=== PATIENT | female | born 1950 | race Caucasian/White ===

== ENCOUNTER 2020-05-20 16:00 | Inpatient (IN) ==
[2020-05-20 16:42] LABS: Basophils # (auto) 0.02 K/uL (0-0.2); Basophils % (auto) 0.3 %; Eosinophils # (auto) 0.03 K/uL (0-0.5); Eosinophils % (auto) 0.4 %; Hematocrit (blood only) 40.1 % (37-47); Hemoglobin 14.7 g/dL (12.0-16.0); Immature Granulocytes # (auto) 0.02 K/uL (0.00-0.02); Immature Granulocytes % (auto) 0.3 %; Lymphocytes # (auto) 1.57 K/uL (1.2-3.4); Lymphocytes % (auto) 20.7 %; Mean Corpuscular Hemoglobin 33.2 pg (25-34); Mean Corpuscular Hgb Conc 36.7 g/dL (32-36); Mean Corpuscular Volume 90.5 fL (80-100); Mean Platelet Volume 10.1 fL (7.4-10.4); Monocytes # (auto) 0.38 K/uL (0.11-0.59); Neutrophils # (auto) 5.57 K/uL (1.4-6.5); Neutrophils % (auto) 73.3 %; Platelet Count 252 K/uL (130-400); RDW Coefficient of Variation 12.5 % (11.5-14.5); RDW Standard Deviation 41.9 fL (36.4-46.3); Red Blood Count 4.43 M/uL (4.2-5.4); White Blood Count 7.59 K/uL (4.8-10.8)
--- NOTE | 2020-05-20 16:51 | CT Scan Report ---
CT head/brain wo con CLINICAL HISTORY: Acute change in mental status COMPARISON STUDY: No previous studies for comparison. TECHNIQUE: Axial CT of the brain is performed from the vertex to the skull base. IV contrast was not administered for this examination. A dose lowering technique was utilized adhering to the principles of ALARA. CT DOSE: 537.48 mGy.cm FINDINGS: No intra or extra-axial mass lesions are visualized. There is no CT evidence of acute cortical infarc tion. There is no evidence of midline shift. There is no acute hemorrhage. No calvarial fractures ar e visualized. There are patchy white matter hypodensities likely on a small vessel basis. There is no evidence of pathologic ventricular dilatation. There is no evidence of acute sinusitis IMPRESSION: No acute intracranial findings ACT 112: Negative or not required by law. Electronically signed by: Micha Mar M.D. 05/20/2020 4:49 PM
[2020-05-20 17:05] LABS: Albumin Level 4.1 gm/dl (3.4-5.0); BUN Creatinine Ratio 15.9 (10-20); Calcium 9.5 mg/dl (8.5-10.1); Creatinine Clr Calc Pharmacy 46.9 ml/min; Est GFR (Non-African American) 77.7; Potassium 4.1 mmol/L (3.5-5.1)
--- NOTE | 2020-05-20 17:08 | XRay Report ---
XR chest 1V portable CLINICAL HISTORY: Acute change in mental status COMPARISON STUDY: No previous studies for comparison. FINDINGS: The cardiac and mediastinal contours are normal. There is no evidence of focal pulmonary co nsolidation. There is no evidence of failure. No pleural effusions are visualized.[There is an electr onic device projected over the central chest, possibly representing an event recorder. A rounded opac ity at the right lung base is felt to represent a nipple shadow. IMPRESSION: No active disease in the chest. ACT 112: Negative or not required by law. Electronically signed by: Micha Mar M.D. 05/20/2020 5:06 PM
[2020-05-20 17:15] LABS: Albumin Globulin Ratio 1.1 (0.9-2); Bilirubin,Total 0.4 mg/dl (0.2-1); Globulin 3.6 gm/dl (2.5-4.0); Thyroid Stimulating Hormone 1.24 uIu/ml (0.300-4.500); Total Protein 7.7 gm/dl (6.4-8.2)
[2020-05-20 17:17] LABS: Acetaminophen < 2 ug/ml (10-30); Salicylate 4.6 mg/dl (2.8-20)
[2020-05-20 18:07] LABS: Appearance Urine Clear (Clear); Bacteria Urine Automated 4+ (Negative); Bilirubin Urine Negative (Negative); Blood Urine 1+ (Negative); Cast Urine Automated 0 /lpf (0-5); Color Urine Yellow; Glucose Urine UA Negative (Negative); Ketones Urine Negative (Negative); Leukocyte Esterase Urine Trace (Negative); Nitrite Urine Negative (Negative); Protein Urine Negative (Negative); Specific Gravity Urine 1.011 (1.000-1.030); Urobilinogen Urine Negative (Negative)
[2020-05-20] MEDS ORDERED: cefTRIAXone SODIUM 1,000 MG/50 ML BAG IV STA (18:19)
[2020-05-20 18:30] LABS: Amphetamines+Metham, Urine Neg (Neg); Barbiturates, Urine Neg (Neg); Benzodiazepine, Urine Neg (Neg); Cocaine, Urine Neg (Neg); MDMA (Ecstacy), Urine Neg (Neg); Methadone, Urine Neg (Neg); Opiate, Urine Neg (Neg); Phencyclidine, Urine Neg (Neg)
--- NOTE | 2020-05-20 18:38 | Emergency Department Note ---
Impression & Plan Thought disorder, Acute hyponatremia, Acute UTI (urinary tract infection), Noncompliance with medication regimen ED Provider Note INFORMANT: Patient, and daughter ED PROVIDER(S): Noble Syed MD CHIEF COMPLAINT: Psychiatric symptoms PLAN: Disposition: Admitted Condition: Good MEDICAL DECISION MAKING: Patient presented to the emergency department because of psychiatric symptoms. She was paranoid. She was anxious and irritable with her family. She has stopped taking her medications. Blood work was obtained. The patient was found to be hyponatremic. Remainder of blood work was unremarkable. Urinalysis was c oncerning for UTI. Patient was given IV Rocephin. ECG did not reveal any acute abnormalities. Chest x-ray head CT were negative. Consultation made with Dr. Sales of the hospitalist service. Patient will be admitted medically for further management. Triage Nursing notes reviewed and agree them. Additional history obtained from patient's daughter. Vital Signs: reviewed and remarkable for hypertension and mild tachycardia Differential diagnosis: Mood disorder, infection, hypoglycemia, electrolyte abnormalities, cardiac sources, intracerebral event, toxicologic, trauma, neurologic, as well as other pathologies. Diagnostics interpreted by me: ECG: Twelve-lead ECG reveals normal sinus rhythm at 99 bpm. Bilateral atrial Kin. No ST elevation or depression. No PACs or PVCs. Normal axis. Imaging studies: Chest x-ray. Findings: A chest x-ray was performed and revealed no pneumothorax, effusion, infiltrate, pulmonary edema, free air under the diaphragm, or wide mediastinum. Impression: No acute disease. Head CT: A noncontrast CT scan of the head was performed and was negative for tumor, fracture, intracranial hemorrhage, or other acute pathology. Consultation(s): [facility] hospitalist service HPI: The patient is a 70 year old female who presents to the Emergency Room with complaints of psychiatric complaints. This started last week and is worsening per the daughter. Patient was exhibiting paranoid behavior today. She was. The patient also notes the following associated symptoms, anxiety, medication noncompliance. The patient has found no relieving factors. Current pain is rated as 0/10. Patient is a heavy smoker but no alcohol. Pt denies LOC, headac he, fevers, chills, diaphoresis, visual changes, neck pain, chest pain, breathing difficulties, nausea, vomiting, abdominal pain, back pain, melena, hematochezia, urinary symptoms, numbness, weakness, lymphadenopathy, rash, or other complaints. ROS: See above HPI for pertinent positives & negatives. A total of 10 systems reviewed and were otherwise negative. PAST MEDICAL HISTORY:Diabetes, see below PAST SURGICAL HISTORY:See Below, FAMILY HISTORY:See Below SOCIAL HISTORY:See Below, smoker HOME MEDICATIONS:See Below ALLERGIES:See Below VITALS:See Below PHYSICAL EXAMINATION: GENERAL: Awake, alert, anxious-appearing, in no distress HENT: Normocephalic, atraumatic. Oropharynx unremarkable. EYES: Normal conjunctiva. Sclera non-icteric. NECK: Inspection normal. Non-tender. Supple. No nuchal rigidity. FROM. No masses. RESPIRATORY: Clear to auscultation. No wheezes. No rales. Normal respiratory effort. CARDIAC: Normal rate. Normal rhythm. No murmurs. No rubs. Extremities warm and well perfused. Pulses equal. No JVD. GI: Soft, non-distended. No tenderness to palpation. No rebound or guarding. No masses. RECTAL: Deferred. MUSCULOSKELETAL: Atraumatic. Chest examination reveals no tenderness. The back is symmetrical on inspection without obvious abnormality. There is no CVA tenderness to palpation. No joint edema. LOWER EXTREMITIES: Calves are equal size bilaterally and non-tender. No edema. No discoloration. NEURO: Normal sensorium. No sensory or motor deficits noted. SKIN: No rash or jaundice noted. PSYCH: No SI or HI. Patient is paranoid. Poor insight and judgment. Noble Syed MD Past Med/Surg History Social History Smoking Status: Current every day smoker Feels Safe at Home: Yes Allergies Allergies Allergy/AdvReac Type Severity Reaction Status Date / Time PCN Allergy Unknown Uncoded 06/23/02 15:11 SULFA Allergy Unknown Uncoded 12/13/03 10:02 X-RAY DYE Allergy Unknown Uncoded 06/23/02 15:11 Home Meds Home Medications Medication Instructions Recorded Confirmed citalopram 20 mg PO DAILY 05/20/20 05/20/20 haloperidol [Haldol] 5 mg PO DAILY 05/20/20 05/20/20 lisinopril 10 mg PO DAILY 05/20/20 05/20/20 metoprolol tartrate 25 mg PO DAILY 05/20/20 05/20/20 nitrofurantoin 100 mg PO DAILY 05/20/20 05/20/20 quetiapine [Seroquel] 100 mg PO HS 05/20/20 05/20/20 quetiapine [Seroquel] 400 mg PO DAILY 05/20/20 05/20/20 simvastatin 40 mg PO PM 05/20/20 05/20/20 sitagliptin [Januvia] 100 mg PO DAILY 05/20/20 05/20/20 Results & Data (ED) Vital Signs Vital Signs - 24 hr 05/20/20 16:04 Temperature 37 C Temperature Source Oral Pulse Rate 106 H Respiratory Rate 18 Blood Pressure 184/89 H Blood Pressure Mean 120 Pulse Oximetry 98 Sepsis Recent Fever Within 48 Hours No Sepsis New/Unexplained Change in Mental Status No Sepsis Action Taken by Nursing No Action Required Laboratory Data Result diagrams: 05/20/20 16:26 05/20/20 16:26 Lab Results 05/20/20 05/20/20 05/20/20 Range/Units 16:26 16:26 16:26 WBC 7.59 (4.8-10.8) K/uL RBC 4.43 (4.2-5.4) M/uL Hgb 14.7 (12.0-16.0) g/dL Hct 40.1 (37-47) % MCV 90.5 (80-100) fL MCH 33.2 (25-34) pg MCHC 36.7 H (32-36) g/dL RDW Std Deviation 41.9 (36.4-46.3) fL RDW Coeff of Gissel 12.5 (11.5-14.5) % Plt Count 252 (130-400) K/uL MPV 10.1 (7.4-10.4) fL Immature Gran % (Auto) 0.3 % Neut % (Auto) 73.3 % Lymph % (Auto) 20.7 % [place] % (Auto) 5.0 % Eos % (Auto) 0.4 % Baso % (Auto) 0.3 % Neut # (Auto) 5.57 (1.4-6.5) K/uL Lymph # (Auto) 1.57 (1.2-3.4) K/uL [place] # (Auto) 0.38 (0.11-0.59) K/uL Eos # (Auto) 0.03 (0-0.5) K/uL Baso # (Auto) 0.02 (0-0.2) K/uL Immature Gran # (Auto) 0.02 (0.00-0.02) K/uL Sodium 122 L (136-145) mmol/L Potassium 4.1 (3.5-5.1) mmol/L Chloride 88 L (98-107) mmol/L Carbon Dioxide 25 (21-32) mmol/L Anion Gap 9.0 (3-11) BUN 12 (7-18) mg/dl Creatinine 0.77 (0.6-1.2) mg/dl Est Cr Clr Drug Dosing 46.9 ml/min Est GFR ( Amer) 90.0 Est GFR (Non-Af Amer) 77.7 BUN/Creatinine Ratio 15.9 (10-20) Glucose 166 H (70-99) mg/dl Calcium 9.5 (8.5-10.1) mg/dl Total Bilirubin 0.4 (0.2-1) mg/dl AST 15 (15-37) U/L ALT 24 (12-78) U/L Alkaline Phosphatase 134 H (45-117) U/L Total Protein 7.7 (6.4-8.2) gm/dl Albumin 4.1 (3.4-5.0) gm/dl Globulin 3.6 (2.5-4.0) gm/dl Albumin/Globulin Ratio 1.1 (0.9-2) TSH 1.240 (0.300-4.500) uIu/ml Urine Color Urine Appearance (Clear) Urine pH (4.5-7.5) Ur Specific [place] (1.000-1.030) Urine Protein (Negative) Urine Glucose (UA) (Negative) Urine Ketones (Negative) Urine Blood (Negative) Urine Nitrite (Negative) Urine Bilirubin (Negative) Urine Urobilinogen (Negative) Ur Leukocyte Esterase (Negative) Urine WBC (Auto) (0-5) /hpf Urine RBC (Auto) (0-4) /hpf U Hyaline Cast (Auto) (0-5) /lpf U Epithel Cells (Auto) (0-5) /lpf Urine Bacteria (Auto) (Negative) Urine Osmolality (500-800) mOsm/kg Ur Random Creatinine mg/dl Ur Random Sodium mmol/L Salicylates 4.6 (2.8-20) mg/dl Urine Opiates Screen (Neg) Ur Methadone, Qual (Neg) Acetaminophen < 2 L (10-30) ug/ml Urine Barbiturates (Neg) Ur Phencyclidine (PCP) (Neg) U Amphetamin/Meth Scrn (Neg) MDMA (Ecstasy) Screen (Neg) U Benzodiazepines Scrn (Neg) Ur Cocaine Metabolite (Neg) U Marijuana (THC) Screen (Neg) Ethyl Alcohol mg/dL (0-3) mg/dl COVID-19 Eval Order SARS-CoV-2, RNA, NAAT (NEGATIVE) 05/20/20 05/20/20 05/20/20 Range/Units 16:26 17:40 17:40 WBC (4.8-10.8) K/uL RBC (4.2-5.4) M/uL Hgb (12.0-16.0) g/dL Hct (37-47) % MCV (80-100) fL MCH (25-34) pg MCHC (32-36) g/dL RDW Std Deviation (36.4-46.3) fL RDW Coeff of Gissel (11.5-14.5) % Plt Count (130-400) K/uL MPV (7.4-10.4) fL Immature Gran % (Auto) % Neut % (Auto) % Lymph % (Auto) % [place] % (Auto) % Eos % (Auto) % Baso % (Auto) % Neut # (Auto) (1.4-6.5) K/uL Lymph # (Auto) (1.2-3.4) K/uL [place] # (Auto) (0.11-0.59) K/uL Eos # (Auto) (0-0.5) K/uL Baso # (Auto) (0-0.2) K/uL Immature Gran # (Auto) (0.00-0.02) K/uL Sodium (136-145) mmol/L Potassium (3.5-5.1) mmol/L Chloride (98-107) mmol/L Carbon Dioxide (21-32) mmol/L Anion Gap (3-11) BUN (7-18) mg/dl Creatinine (0.6-1.2) mg/dl Est Cr Clr Drug Dosing ml/min Est GFR ( Amer) Est GFR (Non-Af Amer) BUN/Creatinine Ratio (10-20) Glucose (70-99) mg/dl Calcium (8.5-10.1) mg/dl Total Bilirubin (0.2-1) mg/dl AST (15-37) U/L ALT (12-78) U/L Alkaline Phosphatase (45-117) U/L Total Protein (6.4-8.2) gm/dl Albumin (3.4-5.0) gm/dl Globulin (2.5-4.0) gm/dl Albumin/Globulin Ratio (0.9-2) TSH (0.300-4.500) uIu/ml Urine Color Urine Appearance (Clear) Urine pH (4.5-7.5) Ur Specific [place] (1.000-1.030) Urine Protein (Negative) Urine Glucose (UA) (Negative) Urine Ketones (Negative) Urine Blood (Negative) Urine Nitrite (Negative) Urine Bilirubin (Negative) Urine Urobilinogen (Negative) Ur Leukocyte Esterase (Negative) Urine WBC (Auto) (0-5) /hpf Urine RBC (Auto) (0-4) /hpf U Hyaline Cast (Auto) (0-5) /lpf U Epithel Cells (Auto) (0-5) /lpf Urine Bacteria (Auto) (Negative) Urine Osmolality (500-800) mOsm/kg Ur Random Creatinine mg/dl Ur Random Sodium mmol/L Salicylates (2.8-20) mg/dl Urine Opiates Screen (Neg) Ur Methadone, Qual (Neg) Acetaminophen (10-30) ug/ml Urine Barbiturates (Neg) Ur Phencyclidine (PCP) (Neg) U Amphetamin/Meth Scrn (Neg) MDMA (Ecstasy) Screen (Neg) U Benzodiazepines Scrn (Neg) Ur Cocaine Metabolite (Neg) U Marijuana (THC) Screen (Neg) Ethyl Alcohol mg/dL < 3.0 (0-3) mg/dl COVID-19 Eval Order Covid19 IDNow atMMIC SARS-CoV-2, RNA, NAAT NEGATIVE (NEGATIVE) 05/20/20 05/20/20 05/20/20 Range/Units 17:52 17:52 17:57 WBC (4.8-10.8) K/uL RBC (4.2-5.4) M/uL Hgb (12.0-16.0) g/dL Hct (37-47) % MCV (80-100) fL MCH (25-34) pg MCHC (32-36) g/dL RDW Std Deviation (36.4-46.3) fL RDW Coeff of Gissel (11.5-14.5) % Plt Count (130-400) K/uL MPV (7.4-10.4) fL Immature Gran % (Auto) % Neut % (Auto) % Lymph % (Auto) % [place] % (Auto) % Eos % (Auto) % Baso % (Auto) % Neut # (Auto) (1.4-6.5) K/uL Lymph # (Auto) (1.2-3.4) K/uL [place] # (Auto) (0.11-0.59) K/uL Eos # (Auto) (0-0.5) K/uL Baso # (Auto) (0-0.2) K/uL Immature Gran # (Auto) (0.00-0.02) K/uL Sodium (136-145) mmol/L Potassium (3.5-5.1) mmol/L Chloride (98-107) mmol/L Carbon Dioxide (21-32) mmol/L Anion Gap (3-11) BUN (7-18) mg/dl Creatinine (0.6-1.2) mg/dl Est Cr Clr Drug Dosing ml/min Est GFR ( Amer) Est GFR (Non-Af Amer) BUN/Creatinine Ratio (10-20) Glucose (70-99) mg/dl Calcium (8.5-10.1) mg/dl Total Bilirubin (0.2-1) mg/dl AST (15-37) U/L ALT (12-78) U/L Alkaline Phosphatase (45-117) U/L Total Protein (6.4-8.2) gm/dl Albumin (3.4-5.0) gm/dl Globulin (2.5-4.0) gm/dl Albumin/Globulin Ratio (0.9-2) TSH (0.300-4.500) uIu/ml Urine Color Yellow Urine Appearance Clear (Clear) Urine pH 7.0 (4.5-7.5) Ur Specific [place] 1.011 (1.000-1.030) Urine Protein Negative (Negative) Urine Glucose (UA) Negative (Negative) Urine Ketones Negative (Negative) Urine Blood 1+ H (Negative) Urine Nitrite Negative (Negative) Urine Bilirubin Negative (Negative) Urine Urobilinogen Negative (Negative) Ur Leukocyte Esterase Trace H (Negative) Urine WBC (Auto) 10-30 H (0-5) /hpf Urine RBC (Auto) 5-10 H (0-4) /hpf U Hyaline Cast (Auto) 0 (0-5) /lpf U Epithel Cells (Auto) 5-10 H (0-5) /lpf Urine Bacteria (Auto) 4+ H (Negative) Urine Osmolality 229 L (500-800) mOsm/kg Ur Random Creatinine 15.0 mg/dl Ur Random Sodium 43 mmol/L Salicylates (2.8-20) mg/dl Urine Opiates Screen (Neg) Ur Methadone, Qual (Neg) Acetaminophen (10-30) ug/ml Urine Barbiturates (Neg) Ur Phencyclidine (PCP) (Neg) U Amphetamin/Meth Scrn (Neg) MDMA (Ecstasy) Screen (Neg) U Benzodiazepines Scrn (Neg) Ur Cocaine Metabolite (Neg) U Marijuana (THC) Screen (Neg) Ethyl Alcohol mg/dL (0-3) mg/dl COVID-19 Eval Order SARS-CoV-2, RNA, NAAT (NEGATIVE) 05/20/20 Range/Units 17:57 WBC (4.8-10.8) K/uL RBC (4.2-5.4) M/uL Hgb (12.0-16.0) g/dL Hct (37-47) % MCV (80-100) fL MCH (25-34) pg MCHC (32-36) g/dL RDW Std Deviation (36.4-46.3) fL RDW Coeff of Gissel (11.5-14.5) % Plt Count (130-400) K/uL MPV (7.4-10.4) fL Immature Gran % (Auto) % Neut % (Auto) % Lymph % (Auto) % [place] % (Auto) % Eos % (Auto) % Baso % (Auto) % Neut # (Auto) (1.4-6.5) K/uL Lymph # (Auto) (1.2-3.4) K/uL [place] # (Auto) (0.11-0.59) K/uL Eos # (Auto) (0-0.5) K/uL Baso # (Auto) (0-0.2) K/uL Immature Gran # (Auto) (0.00-0.02) K/uL Sodium (136-145) mmol/L Potassium (3.5-5.1) mmol/L Chloride (98-107) mmol/L Carbon Dioxide (21-32) mmol/L Anion Gap (3-11) BUN (7-18) mg/dl Creatinine (0.6-1.2) mg/dl Est Cr Clr Drug Dosing ml/min Est GFR ( Amer) Est GFR (Non-Af Amer) BUN/Creatinine Ratio (10-20) Glucose (70-99) mg/dl Calcium (8.5-10.1) mg/dl Total Bilirubin (0.2-1) mg/dl AST (15-37) U/L ALT (12-78) U/L Alkaline Phosphatase (45-117) U/L Total Protein (6.4-8.2) gm/dl Albumin (3.4-5.0) gm/dl Globulin (2.5-4.0) gm/dl Albumin/Globulin Ratio (0.9-2) TSH (0.300-4.500) uIu/ml Urine Color Urine Appearance (Clear) Urine pH (4.5-7.5) Ur Specific [place] (1.000-1.030) Urine Protein (Negative) Urine Glucose (UA) (Negative) Urine Ketones (Negative) Urine Blood (Negative) Urine Nitrite (Negative) Urine Bilirubin (Negative) Urine Urobilinogen (Negative) Ur Leukocyte Esterase (Negative) Urine WBC (Auto) (0-5) /hpf Urine RBC (Auto) (0-4) /hpf U Hyaline Cast (Auto) (0-5) /lpf U Epithel Cells (Auto) (0-5) /lpf Urine Bacteria (Auto) (Negative) Urine Osmolality (500-800) mOsm/kg Ur Random Creatinine mg/dl Ur Random Sodium mmol/L Salicylates (2.8-20) mg/dl Urine Opiates Screen Neg (Neg) Ur Methadone, Qual Neg (Neg) Acetaminophen (10-30) ug/ml Urine Barbiturates Neg (Neg) Ur Phencyclidine (PCP) Neg (Neg) U Amphetamin/Meth Scrn Neg (Neg) MDMA (Ecstasy) Screen Neg (Neg) U Benzodiazepines Scrn Neg (Neg) Ur Cocaine Metabolite Neg (Neg) U Marijuana (THC) Screen Neg (Neg) Ethyl Alcohol mg/dL (0-3) mg/dl COVID-19 Eval Order SARS-CoV-2, RNA, NAAT (NEGATIVE) Discharge Plan Visit Data Chief Complaint: Psychiatric Symptoms/Problems Stated Complaint: SCHIZOPHRENIC, NOT TAKING MEDS, PSYCHOSIS ED Provider: Noble Syed Discharge Problem: Thought disorder, Acute hyponatremia, Acute UTI (urinary tract infection), Noncompliance with medication regimen Forms Stand Alone Forms: My [facility], Suicide Prevention Resources Prescriptions Prescriptions: No Action haloperidol [Haldol] 5 mg Tablet 5 mg PO DAILY RF: 0 nitrofurantoin 100 mg Capsule 100 mg PO DAILY RF: 0 quetiapine [Seroquel] 100 mg Tablet 100 mg PO HS RF: 0 simvastatin 40 mg Tablet 40 mg PO PM RF: 0 citalopram 20 mg Tablet 20 mg PO DAILY RF: 0 lisinopril 10 mg Tablet 10 mg PO DAILY RF: 0 metoprolol tartrate 25 mg Tablet 25 mg PO DAILY RF: 0 quetiapine [Seroquel] 400 mg Tablet 400 mg PO DAILY RF: 0 Januvia 100 mg Tablet 100 mg PO DAILY RF: 0
--- NOTE | 2020-05-20 19:52 | History & Physical Report ---
Date of Service May 20, 2020 Assessment & Plan (1) Acute UTI (urinary tract infection): Patient has received Rocephin. We will continue this medication and adjust antibiotics based on the urine culture when available. (2) Right leg swelling: He denies any trauma to this extremity. It has not been painful. We will check a lower extremity venous ultrasound to ensure she does not have a DVT. (3) Wound of foot: We will ask the wound care nurse to evaluate this prior to discharge. (4) Acute hyponatremia: Dates of the patient's history and her hyponatremia may be from excessive water consumption. We will fluid restrict her to 1.5 L daily. We will follow serial sodium levels every 4 hours. I did discuss with the patient the possibility of excessive water consumption causing her hyponatremia. She expressed understanding. We will utilize Lovenox for DVT prevention I did discuss CODE STATUS with this patient in event of cardiopulmonary arrest she wishes to be a level 1 full code History of Present Illness Chief Complaint: My sodium is low Primary Care Provider: NO PCP This is a 70-year-old female who came to the emergency department due to reported paranoia. Patient became anxious and irritable with her family and therefore stopped taking her medications as prescribed. At the time of my interview she denied the desire to harm herself or others. Evaluation in the emergency department consisted of labs were CBC revealed white blood cell count, hemoglobin and hematocrit, and platelet count all within normal range. She did have a chemistry profile where her sodium was markedly low at 122. Potassium, BUN, and creatinine were all noted to be within normal range. Serum osmolality was noted to be 257. Urine osmolality was noted to be 229. There is also concern for urinary tract infection on her urinalysis. Chest x-ray was negative for pneumonia. In addition she underwent a CT scan of her head that showed no acute intracranial abnormalities. Did question patient on multiple things she denies any headache blurred or double vision. She denies cough or shortness of breath. She notes she has been afebrile. She claims to have been taking her medications as prescribed. I did question her about fluid intake and she estimated that she drinks nearly 6 L of water per day. She was unsure of how long she has been doing this. To the best of her knowledge she has never suffered a seizure. She does report some nonpainful swelling of her right lower extremity. In addition she has a blister on her right foot at the base of her first metatarsal. At the time of my interview she was resting comfortably at bedside and she was in no distress. Allergies Allergy/AdvReac Type Severity Reaction Status Date / Time PCN Allergy Unknown Uncoded 06/23/02 15:11 SULFA Allergy Unknown Uncoded 12/13/03 10:02 X-RAY DYE Allergy Unknown Uncoded 06/23/02 15:11 Home Medications Medication Instructions Recorded Confirmed Type citalopram 20 mg PO DAILY 05/20/20 05/20/20 History haloperidol [Haldol] 5 mg PO DAILY 05/20/20 05/20/20 History lisinopril 10 mg PO DAILY 05/20/20 05/20/20 History metoprolol tartrate 25 mg PO DAILY 05/20/20 05/20/20 History nitrofurantoin 100 mg PO DAILY 05/20/20 05/20/20 History quetiapine [Seroquel] 100 mg PO HS 05/20/20 05/20/20 History quetiapine [Seroquel] 400 mg PO DAILY 05/20/20 05/20/20 History simvastatin 40 mg PO PM 05/20/20 05/20/20 History sitagliptin [Januvia] 100 mg PO DAILY 05/20/20 05/20/20 History Past Med/Surg History Social History Smoking Status: Current every day smoker Cigarettes Per Day: "I dont know"; Hx Alcohol Use: No Hx Substance Use: No Preferred Language: Dutch Communication Ability: Effective Engineering Teacher Required: No Beliefs That Will Affect Care: None Current Living Situation: Alone Feels Safe at Home: Yes Safety Concerns: Feels Safe At This Time Assistive Devices: Cane Review of Systems Constitutional: no fever, no chills and no fatigue Eyes: no blind spots and no diplopia Ear, Nose, Mouth, Throat: no ear pain, no tinnitus and no dizziness Respiratory: no cough and no dyspnea Cardiovascular: no chest pain Gastrointestinal: no abdominal pain, no nausea and no vomiting Genitourinary: no dysuria Musculoskeletal: no back pain Integumentary: no rash Neurologic: no localized weakness Psychiatric: no suicidal ideation and no homicidal ideation Physical Exam Constitutional: well developed and well nourished; no acute distress Eyes: no conjunctival abnormality Wears glasses ENMT: Ears: no hearing impairment Mucous membranes are moist Neck: trachea midline Respiratory: normal respiratory effort, lungs clear to auscultation Cardiovascular: Rate/Rhythm: regular rate and regular rhythm Gastrointestinal (Abdomen): Percussion/Palpation: abdomen soft; abdomen nontender Musculoskeletal: No calf tenderness. Patient had notable swelling of the right lower extremity. There is no pain. Patient had approximately 2 mm x 2 mm lesion at the base of the first metatarsal. There is a scab over this lesion. There is no malodorous discharge. No crepitus was noted in the soft tissue. Skin: no rashes, warm and dry Neurologic: CN's II-XI intact bilaterally and moves all extremities Psychiatric: A+Ox3, euthymic affect Results & Data Results & Data ([facility]) Vital Signs (Past 12 Hours) Vital Signs Temp Pulse Pulse Resp BP BP Pulse Ox 05/20/20 19:31 92 H 16 175/81 H 94 05/20/20 16:04 37 C 106 H 18 184/89 H 98 Supervising Physician Co-Signing Physician Notes I personally saw and examined the patient. I verified all kapadia points and agree with KAILA Quiñonez with the following exceptions and/or additions: 70 year old female admission for paranoia. In the ER noted to be hyponatremic in addition to UA with 4+ bacteria although no specific symptoms of this but given paranoia difficult to be sure of this therefore will treat. O/E right leg swelling and edema, no calf pain, Chest CTAB, HS 1+2, no murmurs, no CVA tenderness, abdo, SNT, BS +ve, no current hallucinations or suicidal/homicidal ideation noted by patient (prior auditory hallucination with voices) A/P Acute hyponatremia - secondary to excessive free water intake, water restriction Possible UTI - Continue ceftriaxone 1g IV daily Right leg swelling - US venous Doppler to assess for DVT PG Care Time/CCT Total # of Minutes Spent Total Time Spent with Patient: Total time spent is greater than 50% in coordination of care (as documented) at patient's floor/unit and/or counseling patient: Coding Level of Care Code 54753 Initial Inpt Care Lvl 2 Diagnoses Acute UTI (urinary tract infection) N39.0 Right leg swelling M79.89 Wound of foot S91.309A Acute hyponatremia E87.1
[2020-05-20] MEDS: SIMVASTATIN 40 MG TAB PO SCH (22:08)
[2020-05-20] MEDS: SODIUM CHLORIDE 0.9% 1000ML 1,000 ML IV SCH (22:08)
[2020-05-20] MEDS: QUEtiapine FUMARATE 100 MG TABLET PO SCH (22:08)
[2020-05-20] MEDS: INSULIN ASPART 100 UNITS/ML 3 ML PEN SC SCH (22:08)
[2020-05-21 01:57] LABS: BUN Creatinine Ratio 15.7 (10-20); Calcium 8.7 mg/dl (8.5-10.1); Creatinine Clr Calc Pharmacy 59.2 ml/min; Est GFR (African American) 105.7; Est GFR (Non-African American) 91.2; Potassium 3.5 mmol/L (3.5-5.1)
[2020-05-21 04:59] LABS: Prothrombin Time 10.7 Seconds (9.0-12.0)
[2020-05-21 05:04] LABS: BUN Creatinine Ratio 12.6 (10-20); Calcium 8.7 mg/dl (8.5-10.1); Creatinine Clr Calc Pharmacy 50.9 ml/min; Est GFR (African American) 99.3; Est GFR (Non-African American) 85.7; Potassium 3.8 mmol/L (3.5-5.1)
--- NOTE | 2020-05-21 06:38 | Ultrasound Report ---
BILATERAL LOWER EXTREMITY VENOUS DOPPLER CLINICAL HISTORY: swelling COMPARISON STUDY: No previous studies for comparison. TECHNIQUE: Sonography of the deep venous system of the bilateral lower extremities was performed. Co mpression and augmentation were evaluated. FINDINGS: The bilateral common femoral, superficial femoral and popliteal veins were compressible. A ugmentation was normal. Flow was shown within the deep calf vessels. IMPRESSION: No evidence of deep venous thrombus within the bilateral lower extremities. ACT 112: Negative or not required by law. Electronically signed by: Gus Vargas M.D. 05/21/2020 6:36 AM
[2020-05-21] MEDS: SITagliptin PHOSPHATE 100 MG TAB PO SCH (08:30)
[2020-05-21] MEDS: lisinopril 10 MG TAB PO SCH (08:30)
[2020-05-21] MEDS: haloperidoL 5 MG TAB PO SCH (08:30)
[2020-05-21] MEDS: METOPROLOL TARTRATE 25 MG TAB PO SCH (08:30)
[2020-05-21] MEDS: QUEtiapine FUMARATE 200 MG TAB PO SCH (08:30)
[2020-05-21] MEDS: CITALOPRAM 20 MG TAB PO SCH (08:31)
[2020-05-21] MEDS: INSULIN ASPART 100 UNITS/ML 3 ML PEN SC SCH ×4 (08:33→20:59)
--- NOTE | 2020-05-21 08:40 | Hospitalist Progress Note ---
Date of Service May 21, 2020 Assessment & Plan (1) Acute UTI (urinary tract infection): * Patient was received Rocephin in ER -- continue * Urine culture with gram negative bacilli -- follow. Transition to PO abx when available * Continue IVF NS @50cc/hr * Fluid restriction for polydipsia with consumption reported 6L/day * Will order PT/OT given reported weakness * Labs in AM (2) Right leg swelling: * She denies any trauma to this extremity, although did report falls * Dopplers NEGATIVE for DVT * Painful by report today, although improved -- denies need for any pain medication * Pt/ot as above (3) Wound of foot: * Wound RN consulted (4) Acute hyponatremia: * Dates of the patient's history and her hyponatremia may be from excessive water consumption. * Urine studies c/w excessive free water intake * We will fluid restrict her to 1.5 L daily. * Serial labs with improvement of Na from 122 to 127 -- continue IVF as above and continue to monitor * TSH 1.240 * Fluid restriction -- to continue at discharge and was discussed with patient, and daughter Renae on telephone today Diabetes Mellitus II * Will check A1c with AM labs * Hold januvia while inpatient * ISS while inpatient * BSGs acceptable Essential Hypertension * BP acceptable, currently 138/73 * Continue home lisinopril 10mg, metoprolol 25mg daily * Continue to monitor Anxiety/Depression/Thought Disorder * Continue citalopram, haloperidol, seroquel * Consider SSRI contributing to hyponatremia as well -- will discuss with pt/daughter on when this was initiated if an acute issue DVT Prophylaxis * Lovenox Full Code Dispo: continued inpatient stay -- possible discharge Thursday if able to transition to PO abx and sodium improved. Updated Daughter, Renae, on phone this morning. Admission and Anticipated Discharge Date Admission Date: May 20, 2020 Subjective Patient evaluated this morning, resting comfortably in bed. Endorses at least 6L of water daily, and after updating daughter Renae on phone, patient consuming considerable amount of coffee with her water at home. Discussed low sodium levels and UTI and will follow cultures prior to transition to oral abx and will continue IVF to help with sodium levels but likely restriction will be continued at discharge to prevent in the future. Daughter initially worried about her mother's diabetes with increased thirst but thought maybe low sodium also contributing to confusion, which is improving. Patient states she has pain to her left leg from the fall but does endorse some weakness prior to the fall, which could be contributed by UTI/low sodium as well, and is improving with treatment. Has not been up to work with therapy at all. Discussed will order, however patient's typically able to do tasks at home without issues. No fever, chills, chest pain, shortness of breath, abdominal pain, nausea, vomiting, dysuria or hematuria at this time. Review of Systems Review of Systems: All systems reviewed & are unremarkable except as noted in HPI & below Physical Exam Constitutional: well developed and well nourished; no acute distress Eyes: no conjunctival abnormality ENMT: Ears: no hearing impairment Neck: trachea midline Respiratory: normal respiratory effort, lungs clear to auscultation Cardiovascular: Rate/Rhythm: regular rate and regular rhythm Extremities: + edema (L>R, non-tender, non-pitting) Gastrointestinal (Abdomen): Percussion/Palpation: abdomen soft; abdomen nontender Musculoskeletal: no cyanosis or clubbing, extremities motor strength 5/5 2x2mm lesion 1st metatarsal with scab over lesion, no drainage/erythema noted Skin: no rashes, warm and dry Neurologic: CN's II-XI intact bilaterally and moves all extremities Psychiatric: A+Ox3, euthymic affect Genitourinary: NO BAIRD Lymphatic: no cervical or axillary lymphadenopathy Results & Data Results & Data ([facility]) Vital Signs (Past 12 Hours) Vital Signs Temp Pulse Resp BP BP Pulse Ox 05/21/20 03:14 152/89 H 05/21/20 03:13 37.2 C 96 H 16 185/94 H 94 05/20/20 23:29 36.8 C 93 H 16 148/82 H 93 05/20/20 21:55 36.8 C 88 16 175/92 H 94 Laboratory Results 05/21/20 05/21/20 05/21/20 Range/Units 04:34 04:34 00:30 WBC (4.8-10.8) K/uL RBC (4.2-5.4) M/uL Hgb (12.0-16.0) g/dL Hct (37-47) % MCV (80-100) fL MCH (25-34) pg MCHC (32-36) g/dL RDW Std Deviation (36.4-46.3) fL RDW Coeff of Gissel (11.5-14.5) % Plt Count (130-400) K/uL MPV (7.4-10.4) fL Immature Gran % (Auto) % Neut % (Auto) % Lymph % (Auto) % [place] % (Auto) % Eos % (Auto) % Baso % (Auto) % Neut # (Auto) (1.4-6.5) K/uL Lymph # (Auto) (1.2-3.4) K/uL [place] # (Auto) (0.11-0.59) K/uL Eos # (Auto) (0-0.5) K/uL Baso # (Auto) (0-0.2) K/uL Immature Gran # (Auto) (0.00-0.02) K/uL PT 10.7 (9.0-12.0) Seconds INR 1.0 (0.9-1.1) Sodium 127 L 125 L (136-145) mmol/L Potassium 3.8 3.5 (3.5-5.1) mmol/L Chloride 94 L 92 L (98-107) mmol/L Carbon Dioxide 29 27 (21-32) mmol/L Anion Gap 4.0 6.0 (3-11) BUN 9 10 (7-18) mg/dl Creatinine 0.71 0.61 (0.6-1.2) mg/dl Est Cr Clr Drug Dosing 50.9 59.2 ml/min Est GFR ( Amer) 99.3 105.7 Est GFR (Non-Af Amer) 85.7 91.2 BUN/Creatinine Ratio 12.6 15.7 (10-20) Glucose 181 H 167 H (70-99) mg/dl POC Glucose (70-99) mg/dl Osmolality (280-300) mOsm/kg Calcium 8.7 8.7 (8.5-10.1) mg/dl Total Bilirubin (0.2-1) mg/dl AST (15-37) U/L ALT (12-78) U/L Alkaline Phosphatase (45-117) U/L Total Protein (6.4-8.2) gm/dl Albumin (3.4-5.0) gm/dl Globulin (2.5-4.0) gm/dl Albumin/Globulin Ratio (0.9-2) TSH (0.300-4.500) uIu/ml Urine Color Urine Appearance (Clear) Urine pH (4.5-7.5) Ur Specific [place] (1.000-1.030) Urine Protein (Negative) Urine Glucose (UA) (Negative) Urine Ketones (Negative) Urine Blood (Negative) Urine Nitrite (Negative) Urine Bilirubin (Negative) Urine Urobilinogen (Negative) Ur Leukocyte Esterase (Negative) Urine WBC (Auto) (0-5) /hpf Urine RBC (Auto) (0-4) /hpf U Hyaline Cast (Auto) (0-5) /lpf U Epithel Cells (Auto) (0-5) /lpf Urine Bacteria (Auto) (Negative) Urine Osmolality (500-800) mOsm/kg Ur Random Creatinine mg/dl Ur Random Sodium mmol/L Salicylates (2.8-20) mg/dl Urine Opiates Screen (Neg) Ur Methadone, Qual (Neg) Acetaminophen (10-30) ug/ml Urine Barbiturates (Neg) Ur Phencyclidine (PCP) (Neg) U Amphetamin/Meth Scrn (Neg) MDMA (Ecstasy) Screen (Neg) U Benzodiazepines Scrn (Neg) Ur Cocaine Metabolite (Neg) U Marijuana (THC) Screen (Neg) Ethyl Alcohol mg/dL (0-3) mg/dl COVID-19 Eval Order SARS-CoV-2, RNA, NAAT (NEGATIVE) 05/20/20 05/20/20 05/20/20 Range/Units 21:56 20:13 17:57 WBC (4.8-10.8) K/uL RBC (4.2-5.4) M/uL Hgb (12.0-16.0) g/dL Hct (37-47) % MCV (80-100) fL MCH (25-34) pg MCHC (32-36) g/dL RDW Std Deviation (36.4-46.3) fL RDW Coeff of Gissel (11.5-14.5) % Plt Count (130-400) K/uL MPV (7.4-10.4) fL Immature Gran % (Auto) % Neut % (Auto) % Lymph % (Auto) % [place] % (Auto) % Eos % (Auto) % Baso % (Auto) % Neut # (Auto) (1.4-6.5) K/uL Lymph # (Auto) (1.2-3.4) K/uL [place] # (Auto) (0.11-0.59) K/uL Eos # (Auto) (0-0.5) K/uL Baso # (Auto) (0-0.2) K/uL Immature Gran # (Auto) (0.00-0.02) K/uL PT (9.0-12.0) Seconds INR (0.9-1.1) Sodium 123 L (136-145) mmol/L Potassium (3.5-5.1) mmol/L Chloride (98-107) mmol/L Carbon Dioxide (21-32) mmol/L Anion Gap (3-11) BUN (7-18) mg/dl Creatinine (0.6-1.2) mg/dl Est Cr Clr Drug Dosing ml/min Est GFR ( Amer) Est GFR (Non-Af Amer) BUN/Creatinine Ratio (10-20) Glucose (70-99) mg/dl POC Glucose 177 H (70-99) mg/dl Osmolality (280-300) mOsm/kg Calcium (8.5-10.1) mg/dl Total Bilirubin (0.2-1) mg/dl AST (15-37) U/L ALT (12-78) U/L Alkaline Phosphatase (45-117) U/L Total Protein (6.4-8.2) gm/dl Albumin (3.4-5.0) gm/dl Globulin (2.5-4.0) gm/dl Albumin/Globulin Ratio (0.9-2) TSH (0.300-4.500) uIu/ml Urine Color Urine Appearance (Clear) Urine pH (4.5-7.5) Ur Specific [place] (1.000-1.030) Urine Protein (Negative) Urine Glucose (UA) (Negative) Urine Ketones (Negative) Urine Blood (Negative) Urine Nitrite (Negative) Urine Bilirubin (Negative) Urine Urobilinogen (Negative) Ur Leukocyte Esterase (Negative) Urine WBC (Auto) (0-5) /hpf Urine RBC (Auto) (0-4) /hpf U Hyaline Cast (Auto) (0-5) /lpf U Epithel Cells (Auto) (0-5) /lpf Urine Bacteria (Auto) (Negative) Urine Osmolality (500-800) mOsm/kg Ur Random Creatinine mg/dl Ur Random Sodium mmol/L Salicylates (2.8-20) mg/dl Urine Opiates Screen Neg (Neg) Ur Methadone, Qual Neg (Neg) Acetaminophen (10-30) ug/ml Urine Barbiturates Neg (Neg) Ur Phencyclidine (PCP) Neg (Neg) U Amphetamin/Meth Scrn Neg (Neg) MDMA (Ecstasy) Screen Neg (Neg) U Benzodiazepines Scrn Neg (Neg) Ur Cocaine Metabolite Neg (Neg) U Marijuana (THC) Screen Neg (Neg) Ethyl Alcohol mg/dL (0-3) mg/dl COVID-19 Eval Order SARS-CoV-2, RNA, NAAT (NEGATIVE) 05/20/20 05/20/20 05/20/20 Range/Units 17:57 17:52 17:52 WBC (4.8-10.8) K/uL RBC (4.2-5.4) M/uL Hgb (12.0-16.0) g/dL Hct (37-47) % MCV (80-100) fL MCH (25-34) pg MCHC (32-36) g/dL RDW Std Deviation (36.4-46.3) fL RDW Coeff of Gissel (11.5-14.5) % Plt Count (130-400) K/uL MPV (7.4-10.4) fL Immature Gran % (Auto) % Neut % (Auto) % Lymph % (Auto) % [place] % (Auto) % Eos % (Auto) % Baso % (Auto) % Neut # (Auto) (1.4-6.5) K/uL Lymph # (Auto) (1.2-3.4) K/uL [place] # (Auto) (0.11-0.59) K/uL Eos # (Auto) (0-0.5) K/uL Baso # (Auto) (0-0.2) K/uL Immature Gran # (Auto) (0.00-0.02) K/uL PT (9.0-12.0) Seconds INR (0.9-1.1) Sodium (136-145) mmol/L Potassium (3.5-5.1) mmol/L Chloride (98-107) mmol/L Carbon Dioxide (21-32) mmol/L Anion Gap (3-11) BUN (7-18) mg/dl Creatinine (0.6-1.2) mg/dl Est Cr Clr Drug Dosing ml/min Est GFR ( Amer) Est GFR (Non-Af Amer) BUN/Creatinine Ratio (10-20) Glucose (70-99) mg/dl POC Glucose (70-99) mg/dl Osmolality (280-300) mOsm/kg Calcium (8.5-10.1) mg/dl Total Bilirubin (0.2-1) mg/dl AST (15-37) U/L ALT (12-78) U/L Alkaline Phosphatase (45-117) U/L Total Protein (6.4-8.2) gm/dl Albumin (3.4-5.0) gm/dl Globulin (2.5-4.0) gm/dl Albumin/Globulin Ratio (0.9-2) TSH (0.300-4.500) uIu/ml Urine Color Yellow Urine Appearance Clear (Clear) Urine pH 7.0 (4.5-7.5) Ur Specific [place] 1.011 (1.000-1.030) Urine Protein Negative (Negative) Urine Glucose (UA) Negative (Negative) Urine Ketones Negative (Negative) Urine Blood 1+ H (Negative) Urine Nitrite Negative (Negative) Urine Bilirubin Negative (Negative) Urine Urobilinogen Negative (Negative) Ur Leukocyte Esterase Trace H (Negative) Urine WBC (Auto) 10-30 H (0-5) /hpf Urine RBC (Auto) 5-10 H (0-4) /hpf U Hyaline Cast (Auto) 0 (0-5) /lpf U Epithel Cells (Auto) 5-10 H (0-5) /lpf Urine Bacteria (Auto) 4+ H (Negative) Urine Osmolality 229 L (500-800) mOsm/kg Ur Random Creatinine 15.0 mg/dl Ur Random Sodium 43 mmol/L Salicylates (2.8-20) mg/dl Urine Opiates Screen (Neg) Ur Methadone, Qual (Neg) Acetaminophen (10-30) ug/ml Urine Barbiturates (Neg) Ur Phencyclidine (PCP) (Neg) U Amphetamin/Meth Scrn (Neg) MDMA (Ecstasy) Screen (Neg) U Benzodiazepines Scrn (Neg) Ur Cocaine Metabolite (Neg) U Marijuana (THC) Screen (Neg) Ethyl Alcohol mg/dL (0-3) mg/dl COVID-19 Eval Order SARS-CoV-2, RNA, NAAT (NEGATIVE) 05/20/20 05/20/20 05/20/20 Range/Units 17:40 17:40 16:26 WBC (4.8-10.8) K/uL RBC (4.2-5.4) M/uL Hgb (12.0-16.0) g/dL Hct (37-47) % MCV (80-100) fL MCH (25-34) pg MCHC (32-36) g/dL RDW Std Deviation (36.4-46.3) fL RDW Coeff of Gissel (11.5-14.5) % Plt Count (130-400) K/uL MPV (7.4-10.4) fL Immature Gran % (Auto) % Neut % (Auto) % Lymph % (Auto) % [place] % (Auto) % Eos % (Auto) % Baso % (Auto) % Neut # (Auto) (1.4-6.5) K/uL Lymph # (Auto) (1.2-3.4) K/uL [place] # (Auto) (0.11-0.59) K/uL Eos # (Auto) (0-0.5) K/uL Baso # (Auto) (0-0.2) K/uL Immature Gran # (Auto) (0.00-0.02) K/uL PT (9.0-12.0) Seconds INR (0.9-1.1) Sodium (136-145) mmol/L Potassium (3.5-5.1) mmol/L Chloride (98-107) mmol/L Carbon Dioxide (21-32) mmol/L Anion Gap (3-11) BUN (7-18) mg/dl Creatinine (0.6-1.2) mg/dl Est Cr Clr Drug Dosing ml/min Est GFR ( Amer) Est GFR (Non-Af Amer) BUN/Creatinine Ratio (10-20) Glucose (70-99) mg/dl POC Glucose (70-99) mg/dl Osmolality 257 L (280-300) mOsm/kg Calcium (8.5-10.1) mg/dl Total Bilirubin (0.2-1) mg/dl AST (15-37) U/L ALT (12-78) U/L Alkaline Phosphatase (45-117) U/L Total Protein (6.4-8.2) gm/dl Albumin (3.4-5.0) gm/dl Globulin (2.5-4.0) gm/dl Albumin/Globulin Ratio (0.9-2) TSH (0.300-4.500) uIu/ml Urine Color Urine Appearance (Clear) Urine pH (4.5-7.5) Ur Specific [place] (1.000-1.030) Urine Protein (Negative) Urine Glucose (UA) (Negative) Urine Ketones (Negative) Urine Blood (Negative) Urine Nitrite (Negative) Urine Bilirubin (Negative) Urine Urobilinogen (Negative) Ur Leukocyte Esterase (Negative) Urine WBC (Auto) (0-5) /hpf Urine RBC (Auto) (0-4) /hpf U Hyaline Cast (Auto) (0-5) /lpf U Epithel Cells (Auto) (0-5) /lpf Urine Bacteria (Auto) (Negative) Urine Osmolality (500-800) mOsm/kg Ur Random Creatinine mg/dl Ur Random Sodium mmol/L Salicylates (2.8-20) mg/dl Urine Opiates Screen (Neg) Ur Methadone, Qual (Neg) Acetaminophen (10-30) ug/ml Urine Barbiturates (Neg) Ur Phencyclidine (PCP) (Neg) U Amphetamin/Meth Scrn (Neg) MDMA (Ecstasy) Screen (Neg) U Benzodiazepines Scrn (Neg) Ur Cocaine Metabolite (Neg) U Marijuana (THC) Screen (Neg) Ethyl Alcohol mg/dL (0-3) mg/dl COVID-19 Eval Order Covid19 IDNow atMMAC SARS-CoV-2, RNA, NAAT NEGATIVE (NEGATIVE) 05/20/20 05/20/20 05/20/20 Range/Units 16:26 16:26 16:26 WBC (4.8-10.8) K/uL RBC (4.2-5.4) M/uL Hgb (12.0-16.0) g/dL Hct (37-47) % MCV (80-100) fL MCH (25-34) pg MCHC (32-36) g/dL RDW Std Deviation (36.4-46.3) fL RDW Coeff of Gissel (11.5-14.5) % Plt Count (130-400) K/uL MPV (7.4-10.4) fL Immature Gran % (Auto) % Neut % (Auto) % Lymph % (Auto) % [place] % (Auto) % Eos % (Auto) % Baso % (Auto) % Neut # (Auto) (1.4-6.5) K/uL Lymph # (Auto) (1.2-3.4) K/uL [place] # (Auto) (0.11-0.59) K/uL Eos # (Auto) (0-0.5) K/uL Baso # (Auto) (0-0.2) K/uL Immature Gran # (Auto) (0.00-0.02) K/uL PT (9.0-12.0) Seconds INR (0.9-1.1) Sodium 122 L (136-145) mmol/L Potassium 4.1 (3.5-5.1) mmol/L Chloride 88 L (98-107) mmol/L Carbon Dioxide 25 (21-32) mmol/L Anion Gap 9.0 (3-11) BUN 12 (7-18) mg/dl Creatinine 0.77 (0.6-1.2) mg/dl Est Cr Clr Drug Dosing 46.9 ml/min Est GFR ( Amer) 90.0 Est GFR (Non-Af Amer) 77.7 BUN/Creatinine Ratio 15.9 (10-20) Glucose 166 H (70-99) mg/dl POC Glucose (70-99) mg/dl Osmolality (280-300) mOsm/kg Calcium 9.5 (8.5-10.1) mg/dl Total Bilirubin 0.4 (0.2-1) mg/dl AST 15 (15-37) U/L ALT 24 (12-78) U/L Alkaline Phosphatase 134 H (45-117) U/L Total Protein 7.7 (6.4-8.2) gm/dl Albumin 4.1 (3.4-5.0) gm/dl Globulin 3.6 (2.5-4.0) gm/dl Albumin/Globulin Ratio 1.1 (0.9-2) TSH 1.240 (0.300-4.500) uIu/ml Urine Color Urine Appearance (Clear) Urine pH (4.5-7.5) Ur Specific [place] (1.000-1.030) Urine Protein (Negative) Urine Glucose (UA) (Negative) Urine Ketones (Negative) Urine Blood (Negative) Urine Nitrite (Negative) Urine Bilirubin (Negative) Urine Urobilinogen (Negative) Ur Leukocyte Esterase (Negative) Urine WBC (Auto) (0-5) /hpf Urine RBC (Auto) (0-4) /hpf U Hyaline Cast (Auto) (0-5) /lpf U Epithel Cells (Auto) (0-5) /lpf Urine Bacteria (Auto) (Negative) Urine Osmolality (500-800) mOsm/kg Ur Random Creatinine mg/dl Ur Random Sodium mmol/L Salicylates 4.6 (2.8-20) mg/dl Urine Opiates Screen (Neg) Ur Methadone, Qual (Neg) Acetaminophen < 2 L (10-30) ug/ml Urine Barbiturates (Neg) Ur Phencyclidine (PCP) (Neg) U Amphetamin/Meth Scrn (Neg) MDMA (Ecstasy) Screen (Neg) U Benzodiazepines Scrn (Neg) Ur Cocaine Metabolite (Neg) U Marijuana (THC) Screen (Neg) Ethyl Alcohol mg/dL < 3.0 (0-3) mg/dl COVID-19 Eval Order SARS-CoV-2, RNA, NAAT (NEGATIVE) 05/20/20 Range/Units 16:26 WBC 7.59 (4.8-10.8) K/uL RBC 4.43 (4.2-5.4) M/uL Hgb 14.7 (12.0-16.0) g/dL Hct 40.1 (37-47) % MCV 90.5 (80-100) fL MCH 33.2 (25-34) pg MCHC 36.7 H (32-36) g/dL RDW Std Deviation 41.9 (36.4-46.3) fL RDW Coeff of Gissel 12.5 (11.5-14.5) % Plt Count 252 (130-400) K/uL MPV 10.1 (7.4-10.4) fL Immature Gran % (Auto) 0.3 % Neut % (Auto) 73.3 % Lymph % (Auto) 20.7 % [place] % (Auto) 5.0 % Eos % (Auto) 0.4 % Baso % (Auto) 0.3 % Neut # (Auto) 5.57 (1.4-6.5) K/uL Lymph # (Auto) 1.57 (1.2-3.4) K/uL [place] # (Auto) 0.38 (0.11-0.59) K/uL Eos # (Auto) 0.03 (0-0.5) K/uL Baso # (Auto) 0.02 (0-0.2) K/uL Immature Gran # (Auto) 0.02 (0.00-0.02) K/uL PT (9.0-12.0) Seconds INR (0.9-1.1) Sodium (136-145) mmol/L Potassium (3.5-5.1) mmol/L Chloride (98-107) mmol/L Carbon Dioxide (21-32) mmol/L Anion Gap (3-11) BUN (7-18) mg/dl Creatinine (0.6-1.2) mg/dl Est Cr Clr Drug Dosing ml/min Est GFR ( Amer) Est GFR (Non-Af Amer) BUN/Creatinine Ratio (10-20) Glucose (70-99) mg/dl POC Glucose (70-99) mg/dl Osmolality (280-300) mOsm/kg Calcium (8.5-10.1) mg/dl Total Bilirubin (0.2-1) mg/dl AST (15-37) U/L ALT (12-78) U/L Alkaline Phosphatase (45-117) U/L Total Protein (6.4-8.2) gm/dl Albumin (3.4-5.0) gm/dl Globulin (2.5-4.0) gm/dl Albumin/Globulin Ratio (0.9-2) TSH (0.300-4.500) uIu/ml Urine Color Urine Appearance (Clear) Urine pH (4.5-7.5) Ur Specific [place] (1.000-1.030) Urine Protein (Negative) Urine Glucose (UA) (Negative) Urine Ketones (Negative) Urine Blood (Negative) Urine Nitrite (Negative) Urine Bilirubin (Negative) Urine Urobilinogen (Negative) Ur Leukocyte Esterase (Negative) Urine WBC (Auto) (0-5) /hpf Urine RBC (Auto) (0-4) /hpf U Hyaline Cast (Auto) (0-5) /lpf U Epithel Cells (Auto) (0-5) /lpf Urine Bacteria (Auto) (Negative) Urine Osmolality (500-800) mOsm/kg Ur Random Creatinine mg/dl Ur Random Sodium mmol/L Salicylates (2.8-20) mg/dl Urine Opiates Screen (Neg) Ur Methadone, Qual (Neg) Acetaminophen (10-30) ug/ml Urine Barbiturates (Neg) Ur Phencyclidine (PCP) (Neg) U Amphetamin/Meth Scrn (Neg) MDMA (Ecstasy) Screen (Neg) U Benzodiazepines Scrn (Neg) Ur Cocaine Metabolite (Neg) U Marijuana (THC) Screen (Neg) Ethyl Alcohol mg/dL (0-3) mg/dl COVID-19 Eval Order SARS-CoV-2, RNA, NAAT (NEGATIVE) PG Care Time/CCT Total # of Minutes Spent Total Time Spent with Patient: Total time spent is greater than 50% in coordination of care (as documented) at patient's floor/unit and/or counseling patient: Coding Level of Care Code 81243 Subseq Hosp Care Lvl 2 Diagnoses Acute UTI (urinary tract infection) N39.0 Right leg swelling M79.89 Wound of foot S91.309A Acute hyponatremia E87.1
[2020-05-21] MEDS: ENOXAPARIN INJ 40 MG/0.4 ML SYR SQ SCH (09:12)
--- NOTE | 2020-05-21 09:39 | Electrocardiogram Report ---
Test Reason : Blood Pressure : / mmHG Vent. Rate : 099 BPM Atrial Rate : 099 BPM P-R Int : 156 ms QRS Dur : 080 ms QT Int : 354 ms P-R-T Axes : 076 053 074 degrees QTc Int : 454 ms Normal sinus rhythm Biatrial enlargement Abnormal ECG When compared with ECG of 13-DEC-2003 10:14, No significant change was found Confirmed by Antoni Vasquez ([id number]) on 05/21/2020 9:38:55 AM Referred By: REFERRED SELF Confirmed By:Antoni Vasquez
[2020-05-21] MEDS: SODIUM CHLORIDE 0.9% 1000ML 1,000 ML IV SCH (14:09)
[2020-05-21] MEDS ORDERED: cefTRIAXone SODIUM 1,000 MG in DEXTROSE 5% 50 ML IV SCH (20:00)
[2020-05-21] MEDS: SIMVASTATIN 40 MG TAB PO SCH (20:50)
[2020-05-21] MEDS: QUEtiapine FUMARATE 100 MG TABLET PO SCH (20:50)
[2020-05-22 06:27] LABS: Basophils # (auto) 0.02 K/uL (0-0.2); Basophils % (auto) 0.4 %; Eosinophils # (auto) 0.11 K/uL (0-0.5); Eosinophils % (auto) 2.3 %; Hematocrit (blood only) 40.3 % (37-47); Immature Granulocytes # (auto) 0.01 K/uL (0.00-0.02); Immature Granulocytes % (auto) 0.2 %; Lymphocytes # (auto) 2.06 K/uL (1.2-3.4); Lymphocytes % (auto) 43.6 %; Mean Corpuscular Hemoglobin 32.1 pg (25-34); Mean Corpuscular Hgb Conc 34.7 g/dL (32-36); Mean Corpuscular Volume 92.4 fL (80-100); Mean Platelet Volume 10.3 fL (7.4-10.4); Monocytes # (auto) 0.41 K/uL (0.11-0.59); Monocytes % (auto) 8.7 %; Neutrophils # (auto) 2.12 K/uL (1.4-6.5); Neutrophils % (auto) 44.8 %; Platelet Count 244 K/uL (130-400); RDW Coefficient of Variation 13.2 % (11.5-14.5); RDW Standard Deviation 44.7 fL (36.4-46.3); Red Blood Count 4.36 M/uL (4.2-5.4); White Blood Count 4.73 K/uL (4.8-10.8)
[2020-05-22 07:03] LABS: Estimated Average Glucose 183 mg/dl
[2020-05-22 07:13] LABS: Albumin Globulin Ratio 1.1 (0.9-2); Albumin Level 3.4 gm/dl (3.4-5.0); BUN Creatinine Ratio 22.4 (10-20); Bilirubin,Total 0.3 mg/dl (0.2-1); Calcium 8.9 mg/dl (8.5-10.1); Creatinine Clr Calc Pharmacy 46.3 ml/min; Est GFR (African American) 88.6; Est GFR (Non-African American) 76.5; Globulin 3.1 gm/dl (2.5-4.0); Potassium 3.9 mmol/L (3.5-5.1); Total Protein 6.5 gm/dl (6.4-8.2)
[2020-05-22] MEDS: CITALOPRAM 20 MG TAB PO SCH (08:55)
[2020-05-22] MEDS: QUEtiapine FUMARATE 200 MG TAB PO SCH (08:55)
[2020-05-22] MEDS: SITagliptin PHOSPHATE 100 MG TAB PO SCH (08:56)
[2020-05-22] MEDS: METOPROLOL TARTRATE 25 MG TAB PO SCH (08:56)
[2020-05-22] MEDS: haloperidoL 5 MG TAB PO SCH (08:56)
[2020-05-22] MEDS: lisinopril 10 MG TAB PO SCH (08:56)
[2020-05-22] MEDS: ENOXAPARIN INJ 40 MG/0.4 ML SYR SQ SCH (08:57)
--- NOTE | 2020-05-22 09:55 | Hospitalist Progress Note ---
Date of Service May 22, 2020 Assessment & Plan Admission and Anticipated Discharge Date Admission Date: May 20, 2020 Results & Data Results & Data ([facility]) Vital Signs (Past 12 Hours) Vital Signs Temp Pulse Resp BP BP Pulse Ox 05/22/20 07:15 36.7 C 106 H 16 145/67 H 93 05/21/20 23:50 36.7 C 80 14 138/68 95 Laboratory Results 05/22/20 05/22/20 05/22/20 Range/Units 08:12 05:36 05:36 WBC 4.73 L (4.8-10.8) K/uL RBC 4.36 (4.2-5.4) M/uL Hgb 14.0 (12.0-16.0) g/dL Hct 40.3 (37-47) % MCV 92.4 (80-100) fL MCH 32.1 (25-34) pg MCHC 34.7 (32-36) g/dL RDW Std Deviation 44.7 (36.4-46.3) fL RDW Coeff of Gissel 13.2 (11.5-14.5) % Plt Count 244 (130-400) K/uL MPV 10.3 (7.4-10.4) fL Immature Gran % (Auto) 0.2 % Neut % (Auto) 44.8 % Lymph % (Auto) 43.6 % [place] % (Auto) 8.7 % Eos % (Auto) 2.3 % Baso % (Auto) 0.4 % Neut # (Auto) 2.12 (1.4-6.5) K/uL Lymph # (Auto) 2.06 (1.2-3.4) K/uL [place] # (Auto) 0.41 (0.11-0.59) K/uL Eos # (Auto) 0.11 (0-0.5) K/uL Baso # (Auto) 0.02 (0-0.2) K/uL Immature Gran # (Auto) 0.01 (0.00-0.02) K/uL Sodium 136 D (136-145) mmol/L Potassium 3.9 (3.5-5.1) mmol/L Chloride 105 (98-107) mmol/L Carbon Dioxide 25 (21-32) mmol/L Anion Gap 6.0 (3-11) BUN 18 D (7-18) mg/dl Creatinine 0.78 (0.6-1.2) mg/dl Est Cr Clr Drug Dosing 46.3 ml/min Est GFR ( Amer) 88.6 Est GFR (Non-Af Amer) 76.5 BUN/Creatinine Ratio 22.4 H (10-20) Glucose 157 H (70-99) mg/dl POC Glucose 170 H (70-99) mg/dl Estimat Average Glucose mg/dl Hemoglobin A1c (4.5-5.6) % Calcium 8.9 (8.5-10.1) mg/dl Total Bilirubin 0.3 (0.2-1) mg/dl AST 11 L (15-37) U/L ALT 23 (12-78) U/L Alkaline Phosphatase 108 (45-117) U/L Total Protein 6.5 (6.4-8.2) gm/dl Albumin 3.4 (3.4-5.0) gm/dl Globulin 3.1 (2.5-4.0) gm/dl Albumin/Globulin Ratio 1.1 (0.9-2) 05/22/20 05/21/20 05/21/20 Range/Units 05:36 20:44 17:12 WBC (4.8-10.8) K/uL RBC (4.2-5.4) M/uL Hgb (12.0-16.0) g/dL Hct (37-47) % MCV (80-100) fL MCH (25-34) pg MCHC (32-36) g/dL RDW Std Deviation (36.4-46.3) fL RDW Coeff of Gissel (11.5-14.5) % Plt Count (130-400) K/uL MPV (7.4-10.4) fL Immature Gran % (Auto) % Neut % (Auto) % Lymph % (Auto) % [place] % (Auto) % Eos % (Auto) % Baso % (Auto) % Neut # (Auto) (1.4-6.5) K/uL Lymph # (Auto) (1.2-3.4) K/uL [place] # (Auto) (0.11-0.59) K/uL Eos # (Auto) (0-0.5) K/uL Baso # (Auto) (0-0.2) K/uL Immature Gran # (Auto) (0.00-0.02) K/uL Sodium (136-145) mmol/L Potassium (3.5-5.1) mmol/L Chloride (98-107) mmol/L Carbon Dioxide (21-32) mmol/L Anion Gap (3-11) BUN (7-18) mg/dl Creatinine (0.6-1.2) mg/dl Est Cr Clr Drug Dosing ml/min Est GFR ( Amer) Est GFR (Non-Af Amer) BUN/Creatinine Ratio (10-20) Glucose (70-99) mg/dl POC Glucose 105 H 142 H (70-99) mg/dl Estimat Average Glucose 183 mg/dl Hemoglobin A1c 8.0 H (4.5-5.6) % Calcium (8.5-10.1) mg/dl Total Bilirubin (0.2-1) mg/dl AST (15-37) U/L ALT (12-78) U/L Alkaline Phosphatase (45-117) U/L Total Protein (6.4-8.2) gm/dl Albumin (3.4-5.0) gm/dl Globulin (2.5-4.0) gm/dl Albumin/Globulin Ratio (0.9-2) 05/21/20 Range/Units 11:58 WBC (4.8-10.8) K/uL RBC (4.2-5.4) M/uL Hgb (12.0-16.0) g/dL Hct (37-47) % MCV (80-100) fL MCH (25-34) pg MCHC (32-36) g/dL RDW Std Deviation (36.4-46.3) fL RDW Coeff of Gissel (11.5-14.5) % Plt Count (130-400) K/uL MPV (7.4-10.4) fL Immature Gran % (Auto) % Neut % (Auto) % Lymph % (Auto) % [place] % (Auto) % Eos % (Auto) % Baso % (Auto) % Neut # (Auto) (1.4-6.5) K/uL Lymph # (Auto) (1.2-3.4) K/uL [place] # (Auto) (0.11-0.59) K/uL Eos # (Auto) (0-0.5) K/uL Baso # (Auto) (0-0.2) K/uL Immature Gran # (Auto) (0.00-0.02) K/uL Sodium (136-145) mmol/L Potassium (3.5-5.1) mmol/L Chloride (98-107) mmol/L Carbon Dioxide (21-32) mmol/L Anion Gap (3-11) BUN (7-18) mg/dl Creatinine (0.6-1.2) mg/dl Est Cr Clr Drug Dosing ml/min Est GFR ( Amer) Est GFR (Non-Af Amer) BUN/Creatinine Ratio (10-20) Glucose (70-99) mg/dl POC Glucose 136 H (70-99) mg/dl Estimat Average Glucose mg/dl Hemoglobin A1c (4.5-5.6) % Calcium (8.5-10.1) mg/dl Total Bilirubin (0.2-1) mg/dl AST (15-37) U/L ALT (12-78) U/L Alkaline Phosphatase (45-117) U/L Total Protein (6.4-8.2) gm/dl Albumin (3.4-5.0) gm/dl Globulin (2.5-4.0) gm/dl Albumin/Globulin Ratio (0.9-2) PG Care Time/CCT Total # of Minutes Spent Total Time Spent with Patient: Total time spent is greater than 50% in coordination of care (as documented) at patient's floor/unit and/or counseling patient: Coding
[2020-05-22] MEDS: INSULIN ASPART 100 UNITS/ML 3 ML PEN SC SCH (10:05)
--- NOTE | 2020-05-22 11:33 | Discharge Summary ---
Date of Service May 22, 2020 Admission HPI Per Admitting Provider This is a 70-year-old female who came to the emergency department due to reported paranoia. Patient became anxious and irritable with her family and therefore stopped taking her medications as prescribed. At the time of my interview she denied the desire to harm herself or others. Evaluation in the emergency department consisted of labs were CBC revealed white blood cell count, hemoglobin and hematocrit, and platelet count all within normal range. She did have a chemistry profile where her sodium was markedly low at 122. Potassium, BUN, and creatinine were all noted to be within normal range. Serum osmolality was noted to be 257. Urine osmolality was noted to be 229. There is also concern for urinary tract infection on her urinalysis. Chest x-ray was negative for pneumonia. In addition she underwent a CT scan of her head that showed no acute intracranial abnormalities. Did question patient on multiple things she denies any headache blurred or double vision. She denies cough or shortness of breath. She notes she has been afebrile. She claims to have been taking her medications as prescribed. I did question her about fluid intake and she estimated that she drinks nearly 6 L of water per day. She was unsure of how long she has been doing this. To the best of her knowledge she has never suffered a seizure. She does report some nonpainful swelling of her right lower extremity. In addition she has a blister on her right foot at the base of her first metatarsal. At the time of my interview she was resting comfortably at bedside and she was in no distress. Admission Exam Per Admitting Provider Constitutional: well developed and well nourished; no acute distress Eyes: no conjunctival abnormality Wears glasses ENMT: Ears: no hearing impairment Mucous membranes are moist Neck: trachea midline Respiratory: normal respiratory effort, lungs clear to auscultation Cardiovascular: Rate/Rhythm: regular rate and regular rhythm Gastrointestinal (Abdomen): Percussion/Palpation: abdomen soft; abdomen nontender Musculoskeletal: No calf tenderness. Patient had notable swelling of the right lower extremity. There is no pain. Patient had approximately 2 mm x 2 mm lesion at the base of the first metatarsal. There is a scab over this lesion. There is no malodorous discharge. No crepitus was noted in the soft tissue. Skin: no rashes, warm and dry Neurologic: CN's II-XI intact bilaterally and moves all extremities Psychiatric: A+Ox3, euthymic affect Principal Diagnosis UTI, Hyponatremia Discharge Exam Constitutional well developed and well nourished; no acute distress Eyes no conjunctival abnormality ENMT Ears: no hearing impairment Neck trachea midline Respiratory normal respiratory effort, lungs clear to auscultation Cardiovascular Rate/Rhythm: regular rate and regular rhythm Extremities: + edema (L>R, non-tender, non-pitting) Gastrointestinal (Abdomen) Percussion/Palpation: abdomen soft; abdomen nontender Musculoskeletal no cyanosis or clubbing, extremities motor strength 5/5 Skin no rashes, warm and dry Neurologic CN's II-XI intact bilaterally and moves all extremities Psychiatric A+Ox3, euthymic affect Lymphatic no cervical or axillary lymphadenopathy Discharge Data Allergies Allergy/AdvReac Type Severity Reaction Status Date / Time PCN Allergy Unknown Uncoded 06/23/02 15:11 SULFA Allergy Unknown Uncoded 12/13/03 10:02 X-RAY DYE Allergy Unknown Uncoded 06/23/02 15:11 Consultations 05/20/20 18:00 ED Decision to Admit Stat Ordered Studies 05/20/20 16:10 CT head/brain wo con Stat CXR 05/20/20 19:54 US venous doppler LE Urgent Hospital Course (1) Acute UTI (urinary tract infection): Admitted with metabolic encephalopathy secondary to Ecoli UTI and hyponatremia from polydipsia. * Ceftriaxone IV with transition to PO * Urine culture with ecoli with resistance, although sensistive to Cipro -- sent with additional 3 days to complete treatment * Supportive care with IVF, antiemetics * PT/OT with rec for return home -- lives in senior apartment complex and discussed with daughter (providing transportation) * Fluid restriction for polydipsia with consumption reported 6L/day with confusion and hyponatremia on admission with sodium 122. Corrected over 48 hours and resolved prior to discharge with Na 136. Discussed fluid restriction 1500ml/day to be continued at discharge. Ecoli - sent with Cipro (2) Right leg swelling: * She denied any trauma to this extremity, although did report falls * Dopplers NEGATIVE for DVT * At baseline -- no pain reported today . did not require medication outside of tylenol * Pt/ot as above (3) Wound of foot: * Wound RN consulted (4) Acute hyponatremia: * Dates of the patient's history and her hyponatremia may be from excessive water consumption as well as SSRI * Urine studies c/w excessive free water intake * fluid restrict her to 1.5 L daily as above -- continue at d/c * TSH 1.240 * Serial labs with improvement of Na from 122 to 136 prior to discharge Diabetes Mellitus II * A1c 8.0 -- only on Januvia as outpatient. Discussed with patient and initiated metformin 500mg daily and should have follow up with PCP for further titration --> per discussion with daughter, they have been trying to switch PCP to Sanchez in July -- asked unit secretary to arrange sooner appointment to establish care. Appointment made for May 29. * BSGs acceptable while inpatient Essential Hypertension * BP acceptable, prior to discharge 145/67 * Continued home lisinopril 10mg, metoprolol 25mg daily Anxiety/Depression/Thought Disorder * Stable -- exacerbation of confusion on admission secondary to infection and hyponatremia * Continued citalopram, haloperidol, seroquel * Consider SSRI contributing to hyponatremia as well -- further discuss with PCP at f/u DVT Prophylaxis * Lovenox while inpatient Full Code Discharged back to [facility] with daughter for transportation. Did update daughter prior to discharge on hospitalization. Total Time Total Time Spent Total Time Spent (In Minutes): 70 Discharge Plan Discharge Items Patient Disposition: Home - Self-Care Reason For Visit: HYPONATREMIA Discharge Diagnosis: UTI, Hyponatremia Goals: You have been hospitalized for an acute medical problem. During your stay at [facility], we have made an effort to correct the problem that brought you to the hospital while keeping you as comfortable as possible. Medications were used to bring your condition under control and your discharge instructions will include directions for any medications you should take after leaving the hospital. Please make sure you see your Primary Care Provider as part of your follow up plan. Activity: Resume your previous activity Non-emergency contact: Primary Care Provider Call non-emergency contact if: you have any medication questions and your symptoms worsen Follow-up/Referrals: Antelmo Hill MD [Outside Practitioners] - 05/29/20 11:00 am Diet: Carb Consistent or DM2 and Heart Healthy Fluids: 1500ml (6 cups) Addtl Attending Provider Instructions: You have been hospitalized and found to have a UTI and low sodium level. Low sodium level felt to be related to excess water intake and have improved on a fluid restriction. You should continue to limit your fluid intake to 1500mL/day (6 cups) to prevent issues in the future. This can cause some confusion and weakness, but you were also found to have a urinary tract infection. You were treated with antibiotics and are being sent home with a prescription for an additional 3 days of Ciprofloxacin 500mg daily. Your A1c was checked for your diabetes and was found to be above goal range. You have been started on 500mg metformin daily and should follow up with primary care in the next 1-2 weeks to monitor your progress since discharge from the hospital and then have follow-up with repeat A1c in three months to see if you need any further adjustments. Please return to the emergency department with any worsening confusion, weakness, chest pain, shortness of breath or for any other symptoms that are concerning for you. It has been a pleasure being a part of the medical team providing for you while you have been in the hospital. Take care! Pending Studies at Discharge: No Stand-Alone Forms: My [facility] Medications and DC Order Prescriptions: New metformin [Glucophage XR] 500 mg tablet extended release 24 hr 500 mg PO DAILY Qty: 30 RF: 0 ciprofloxacin HCl 500 mg tablet 500 mg PO DAILY Qty: 3 RF: 0 Continued haloperidol 5 mg Tablet 5 mg PO DAILY RF: 0 quetiapine [Seroquel] 100 mg Tablet 100 mg PO HS RF: 0 simvastatin 40 mg Tablet 40 mg PO PM RF: 0 citalopram 20 mg Tablet 20 mg PO DAILY RF: 0 lisinopril 10 mg Tablet 10 mg PO DAILY RF: 0 metoprolol tartrate 25 mg Tablet 25 mg PO DAILY RF: 0 quetiapine [Seroquel] 400 mg Tablet 400 mg PO DAILY RF: 0 Januvia 100 mg Tablet 100 mg PO DAILY RF: 0 Discontinued nitrofurantoin 100 mg Capsule 100 mg PO DAILY RF: 0 Discharge Orders: Discharge Order (Routine); Ordered 05/22/20 Ordered By: Jada Wiley/Other Patient Handouts: High Blood Sugar (Hyperglycemia), Hypoglycemia (Low Blood Sugar), Managing Type 2 Diabetes Admission Data Admit Date/Time: 05/20/20 19:56 Attending Provider: Juanjose Todd Admit Provider: Kenneth Sales Primary Care Provider: PCP,NO Other Providers: Kenneth Sales Other Interventions: Discharge Summary Assessment (RN) Last Done: 05/22/20 11:53 Coding Level of Care Code D/C Day Management >30 mins Diagnoses Acute UTI (urinary tract infection) N39.0 Right leg swelling M79.89 Wound of foot S91.309A Acute hyponatremia E87.1
== END 2020-05-22 13:17 | disposition home or self-care (01) | DRG 689 ==
LOC: ED 16:00 → SUATTDRO 19:56 → 3N 19:56

== ENCOUNTER 2020-05-24 13:01 | Inpatient (IN) ==
[2020-05-24 13:54] LABS: Appearance Urine Clear (Clear); Bilirubin Urine Negative (Negative); Blood Urine Negative (Negative); Color Urine Yellow; Glucose Urine UA Negative (Negative); Ketones Urine Negative (Negative); Leukocyte Esterase Urine Negative (Negative); Nitrite Urine Negative (Negative); Protein Urine Negative (Negative); Urobilinogen Urine Negative (Negative); pH Urine 6.5 (4.5-7.5)
--- NOTE | 2020-05-24 14:00 | Emergency Department Note ---
Impression & Plan Thought disorder ED Provider Note INFORMANT: Patient, daughter ED PROVIDER(S): Noble Syed MD CHIEF COMPLAINT: PLAN: Disposition: Admitted to 3 S. Condition: Good Outpatient prescription management: none Referral: None MEDICAL DECISION MAKING: Patient presented back to the emergency department because of paranoia and inability to function. She has a history of thought disorder. The patient also was recently admitted for acute electrolyte issues as well as UTI. She is on a ntibiotics. Blood work was obtained. She had an unremarkable CBC and chemistry panel. Hyponatremia resolved. Urinalysis does not show any sign of infection. Drug screen unremarkable. The patient was voluntary for admission. She was evaluated by the case making machine operator and referral made to 3 S. Patient was evaluated and admitted for further management. Triage Nursing notes reviewed and agree them. Additional history obtained from patient's daughter Prior medical records reviewed regarding inpatient treatment and culture results. Vital Signs: reviewed and remarkable for no significant abnormalities Differential diagnosis: Mood disorder, infection, hypoglycemia, electrolyte abnormalities, cardiac sources, intracerebral event, toxicologic, trauma, neurologic, as well as other pathologies. Diagnostics interpreted by me: ECG: none Cardiac Monitoring: none Imaging studies: Deferred Consultation(s): 3 S. mental health HPI: The patient is a 70 year old female with a history of anxiety and psychosis and recent admission for hyponatremia and UTI who presents to the Emergency Room with complaints of mental health evaluation. The patient's daughter is present and helps with the history. The patient had her metabolic issues corrected in the hospital and was discharged to follow-up as an outpatient. She was discharged the day before yesterday. She was very paranoid again when she was home. It was very difficult for her to take her medications. Family did give her medications yesterday and with a lot of effort again today. The daughter is very concerned that she is going downhill despite correction of the medical issues and is worried. The patient does have a history of prolonged hospital stay at [facility] for psychosis in the past. Pt denies LOC, headache, fevers, chills, diaphoresis, visual changes, neck pain, chest pain, breathing di fficulties, nausea, vomiting, abdominal pain, back pain, melena, hematochezia, urinary symptoms, numbness, weakness, lymphadenopathy, rash, or other complaints. ROS: See above HPI for pertinent positives & negatives. A total of 10 systems reviewed and were otherwise negative. PAST MEDICAL HISTORY:See Below , UTI, Psychosis, paranoia PAST SURGICAL HISTORY:See Below, FAMILY HISTORY:See Below SOCIAL HISTORY:See Below, Lives with family HOME MEDICATIONS:See Below ALLERGIES:See Below VITALS:[See Below] PHYSICAL EXAMINATION: GENERAL: Awake, alert, well-appearing, in no distress HENT: Normocephalic, atraumatic. Oropharynx unremarkable. EYES: Normal conjunctiva. Sclera non-icteric. PERR, EOMI NECK: Inspection normal. Non-tender. Supple. No nuchal rigidity. FROM. No masses. RESPIRATORY: Clear to auscultation. No wheezes. No rales. Normal respiratory effort. CARDIAC: Normal rate. Normal rhythm. Holosystolic murmur. No rubs. Extremities warm and well perfused. Pulses equal. No JVD. GI: Soft, non-distended. No tenderness to palpation. No rebound or guarding. No masses. RECTAL: Deferred. MUSCULOSKELETAL: Atraumatic. Chest examination reveals no tenderness. The back is symmetrical on inspection without obvious abnormality. There is no CVA tenderness to palpation. No joint edema. LOWER EXTREMITIES: Calves are equal size bilaterally and non-tender. No edema. No discoloration. NEURO: Normal sensorium. No sensory or motor deficits noted. SKIN: No rash or jaundice noted. PSYCH: Cooperative. Flat affect. Paranoid. No SI or HI. Insight and judgment impaired. Noble Syed MD Past Med/Surg History Social History Smoking Status: Current every day smoker Cigarettes Per Day: "I dont know"; Hx Alcohol Use: No Hx Substance Use: No Preferred Language: Icelandic Communication Ability: Effective Oracle Brm Developer Required: No Beliefs That Will Affect Care: None marital status: Current Living Situation: Alone Feels Safe at Home: Yes Assistive Devices: Cane Allergies Allergies Allergy/AdvReac Type Severity Reaction Status Date / Time Iodinated Contrast Media Allergy Unknown Verified 05/25/20 09:00 Penicillins Allergy Unknown Verified 05/25/20 09:00 Sulfa (Sulfonamide Allergy Unknown Verified 05/25/20 09:00 Antibiotics) Home Meds Home Medications Medication Instructions Recorded Confirmed Januvia 100 mg PO DAILY 05/20/20 05/24/20 citalopram 20 mg PO DAILY 05/20/20 05/24/20 haloperidol 5 mg PO DAILY 05/20/20 05/24/20 lisinopril 10 mg PO DAILY 05/20/20 05/24/20 metoprolol tartrate 25 mg PO DAILY 05/20/20 05/24/20 quetiapine [Seroquel] 100 mg PO HS 05/20/20 05/24/20 quetiapine [Seroquel] 400 mg PO DAILY 05/20/20 05/24/20 simvastatin 40 mg PO PM 05/20/20 05/24/20 nitrofurantoin 100 mg PO DAILY 05/24/20 05/24/20 Previous Rx's Medication Instructions Recorded ciprofloxacin HCl 500 mg PO DAILY #3 tab 05/22/20 metformin [Glucophage XR] 500 mg PO DAILY #30 tab 05/22/20 Results & Data (ED) Vital Signs Vital Signs - 24 hr 05/24/20 13:06 05/24/20 18:00 Temperature 36.6 C Temperature Source Temporal Artery Scan Pulse Rate 82 Pulse Rate [Finger] 70 Respiratory Rate 20 17 Respiratory Effort / Characteristics Non-Labored Respiratory Depth Normal Blood Pressure 128/84 Blood Pressure [Left Arm] 125/79 Blood Pressure Mean 98 Blood Pressure Mean [Left Arm] 94 Pulse Oximetry 96 98 Oxygen Delivery Method Room Air Room Air Sepsis Recent Fever Within 48 Hours No Sepsis New/Unexplained Change in Mental Status N/A Sepsis Action Taken by Nursing No Action Required Laboratory Data Result diagrams: 05/24/20 13:45 05/24/20 13:45 Lab Results 05/24/20 05/24/20 05/24/20 Range/Units 13:40 13:40 13:45 WBC 4.85 (4.8-10.8) K/uL RBC 4.18 L (4.2-5.4) M/uL Hgb 13.8 (12.0-16.0) g/dL Hct 38.9 (37-47) % MCV 93.1 (80-100) fL MCH 33.0 (25-34) pg MCHC 35.5 (32-36) g/dL RDW Std Deviation 45.7 (36.4-46.3) fL RDW Coeff of Gissel 13.4 (11.5-14.5) % Plt Count 232 (130-400) K/uL MPV 10.0 (7.4-10.4) fL Immature Gran % (Auto) 0.2 % Neut % (Auto) 47.0 % Lymph % (Auto) 42.1 % Grainger % (Auto) 7.4 % Eos % (Auto) 2.5 % Baso % (Auto) 0.8 % Neut # (Auto) 2.28 (1.4-6.5) K/uL Lymph # (Auto) 2.04 (1.2-3.4) K/uL Grainger # (Auto) 0.36 (0.11-0.59) K/uL Eos # (Auto) 0.12 (0-0.5) K/uL Baso # (Auto) 0.04 (0-0.2) K/uL Immature Gran # (Auto) 0.01 (0.00-0.02) K/uL Sodium (136-145) mmol/L Potassium (3.5-5.1) mmol/L Chloride (98-107) mmol/L Carbon Dioxide (21-32) mmol/L Anion Gap (3-11) BUN (7-18) mg/dl Creatinine (0.6-1.2) mg/dl Est Cr Clr Drug Dosing ml/min Est GFR ( Amer) Est GFR (Non-Af Amer) BUN/Creatinine Ratio (10-20) Glucose (70-99) mg/dl Calcium (8.5-10.1) mg/dl Total Bilirubin (0.2-1) mg/dl AST (15-37) U/L ALT (12-78) U/L Alkaline Phosphatase (45-117) U/L Total Protein (6.4-8.2) gm/dl Albumin (3.4-5.0) gm/dl Globulin (2.5-4.0) gm/dl Albumin/Globulin Ratio (0.9-2) TSH (0.300-4.500) uIu/ml Urine Color Yellow Urine Appearance Clear (Clear) Urine pH 6.5 (4.5-7.5) Ur Specific Roebuck 1.010 (1.000-1.030) Urine Protein Negative (Negative) Urine Glucose (UA) Negative (Negative) Urine Ketones Negative (Negative) Urine Blood Negative (Negative) Urine Nitrite Negative (Negative) Urine Bilirubin Negative (Negative) Urine Urobilinogen Negative (Negative) Ur Leukocyte Esterase Negative (Negative) Salicylates (2.8-20) mg/dl Urine Opiates Screen Neg (Neg) Ur Methadone, Qual Neg (Neg) Acetaminophen (10-30) ug/ml Urine Barbiturates Neg (Neg) Ur Phencyclidine (PCP) Neg (Neg) U Amphetamin/Meth Scrn Neg (Neg) MDMA (Ecstasy) Screen Neg (Neg) U Benzodiazepines Scrn Neg (Neg) Ur Cocaine Metabolite Neg (Neg) U Marijuana (THC) Screen Neg (Neg) Ethyl Alcohol mg/dL (0-3) mg/dl 05/24/20 05/24/20 05/24/20 Range/Units 13:45 13:45 13:45 WBC (4.8-10.8) K/uL RBC (4.2-5.4) M/uL Hgb (12.0-16.0) g/dL Hct (37-47) % MCV (80-100) fL MCH (25-34) pg MCHC (32-36) g/dL RDW Std Deviation (36.4-46.3) fL RDW Coeff of Gissel (11.5-14.5) % Plt Count (130-400) K/uL MPV (7.4-10.4) fL Immature Gran % (Auto) % Neut % (Auto) % Lymph % (Auto) % Grainger % (Auto) % Eos % (Auto) % Baso % (Auto) % Neut # (Auto) (1.4-6.5) K/uL Lymph # (Auto) (1.2-3.4) K/uL Grainger # (Auto) (0.11-0.59) K/uL Eos # (Auto) (0-0.5) K/uL Baso # (Auto) (0-0.2) K/uL Immature Gran # (Auto) (0.00-0.02) K/uL Sodium 135 L (136-145) mmol/L Potassium 4.0 (3.5-5.1) mmol/L Chloride 102 (98-107) mmol/L Carbon Dioxide 30 (21-32) mmol/L Anion Gap 3.0 (3-11) BUN 16 (7-18) mg/dl Creatinine 0.82 (0.6-1.2) mg/dl Est Cr Clr Drug Dosing 44.5 ml/min Est GFR ( Amer) 83.4 Est GFR (Non-Af Amer) 72.0 BUN/Creatinine Ratio 19.9 (10-20) Glucose 134 H (70-99) mg/dl Calcium 9.0 (8.5-10.1) mg/dl Total Bilirubin 0.2 (0.2-1) mg/dl AST 11 L (15-37) U/L ALT 29 (12-78) U/L Alkaline Phosphatase 114 (45-117) U/L Total Protein 7.3 (6.4-8.2) gm/dl Albumin 3.8 (3.4-5.0) gm/dl Globulin 3.5 (2.5-4.0) gm/dl Albumin/Globulin Ratio 1.1 (0.9-2) TSH 1.450 (0.300-4.500) uIu/ml Urine Color Urine Appearance (Clear) Urine pH (4.5-7.5) Ur Specific Roebuck (1.000-1.030) Urine Protein (Negative) Urine Glucose (UA) (Negative) Urine Ketones (Negative) Urine Blood (Negative) Urine Nitrite (Negative) Urine Bilirubin (Negative) Urine Urobilinogen (Negative) Ur Leukocyte Esterase (Negative) Salicylates 3.6 (2.8-20) mg/dl Urine Opiates Screen (Neg) Ur Methadone, Qual (Neg) Acetaminophen < 2 L (10-30) ug/ml Urine Barbiturates (Neg) Ur Phencyclidine (PCP) (Neg) U Amphetamin/Meth Scrn (Neg) MDMA (Ecstasy) Screen (Neg) U Benzodiazepines Scrn (Neg) Ur Cocaine Metabolite (Neg) U Marijuana (THC) Screen (Neg) Ethyl Alcohol mg/dL < 3.0 (0-3) mg/dl Administered Medications Citalopram Hydrobromide (Citalopram 20 Mg Tab) 20 mg PO DAILY [facility] Stop: 06/24/20 08:59 Last Admin: 05/25/20 09:08 Dose: 20 mg Documented by: [id number] Haloperidol (Haloperidol 5 Mg Tab) 5 mg PO DAILY [facility] Stop: 06/24/20 08:59 Last Admin: 05/25/20 09:08 Dose: 5 mg Documented by: [id number] Lisinopril (Lisinopril 10 Mg Tab) 10 mg PO DAILY [facility] Stop: 06/24/20 08:59 Last Admin: 05/25/20 09:09 Dose: 10 mg Documented by: [id number] Metformin HCl (Metformin Hcl Er 500 Mg Tabcr) 500 mg PO QDB [facility] Stop: 06/24/20 08:59 Last Admin: 05/25/20 09:08 Dose: 500 mg Documented by: [id number] Metoprolol Tartrate (Metoprolol Tartrate 25 Mg Tab) 25 mg PO DAILY [facility] Stop: 06/24/20 08:59 Last Admin: 05/25/20 09:09 Dose: 25 mg Documented by: [id number] Miscellaneous (Remove Nicoderm Patch) 1 ea N/A DAILY@0859 [facility] Stop: 06/24/20 08:58 Last Admin: 05/25/20 09:29 Dose: Not Given Documented by: [id number] Nicotine (Nicotine 21 Mg/24 Hr Tdsy) 21 mg TD QAM [facility] Stop: 06/24/20 08:59 Last Admin: 05/25/20 09:30 Dose: 21 mg Documented by: [id number] Nitrofurantoin Macrocrystals (Nitrofurantoin Monohydrate 100 Mg Cap) 100 mg PO DAILY [facility] Stop: 05/30/20 08:59 Last Admin: 05/25/20 09:09 Dose: 100 mg Documented by: [id number] Quetiapine Fumarate (Quetiapine Fumarate 100 Mg Tablet) 100 mg PO HS [facility] Stop: 06/23/20 20:59 Last Admin: 05/24/20 21:17 Dose: 100 mg Documented by: [id number] Quetiapine Fumarate (Quetiapine Fumarate 200 Mg Tab) 400 mg PO DAILY [facility] Stop: 06/24/20 08:59 Last Admin: 05/25/20 09:09 Dose: 400 mg Documented by: [id number] Simvastatin (Simvastatin 40 Mg Tab) 40 mg PO PM [facility] Stop: 06/23/20 20:59 Last Admin: 05/24/20 21:17 Dose: 40 mg Documented by: [id number] Sitagliptin Phosphate (Sitagliptin Phosphate 100 Mg Tab) 100 mg PO DAILY [facility] Stop: 06/24/20 08:59 Last Admin: 05/25/20 09:08 Dose: 100 mg Documented by: [id number] Discontinued Medications Ciprofloxacin (Ciprofloxacin 500 Mg Tab) 500 mg PO DAILY [facility] Stop: 05/30/20 08:59 Last Admin: 05/25/20 09:08 Dose: 500 mg Documented by: [id number] Discharge Plan Visit Data Chief Complaint: Mental Health Evaluation Stated Complaint: MENTAL HEALTH EVAL D/C TUE ED Provider: Noble Syed Discharge Problem: Thought disorder Patient Disposition: Home - Self-Care Discharge Instructions Interventions: ED Discharge Assessment Last Done: 05/24/20 17:55
[2020-05-24 14:08] LABS: Basophils # (auto) 0.04 K/uL (0-0.2); Basophils % (auto) 0.8 %; Eosinophils # (auto) 0.12 K/uL (0-0.5); Eosinophils % (auto) 2.5 %; Hematocrit (blood only) 38.9 % (37-47); Hemoglobin 13.8 g/dL (12.0-16.0); Immature Granulocytes # (auto) 0.01 K/uL (0.00-0.02); Immature Granulocytes % (auto) 0.2 %; Lymphocytes # (auto) 2.04 K/uL (1.2-3.4); Lymphocytes % (auto) 42.1 %; Mean Corpuscular Hgb Conc 35.5 g/dL (32-36); Mean Corpuscular Volume 93.1 fL (80-100); Monocytes # (auto) 0.36 K/uL (0.11-0.59); Monocytes % (auto) 7.4 %; Neutrophils # (auto) 2.28 K/uL (1.4-6.5); Platelet Count 232 K/uL (130-400); RDW Coefficient of Variation 13.4 % (11.5-14.5); RDW Standard Deviation 45.7 fL (36.4-46.3); Red Blood Count 4.18 M/uL (4.2-5.4); White Blood Count 4.85 K/uL (4.8-10.8)
[2020-05-24 14:30] LABS: Albumin Level 3.8 gm/dl (3.4-5.0); BUN Creatinine Ratio 19.9 (10-20); Creatinine Clr Calc Pharmacy 44.5 ml/min; Est GFR (African American) 83.4
[2020-05-24 14:33] LABS: Amphetamines+Metham, Urine Neg (Neg); Barbiturates, Urine Neg (Neg); Benzodiazepine, Urine Neg (Neg); Cocaine, Urine Neg (Neg); MDMA (Ecstacy), Urine Neg (Neg); Methadone, Urine Neg (Neg); Opiate, Urine Neg (Neg); Phencyclidine, Urine Neg (Neg)
[2020-05-24 14:34] LABS: Acetaminophen < 2 ug/ml (10-30); Salicylate 3.6 mg/dl (2.8-20)
[2020-05-24 14:41] LABS: Albumin Globulin Ratio 1.1 (0.9-2); Bilirubin,Total 0.2 mg/dl (0.2-1); Globulin 3.5 gm/dl (2.5-4.0); Thyroid Stimulating Hormone 1.45 uIu/ml (0.300-4.500); Total Protein 7.3 gm/dl (6.4-8.2)
[2020-05-24] MEDS ORDERED: ACETAMINOPHEN 325 MG TAB PO PRN (18:21)
[2020-05-24] MEDS ORDERED: hydrOXYzine HCl 25 MG TAB PO PRN (18:21)
[2020-05-24] MEDS ORDERED: SODIUM CHLORIDE 0.65% NA SOLN 45 ML (OCEAN) PRN (18:21)
[2020-05-24] MEDS ORDERED: ALUMINUM/MAGNESIUM SUSP 30 ML UDC PO PRN (18:21)
[2020-05-24] MEDS ORDERED: BISMUTH SUBSALICYLATE LIQD 236 ML PO PRN (18:21)
[2020-05-24] MEDS ORDERED: MAGNESIUM HYDROXIDE SUSP 30 ML UDC PO PRN (18:21)
[2020-05-24] MEDS ORDERED: QUEtiapine FUMARATE 100 MG TABLET PO SCH (21:00)
[2020-05-24] MEDS: SIMVASTATIN 40 MG TAB PO SCH (21:17)
[2020-05-25] MEDS ORDERED: QUEtiapine FUMARATE 200 MG TAB PO SCH (09:00)
[2020-05-25] MEDS ORDERED: CIPROFLOXACIN 500 MG TAB PO SCH (09:00)
[2020-05-25] MEDS ORDERED: metFORMIN HCL ER 500 MG TABCR PO SCH (09:00)
[2020-05-25] MEDS: SITagliptin PHOSPHATE 100 MG TAB PO SCH (09:08)
[2020-05-25] MEDS: haloperidoL 5 MG TAB PO SCH (09:08)
[2020-05-25] MEDS: CITALOPRAM 20 MG TAB PO SCH (09:08)
[2020-05-25] MEDS: NITROFURANTOIN MONOHYDRATE 100 MG CAP PO SCH (09:09)
[2020-05-25] MEDS: lisinopril 10 MG TAB PO SCH (09:09)
[2020-05-25] MEDS: METOPROLOL TARTRATE 25 MG TAB PO SCH (09:09)
[2020-05-25] MEDS: NICOTINE 21 MG/24 HR TDSY TD SCH (09:30)
--- NOTE | 2020-05-25 15:48 | History & Physical ---
Date of Service May 25, 2020 Impression / Recommendations Impression This 70-year-old woman with a known diagnosis of schizophrenia recently relocated from [facility] to [place], [place] in order to be close to several of her children as well as to several of her siblings. (She was born and raised in [place], [place], the fourth daughter of her parents' 9 children.) And she indicates that the provider that was prescribing her medications when she was living in [place] provided a sufficient supply for her to continue those medications here in [facility], until she became established with a new psychiatric provider. The patient had been admitted to the medical floor approximately 5 days ago because of hyponatremia. The exact cause of the hyponatremia is unknown, but the patient tells us that her "voices" were telling her to drink excessive amounts of water, and so she did. After her hyponatremia was resolved and she was considered stable and was sent home to continue her outpatient medications. However, the patient acknowledges that she had stopped taking her quetiapine and her Celexa, again, because the voices had told her to do so. She admits that she periodically stops her medications, and usually her decision is influenced by the content of her "voices." The patient was returned to the hospital on 05/24/2020 by one of her children. The patient's children are concerned because the patient, who lives alone in a [facility] known is "[facility]" has not been able to care for her own physical needs, has seemed confused, and has resisted their efforts to get her to take her medications as prescribed. In addition to prominent auditory hallucinations, the patient reports that she has not been feeling safe and suspects that she is being followed or watched. She also reports that she believes that the "voices" are coming from actual entities, and it may be disadvantageous if she refuses to do what they say"as long as they do not tell me to do anything bad." She seems to have some insight into the connection between her taking medications and achieving relative stability, and, likewise, she does acknowledge that not taking her medications has resulted in an increase in the intensity and frequency of the auditory hallucinations. Further, she says that she understands that low serum sodium levels may be caused by excessive water intake, and she also understands that low serum sodium levels can be dangerous . She did say that she understood our recommendation that she consider taking a long-acting injectable antipsychotic medication such as haloperidol decanoate, Invega Sustenna, or Abilify Maintena. She has that she remembers that she used to take one of her medications by "about once a month" injection and she likes the convenience. The patient also seem to understand that taking her medication bimonthly injection may help prevent her from "listing to the voices" and stopping her medications when she should not. She has a very supportive family, and the current plan will be to change her over to an antipsychotic medication that is available as a long-acting depot. Because of her report that she was considered a possible candidate for a cardiac pacemaker, and because of the somewhat higher risk of QT interval prolongation associated with Invega, we will offer the patient a trial of aripiprazole 10 mg a day, titrated as tolerated to 15 mg a day and, after her scheduled dose for quetiapine 100 mg at bedtime on 05/25/2020, we will discontinue quetiapine in favor of Abilify. Also, an advantage of discontinuing quetiapine is that is known to to be associated with a somewhat higher risk of QTC prolongation. The goal will then be to switch the patient to a long-acting depot prior to discharge. Wraparound services, including case management and outpatient psychiatric treatment are also going to be necessary for the patient successful reentry into the community (1) Schizophrenia: 05/25 -The patient has been admitted to the [facility] inpatient psychiatric unit. She has been referred and has begun to participate in individual, group, and recreational therapies. Family interventions are also planned. Aftercare planning has also already started, with dialogue between the treatment team and the patient's children. -Admission, her prescribed medications included Celexa 20 mg daily and quetiapine 300 mg in the morning and 100 mg at bedtime. While these medications may have been effective in the past, of the recurrent issue seems to be that she periodically stops taking these medications, apparently primarily because of command auditory hallucinations that may occur from time to time. Currently, the plan is to change the patient's antipsychotic medication to one that can be given in long-acting depot form. Invega has been considered, but there is a vague history provided by the patient of a possible plan to place her on a pacemaker. Her most recent EKG does not indicate an arrhythmia, and her QT interval was within normal limits. Nevertheless, aripiprazole may be preferable to paliperidone because of the slightly reduced risk of QTc interval prolongation and arrhythmia. However, paliperidone may be an option if the patient's response aripiprazole is not as hoped. We will also continue Celexa 20 mg a day. -EKG repeat on 05/28/2020 to monitor for QTC interval prolongation. -Check lipid levels. Schizophrenia type: paranoid schizophrenia Qualified Code(s): F20.0 - Paranoid schizophrenia Present on Admission?: Yes (2) Noncompliance with medication regimen: 05/25 -The patient admits to a long history of episodic nonadherence with outpatient psychiatric medications. While her adult children attempt to monitor the patient's medication adherence, it is reported that at times they cannot convince her to take her medications, and the patient says that the the reason that she has stopped taking her medication, at least recently, is that she is experiencing perceptual disturbances ("auditory hallucinations") that tell her t o stop taking the medications. In fact, during the admission assessment interview the patient regularly stop speaking briefly, and then explained that she was "hearing a voice" and "trying not to listen to it." -The plan is to start the patient on aripiprazole 10 mg a day, possibly titrating to 50 mg as tolerated, and then converting to Abilify Maintena. Another option might be Invega Sustenna Present on Admission?: Yes Inventory Assets Strengths: . Supportive family. Cooperative. Good social skills. Needs: Resolution of psychosis. Improved medication adherence Risk Factors Assessment Male: No : Yes Do You Have Access To A Gun?: No Health Problems: Yes Mental Health Diagnoses: Yes Substance Use Disorders: No (Tobacco use disorder) Previous Attempt: Yes Previous Attempt; Highly Lethal: No (5 pills) Previous Attempt; Planned: No (Responding to a command auditory hallucination a number of years ago.) Previous Attempt; Didn't Tell Anyone: No Family History of Suicide: No Previous Psychiatric Hospitalization: Yes Hopelessness: No Smoker: Yes Protective Factors Assessment Cheondoism Beliefs: Yes ("Scientology.") : No Responsible for Young Children: No Employed: No Stable Relationships: Yes Supportive Family: Yes Good Rapport with Provider: Yes Absence of Any Risk Factors Above: No Psychiatric History Identifying Data SANDRINE WINKLER is a 70-year-old F who currently lives in alone in [place], [place]. She has a history of schizophrenia and was admitted on 05/24/20 18:21 on a 201 voluntary agreement because of florid psychosis, inability to car e for herself due to psychosis, and refusal of essential psychiatric treatments. Chief Complaint "The voices told me not to take my medications.". History of Present Illness The patient is a 70-year-old woman with an extensive psychiatric history dates back to her late 20s or early 30s. She carries a primary psychiatric diagnosis of schizophrenia and has previously been a patient at the [facility] in [place]. The patient had presented for a mental health evaluation on 05/20/2020. At that time, the patient was found to be hyponatremic and was admitted to the medical floor for treatment. The patient explains today that the auditory hallucinations that she was experiencing ("voices") were telling her to keep drinking water, so she did. Patient was stabilized on the medical floor, her serum sodium returned to normal, and arrangements were made for the patient to continue her psychiatric treatment on an outpatient basis following discharge. She was discharged with a medical floor on 05/22/2020. Yesterday, 05/24/2020, the patient was brought back to the hospital by her daughter. The daughter reported that she has been very concerned that the patient has been going downhill despite correction of the metabolic issues. More specifically, the patient was refusing her medications, was disorganized in her behavior to the degree that her children were not able to manage her routine activities of daily living, and, given the fact that the patient lives alone in a [facility], the patient's daughter and her siblings felt that they could not safely meet her physical needs on a 24-hour basis. The patient reports that for the past 4 or 5 years she has been living in [facility], "[place]" [place] from [place], and she recently relocated to [place] in order to be near to her children and to her siblings. She does not have local mental health providers. In addition to the above described command hallucinations (i.e., telling her to drink water and, more recently, telling her to not take medications) the patient describes a long history of fearing for her own safety and not feeling that she could trust other people because of the belief that they may be plotting against her. Past Psychiatric History Previous Psych History: The patient said that she had her first "nervous breakdown" at "around the age of 29." She indicates that she has suffered from intermittent persecutory belief that others are watching her, following her, and/or plotting against her or planning to cause her physical harm. Current Psychiatric Diagnosis: Schizophrenia Outpatient Services: Patient notes that she is seen various psychiatrists over the years, including a psychiatrist in [place]. She reports that she is not currently connected with any outpatient psychiatrist. Previous Psych Admissions: Our records indicate that she has a history of at least one admission to [place], as well as an extended admission at [facility]. Do You Have Access To A Gun?: No History of Previous Suicide Attempt: Yes ("I took about 5 pills because the voices told me to do it. That was a whil) Describe Attempts in the Past: See above Past Medication Trials: Ports that she has taken various psychiatric medications over the years. Her current psychiatric medication, as prescribed at the time of admission, included quetiapine 400 mg in the morning and 100 mg at bedtime, together with Allergies Allergy/AdvReac Type Severity Reaction Status Date / Time Iodinated Contrast Media Allergy Unknown Verified 05/25/20 09:00 Penicillins Allergy Unknown Verified 05/25/20 09:00 Sulfa (Sulfonamide Allergy Unknown Verified 05/25/20 09:00 Antibiotics) Home Medications Medication Instructions Recorded Confirmed Type Januvia 100 mg PO DAILY 05/20/20 05/24/20 History citalopram 20 mg PO DAILY 05/20/20 05/24/20 History haloperidol 5 mg PO DAILY 05/20/20 05/24/20 History lisinopril 10 mg PO DAILY 05/20/20 05/24/20 History metoprolol tartrate 25 mg PO DAILY 05/20/20 05/24/20 History quetiapine [Seroquel] 100 mg PO HS 05/20/20 05/24/20 History quetiapine [Seroquel] 400 mg PO DAILY 05/20/20 05/24/20 History simvastatin 40 mg PO PM 05/20/20 05/24/20 History ciprofloxacin HCl 500 mg PO DAILY #3 tab 05/22/20 05/24/20 Rx metformin [Glucophage XR] 500 mg PO DAILY #30 tab 05/22/20 05/24/20 Rx nitrofurantoin 100 mg PO DAILY 05/24/20 05/24/20 History Family History Family History of: Other-List under Comment Family Mental Health History Comment: Son - paranoid schizophrenia Alcohol History Hx of Alcohol Use Over the Past 12 Months: No AUDIT Total Score: 0 Smoking Use Have You Smoked or Used Tobacco Products in the Last 30 Days: Yes tobacco type: cigarettes Smoking Status: Current every day smoker Smoking packs per day: 1 Substance History Hx of Prescription Med Misuse Over the Past 12 Months: No Hx of Over the Counter Med Misuse Over the Past 12 Months: No Hx of Inhalent Misuse Over the Past 12 Months: No Hx of Organic Substance Use Over the Past 12 Months: No Hx of Illegal Substances/Street Drug Use Over Past 12 Months: No Problems as a Result of Past Substance Use: None Identified Personal History Living Arrangements: Apartment Living Arrangements Comments: moved to the area in March Highest Grade Completed: Did Not Graduate High School Highest Grade Completed Comment: 11th grade, quit when Marital Status: Single Number Of Children: 4 Beliefs That Will Affect Care: None Patient History Social History Smoking Status: Current every day smoker Cigarettes Per Day: "I dont know"; Hx Alcohol Use: No Hx Substance Use: No Preferred Language: Venezuelan Communication Ability: Effective Cash Application Clerk Required: No Beliefs That Will Affect Care: None marital status: Current Living Situation: Alone Feels Safe at Home: Yes Assistive Devices: Cane Review of Systems Review of Systems: All systems reviewed & are unremarkable except as noted in HPI & below The physical exam and review of systems completed by Dr. Noble Syed MD yesterday in the emergency department has been reviewed and is excepted for purposes of medical clearance to the behavioral health service. In addition, at least 10 systems were reviewed with the patient as part of the psychiatric admission assessment. The patient reports that she broke her "2 bones" in her right ankle in a fall at home in her apartment and is using a walker, temporarily. She complains of periodic frontal headaches, occasional diarrhea, and indicates that her only surgeries were for a tubal ligation and for some form of fertility treatment. She also says that a doctor in [place] had told her that she might need a pacemaker. Her EKG of 05/20/2020 revealed a normal QT interval and sinus rhythm. The QTc interval was slightly elevated. Physical Exam Psychiatric: Orientation: alert, oriented x 3 and cooperative The patient recognized that she was "at a hospital in [place]," and that she was on the psychiatric unit, but she did not recall the name of the hospital. (She recently moved here from [place].) Apperance: appropriately dressed and appropriately groomed Eye Contact: + fair eye contact Motor Behavior: steady gait and station Patient speech was spontaneous and delivered a normal volume. Her voice is quality is perhaps slightly monotonous. Affect: + blunted affect "Pretty good mood." Thought Process: goal directed thought process The patient thoughts were periodically blocked, and the patient explained that she was "hearing the voices." Thought Content: + delusions The patient believes that she is being watched and monitored. Suicidal Thoughts: denies suicidal thoughts Homicidal Thoughts: denies homicidal thoughts Hallucinations: + auditory hallucinations; no visual hallucinations, no tactile hallucinations and no gustatory hallucinations She believes her perceptual disturbances are real Cognition: recent memory grossly intact, remote memory grossly intact, attention grossly intact and language grossly intact Estimated Intelligence: average estimated intelligence Insight: + poor insight Judgement: + limited judgement Vital Signs (Past 24 Hours): Last Vital Signs Temp 36.5 C 05/25/20 06:46 Pulse 85 05/25/20 06:46 Resp 17 05/25/20 06:46 BP 158/88 H 05/25/20 06:46 Pulse Ox 98 05/24/20 18:00 Results & Data ([facility]) Laboratory Results Laboratory Results - last 24 hr 05/24/20 05/24/20 05/24/20 13:40 13:45 13:45 Sodium 135 L Potassium 4.0 Chloride 102 Carbon Dioxide 30 Anion Gap 3.0 BUN 16 Creatinine 0.82 Est Cr Clr Drug Dosing 44.5 Est GFR ( Amer) 83.4 Est GFR (Non-Af Amer) 72.0 BUN/Creatinine Ratio 19.9 Glucose 134 H POC Glucose Calcium 9.0 Total Bilirubin 0.2 AST 11 L ALT 29 Alkaline Phosphatase 114 Total Protein 7.3 Albumin 3.8 Globulin 3.5 Albumin/Globulin Ratio 1.1 TSH 1.450 Salicylates 3.6 Urine Opiates Screen Neg Ur Methadone, Qual Neg Acetaminophen < 2 L Urine Barbiturates Neg Ur Phencyclidine (PCP) Neg U Amphetamin/Meth Scrn Neg MDMA (Ecstasy) Screen Neg U Benzodiazepines Scrn Neg Ur Cocaine Metabolite Neg U Marijuana (THC) Screen Neg Ethyl Alcohol mg/dL COVID-19 Eval Order SARS-CoV-2, RNA, NAAT 05/24/20 05/24/20 05/24/20 13:45 18:35 18:35 Sodium Potassium Chloride Carbon Dioxide Anion Gap BUN Creatinine Est Cr Clr Drug Dosing Est GFR ( Amer) Est GFR (Non-Af Amer) BUN/Creatinine Ratio Glucose POC Glucose Calcium Total Bilirubin AST ALT Alkaline Phosphatase Total Protein Albumin Globulin Albumin/Globulin Ratio TSH Salicylates Urine Opiates Screen Ur Methadone, Qual Acetaminophen Urine Barbiturates Ur Phencyclidine (PCP) U Amphetamin/Meth Scrn MDMA (Ecstasy) Screen U Benzodiazepines Scrn Ur Cocaine Metabolite U Marijuana (THC) Screen Ethyl Alcohol mg/dL < 3.0 COVID-19 Eval [facility] SARS-CoV-2, RNA, NAAT NEGATIVE 05/25/20 00:51 Sodium Potassium Chloride Carbon Dioxide Anion Gap BUN Creatinine Est Cr Clr Drug Dosing Est GFR ( Amer) Est GFR (Non-Af Amer) BUN/Creatinine Ratio Glucose POC Glucose 124 H Calcium Total Bilirubin AST ALT Alkaline Phosphatase Total Protein Albumin Globulin Albumin/Globulin Ratio TSH Salicylates Urine Opiates Screen Ur Methadone, Qual Acetaminophen Urine Barbiturates Ur Phencyclidine (PCP) U Amphetamin/Meth Scrn MDMA (Ecstasy) Screen U Benzodiazepines Scrn Ur Cocaine Metabolite U Marijuana (THC) Screen Ethyl Alcohol mg/dL COVID-19 Eval Order SARS-CoV-2, RNA, NAAT Current Inpatient Medications Current Inpatient Medications: Current Inpatient Medications Acetaminophen (Acetaminophen 325 Mg Tab) 650 mg PO Q4H PRN PRN Reason: Headache or Minor Fever Stop: 06/23/20 18:20 Al Hydrox/Mg Hydrox/Simethicone (Aluminum/Magnesium Susp 30 Ml Udc) 30 ml PO Q4H PRN PRN Reason: GI Upset Stop: 06/23/20 18:20 Bismuth Subsalicylate (Bismuth Subsalicylate Liqd 236 Ml) 15 ml PO PRN PRN PRN Reason: Loose Stool Stop: 06/23/20 18:20 Citalopram Hydrobromide (Citalopram 20 Mg Tab) 20 mg PO DAILY [facility] Stop: 06/24/20 08:59 Last Admin: 05/25/20 09:08 Dose: 20 mg Documented by: Haloperidol (Haloperidol 5 Mg Tab) 5 mg PO DAILY [facility] Stop: 06/24/20 08:59 Last Admin: 05/25/20 09:08 Dose: 5 mg Documented by: Hydroxyzine HCl (Hydroxyzine Hcl 25 Mg Tab) 50 mg PO HSZ PRN PRN Reason: Insomnia Stop: 06/23/20 18:20 Hydroxyzine HCl (Hydroxyzine Hcl 25 Mg Tab) 25 mg PO Q4H PRN PRN Reason: Anxiety Stop: 06/23/20 18:20 Lisinopril (Lisinopril 10 Mg Tab) 10 mg PO DAILY [facility] Stop: 06/24/20 08:59 Last Admin: 05/25/20 09:09 Dose: 10 mg Documented by: Magnesium Hydroxide (Magnesium Hydroxide Susp 30 Ml Udc) 30 ml PO DAILY PRN PRN Reason: Constipation Stop: 06/23/20 18:20 Metformin HCl (Metformin Hcl Er 500 Mg Tabcr) 500 mg PO QDB [facility] Stop: 06/24/20 08:59 Last Admin: 05/25/20 09:08 Dose: 500 mg Documented by: Metoprolol Tartrate (Metoprolol Tartrate 25 Mg Tab) 25 mg PO DAILY [facility] Stop: 06/24/20 08:59 Last Admin: 05/25/20 09:09 Dose: 25 mg Documented by: Miscellaneous (Remove Nicoderm Patch) 1 ea N/A DAILY@[id number] [facility] Stop: 06/24/20 08:58 Last Admin: 05/25/20 09:29 Dose: Not Given Documented by: Nicotine (Nicotine 21 Mg/24 Hr Tdsy) 21 mg TD QAM [facility] Stop: 06/24/20 08:59 Last Admin: 05/25/20 09:30 Dose: 21 mg Documented by: Nitrofurantoin Macrocrystals (Nitrofurantoin Monohydrate 100 Mg Cap) 100 mg PO DAILY [facility] Stop: 05/30/20 08:59 Last Admin: 05/25/20 09:09 Dose: 100 mg Documented by: Quetiapine Fumarate (Quetiapine Fumarate 100 Mg Tablet) 100 mg PO HS [facility] Stop: 06/23/20 20:59 Last Admin: 05/24/20 21:17 Dose: 100 mg Documented by: Quetiapine Fumarate (Quetiapine Fumarate 200 Mg Tab) 400 mg PO DAILY [facility] Stop: 06/24/20 08:59 Last Admin: 05/25/20 09:09 Dose: 400 mg Documented by: Simvastatin (Simvastatin 40 Mg Tab) 40 mg PO PM [facility] Stop: 06/23/20 20:59 Last Admin: 05/24/20 21:17 Dose: 40 mg Documented by: Sitagliptin Phosphate (Sitagliptin Phosphate 100 Mg Tab) 100 mg PO DAILY [facility] Stop: 06/24/20 08:59 Last Admin: 05/25/20 09:08 Dose: 100 mg Documented by: Sodium Chloride (Sodium Chloride 0.65% Na Soln 45 Ml ([place])) 1 - 2 sprays NA PRN PRN PRN Reason: Nasal Dryness/Congestion Stop: 06/23/20 18:20
[2020-05-25] MEDS: SIMVASTATIN 40 MG TAB PO SCH (20:37)
[2020-05-25] MEDS ORDERED: QUEtiapine FUMARATE 100 MG TABLET PO ONE (22:00)
[2020-05-26] MEDS: CITALOPRAM 20 MG TAB PO SCH (09:30)
[2020-05-26] MEDS: haloperidoL 5 MG TAB PO SCH (09:30)
[2020-05-26] MEDS: ARIPiprazole 10 MG TAB PO SCH (09:30)
[2020-05-26] MEDS: metFORMIN HCL ER 500 MG TABCR PO SCH (09:30)
[2020-05-26] MEDS: SITagliptin PHOSPHATE 100 MG TAB PO SCH (09:31)
[2020-05-26] MEDS: NITROFURANTOIN MONOHYDRATE 100 MG CAP PO SCH (09:31)
[2020-05-26] MEDS: METOPROLOL TARTRATE 25 MG TAB PO SCH (09:31)
[2020-05-26] MEDS: lisinopril 10 MG TAB PO SCH (09:31)
[2020-05-26] MEDS: NICOTINE 21 MG/24 HR TDSY TD SCH (09:38)
[2020-05-26 10:09] LABS: Chol HDL Ratio 2; Cholesterol 181 mg/dl (0-200); HDL Cholesterol 84 mg/dl; LDL Cholesterol Calculated 76 mg/dl; Triglycerides 106 mg/dl (0-150); VLDL Cholesterol 21 mg/dl
--- NOTE | 2020-05-26 13:51 | Psychiatric Progress Note ---
Date of Service May 26, 2020 Impression / Recommendations Impression This 70-year-old woman with a known diagnosis of schizophrenia recently relocated from [facility] to [place], [place] in order to be close to several of her children as well as to several of her siblings. (She was born and raised in [place], [place], the fourth daughter of her parents' 9 children.) And she indicates that the provider that was prescribing her medications when she was living in [place] provided a sufficient supply for her to continue those medications here in [facility], until she became established with a new psychiatric provider. The patient had been admitted to the medical floor approximately 5 days ago because of hyponatremia. The exact cause of the hyponatremia is unknown, but the patient tells us that her "voices" were telling her to drink excessive amounts of water, and so she did. After her hyponatremia was resolved and she was considered stable and was sent home to continue her outpatient medications. However, the patient acknowledges that she had stopped taking her quetiapine and her Celexa, again, because the voices had told her to do so. She admits that she periodically stops her medications, and usually her decision is influenced by the content of her "voices." The patient was returned to the hospital on 05/24/2020 by one of her children. The patient's children are concerned because the patient, who lives alone in a high [facility] "[facility]" has not been able to care for her own physical needs, has seemed confused, and has resisted their efforts to get her to take her medications as prescribed. In addition to prominent auditory hallucinations, the patient reports that she has not been feeling safe and suspects that she is being followed or watched. She also reports that she believes that the "voices" are coming from actual entities, and it may be disadvantageous if she refuses to do what they say"as long as they do not tell me to do anything bad." She seems to have some insight into the connection between her taking medications and achieving relative stability, and, likewise, she does acknowledge that not taking her medications has resulted in an increase in the intensity and frequency of the auditory hallucinations. Further, she says that she understands that low serum sodium levels may be caused by excessive water intake, and she also understands that low serum sodium levels ca n be dangerous . She did say that she understood our recommendation that she consider taking a long-acting injectable antipsychotic medication such as haloperidol decanoate, Invega Sustenna, or Abilify Maintena. She has that she remembers that she used to take one of her medications by "about once a month" injection and she likes the convenience. The patient also seem to understand that taking her medication bimonthly injection may help prevent her from "listing to the voices" and stopping her medications when she should not. She has a very supportive family, and the current plan will be to change her over to an antipsychotic medication that is available as a long-acting depot. Because of her report that she was considered a possible candidate for a cardiac pacemaker, and because of the somewhat higher risk of QT interval prolongation associated with Invega, we will offer the patient a trial of aripiprazole 10 mg a day, titrated as tolerated to 15 mg a day and, after her scheduled dose for quetiapine 100 mg at bedtime on 05/25/2020, we will discontinue quetiapine in favor of Abilify. Also, an advantage of discontinuing quetiapine is that is known to to be associated with a somewhat higher risk of QTC prolongation. The goal will then be to switch the patient to a long-acting depot prior to discharge. Wraparound services, including case management and outpatient psychiatric treatment are also going to be necessary for the patient successful reentry into the community 05/26 reviewed. Improving. (1) Schizophrenia: 05/25 -The patient has been admitted to the [facility] inpatient psychiatric unit. She has been referred and has begun to participate in individual, group, and recreational therapies. Family interventions are also planned. Aftercare planning has also already started, with dialogue between the treatment team and the patient's children. -Admission, her prescribed medications included Celexa 20 mg daily and quetiapine 300 mg in the morning and 100 mg at bedtime. While these medications may have been effective in the past, of the recurrent issue seems to be that she periodically stops taking these medications, apparently primarily because of command auditory hallucinations that may occur from time to time. Currently, the plan is to change the patient's antipsychotic medication to one that can be given in long-acting depot form. Invega has been considered, but there is a vague history provided by the patient of a possible plan to place her on a pacemaker. Her most recent EKG does not indicate an arrhythmia, and her QT interval was within normal limits. Nevertheless, aripiprazole may be preferable to paliperidone because of the slightly reduced risk of QTc interval prolongation and arrhythmia. However, paliperidone may be an option if the patient's response aripiprazole is not as hoped. We will also continue Celexa 20 mg a day. -EKG repeat on 05/28/2020 to monitor for QTC interval prolongation. -Check lipid levels. 05/26--reviewed. (2) Noncompliance with medication regimen: 05/25 -The patient admits to a long history of episodic nonadherence with outpatient psychiatric medications. While her adult children attempt to monitor the patient's medication adherence, it is reported that at times they cannot convince her to take her medications, and the patient says that the the reason that she has stopped taking her medication, at least recently, is that she is experiencing perceptual disturbances ("auditory hallucinations") that tell her to stop taking the medications. In fact, during the admission assessment interview the patient regularly stop speaking briefly, and then explained that she was "hearing a voice" and "trying not to listen to it." -The plan is to start the patient on aripiprazole 10 mg a day, possibly titrating to 50 mg as tolerated, and then converting to Abilify Maintena. Another option might be Invega Sustenna 05/26--reviewed. Inventory Assets Strengths: . Supportive family. Cooperative. Good social skills. Needs: Resolution of psychosis. Improved medication adherence Risk Factors Assessment Male: No : Yes Do You Have Access To A Gun?: No Health Problems: Yes Mental Health Diagnoses: Yes Substance Use Disorders: No (Tobacco use disorder) Previous Attempt: Yes Previous Attempt; Highly Lethal: No (5 pills) Previous Attempt; Planned: No (Responding to a command auditory hallucination a number of years ago.) Previous Attempt; Didn't Tell Anyone: No Family History of Suicide: No Previous Psychiatric Hospitalization: Yes Hopelessness: No Smoker: Yes Protective Factors Assessment Bahai Beliefs: Yes ("Sikhism.") : No Responsible for Young Children: No Employed: No Stable Relationships: Yes Supportive Family: Yes Good Rapport with Provider: Yes Absence of Any Risk Factors Above: No Interval History Chief Complaint "I'm feeling better today". Review of Systems Sleep Information Total Hours of Sleep: 5.25 Meal Information Percent Meal Consumed - Breakfast: 100 Percent Meal Consumed - Lunch: 100 Percent Meal Consumed - Dinner: 100 Subjective Subjective Patient was seen & assessed and interval progress reviewed with nursing and social work. States that visual and auditory azar resolved overnight. denies issues with tolerability of Abilify so far. She was taking meds consistently prior to the move and recent illness. Denies polydipsia. Would be open to RUVALACBA and daughter would support but given Medicare cost may be prohibitive unless Haldol. Physical Exam Psychiatric Orientation: alert, oriented x 3 and cooperative Apperance: appropriately dressed and appropriately groomed Eye Contact: + fair eye contact Motor Behavior: steady gait and station Affect: + blunted affect Thought Process: goal directed thought process Thought Content: + delusions Suicidal Thoughts: denies suicidal thoughts Homicidal Thoughts: denies homicidal thoughts Hallucinations: no auditory hallucinations, no visual hallucinations, no tactile hallucinations and no gustatory hallucinations Cognition: recent memory grossly intact, remote memory grossly intact, attention grossly intact and language grossly intact Estimated Intelligence: average estimated intelligence Insight: + poor insight Judgement: + limited judgement Vital Signs (Past 24 Hours) Last Vital Signs Temp 36.3 C L 05/26/20 06:47 Pulse 106 H 05/26/20 06:48 Resp 16 05/26/20 06:47 BP 127/80 05/26/20 06:48 Pulse Ox 98 05/24/20 18:00 Results & Data ([facility]) Laboratory Results Laboratory Results - last 24 hr 05/26/20 08:32 Triglycerides 106 Cholesterol 181 LDL Cholesterol, Calc 76 VLDL Cholesterol, Calc 21 HDL Cholesterol 84 Cholesterol/HDL Ratio 2 Current Inpatient Medications Current Inpatient Medications: Current Inpatient Medications Acetaminophen (Acetaminophen 325 Mg Tab) 650 mg PO Q4H PRN PRN Reason: Headache or Minor Fever Stop: 06/23/20 18:20 Al Hydrox/Mg Hydrox/Simethicone (Aluminum/Magnesium Susp 30 Ml Udc) 30 ml PO Q4H PRN PRN Reason: GI Upset Stop: 06/23/20 18:20 Aripiprazole (Aripiprazole 10 Mg Tab) 10 mg PO QAM IVONE Stop: 06/25/20 08:59 Last Admin: 05/26/20 09:30 Dose: 10 mg Documented by: Bismuth Subsalicylate (Bismuth Subsalicylate Liqd 236 Ml) 15 ml PO PRN PRN PRN Reason: Loose Stool Stop: 06/23/20 18:20 Citalopram Hydrobromide (Citalopram 20 Mg Tab) 20 mg PO DAILY [facility] Stop: 06/24/20 08:59 Last Admin: 05/26/20 09:30 Dose: 20 mg Documented by: Haloperidol (Haloperidol 5 Mg Tab) 5 mg PO DAILY [facility] Stop: 06/24/20 08:59 Last Admin: 05/26/20 09:30 Dose: 5 mg Documented by: Hydroxyzine HCl (Hydroxyzine Hcl 25 Mg Tab) 50 mg PO HSZ PRN PRN Reason: Insomnia Stop: 06/23/20 18:20 Hydroxyzine HCl (Hydroxyzine Hcl 25 Mg Tab) 25 mg PO Q4H PRN PRN Reason: Anxiety Stop: 06/23/20 18:20 Lisinopril (Lisinopril 10 Mg Tab) 10 mg PO DAILY [facility] Stop: 06/24/20 08:59 Last Admin: 05/26/20 09:31 Dose: 10 mg Documented by: Magnesium Hydroxide (Magnesium Hydroxide Susp 30 Ml Udc) 30 ml PO DAILY PRN PRN Reason: Constipation Stop: 06/23/20 18:20 Metformin HCl (Metformin Hcl Er 500 Mg Tabcr) 1,000 mg PO QDB [facility] Stop: 06/25/20 08:59 Last Admin: 05/26/20 09:30 Dose: 1,000 mg Documented by: Metoprolol Tartrate (Metoprolol Tartrate 25 Mg Tab) 25 mg PO DAILY [facility] Stop: 06/24/20 08:59 Last Admin: 05/26/20 09:31 Dose: 25 mg Documented by: Miscellaneous (Remove Nicoderm Patch) 1 ea N/A DAILY@[id number] [facility] Stop: 06/24/20 08:58 Last Admin: 05/26/20 09:40 Dose: Not Given Documented by: Nicotine (Nicotine 21 Mg/24 Hr Tdsy) 21 mg TD QAM [facility] Stop: 06/24/20 08:59 Last Admin: 05/26/20 09:38 Dose: 21 mg Documented by: Nitrofurantoin Macrocrystals (Nitrofurantoin Monohydrate 100 Mg Cap) 100 mg PO DAILY [facility] Stop: 05/30/20 08:59 Last Admin: 05/26/20 09:31 Dose: 100 mg Documented by: Simvastatin (Simvastatin 40 Mg Tab) 40 mg PO PM IVONE Stop: 06/23/20 20:59 Last Admin: 05/25/20 20:37 Dose: 40 mg Documented by: Sitagliptin Phosphate (Sitagliptin Phosphate 100 Mg Tab) 100 mg PO DAILY IVONE Stop: 06/24/20 08:59 Last Admin: 05/26/20 09:31 Dose: 100 mg Documented by: Sodium Chloride (Sodium Chloride 0.65% Na Soln 45 Ml ([place])) 1 - 2 sprays NA PRN PRN PRN Reason: Nasal Dryness/Congestion Stop: 06/23/20 18:20 Mental Health & Subst Abuse Tx Therapist Name of Therapist: None current Washery Engineer Name of Washery Engineer: None (1) Schizophrenia Schizophrenia type: paranoid schizophrenia Qualified Code(s): F20.0 - Paranoid schizophrenia
[2020-05-26] MEDS: SIMVASTATIN 40 MG TAB PO SCH (20:43)
[2020-05-26] MEDS: haloperidoL 5 MG TAB PO PRN (21:12)
[2020-05-27] MEDS: ARIPiprazole 10 MG TAB PO SCH (09:02)
[2020-05-27] MEDS: metFORMIN HCL ER 500 MG TABCR PO SCH (09:02)
[2020-05-27] MEDS: lisinopril 10 MG TAB PO SCH (09:02)
[2020-05-27] MEDS: METOPROLOL TARTRATE 25 MG TAB PO SCH (09:02)
[2020-05-27] MEDS: CITALOPRAM 20 MG TAB PO SCH (09:02)
[2020-05-27] MEDS: NITROFURANTOIN MONOHYDRATE 100 MG CAP PO SCH (09:02)
[2020-05-27] MEDS: SITagliptin PHOSPHATE 100 MG TAB PO SCH (09:02)
[2020-05-27] MEDS: haloperidoL 5 MG TAB PO SCH (09:03)
[2020-05-27] MEDS: NICOTINE 21 MG/24 HR TDSY TD SCH (09:09)
[2020-05-27] MEDS ORDERED: BENZTROPINE MESYLATE 1 MG TAB PO PRN (10:33)
[2020-05-27] MEDS ORDERED: ARIPiprazole 5 MG TAB PO ONE (11:00)
--- NOTE | 2020-05-27 14:53 | Psychiatric Progress Note ---
Date of Service May 27, 2020 Impression / Recommendations Impression This 70-year-old woman with a known diagnosis of schizophrenia recently relocated from [facility] to [place], [place] in order to be close to several of her children as well as to several of her siblings. (She was born and raised in [place], [place], the fourth daughter of her parents' 9 children.) And she indicates that the provider that was prescribing her medications when she was living in [place] provided a sufficient supply for her to continue those medications here in [facility], until she became established with a new psychiatric provider. The patient had been admitted to the medical floor approximately 5 days ago because of hyponatremia. The exact cause of the hyponatremia is unknown, but the patient tells us that her "voices" were telling her to drink excessive amounts of water, and so she did. After her hyponatremia was resolved and she was considered stable and was sent home to continue her outpatient medications. However, the patient acknowledges that she had stopped taking her quetiapine and her Celexa, again, because the voices had told her to do so. She admits that she periodically stops her medications, and usually her decision is influenced by the content of her "voices." The patient was returned to the hospital on 05/24/2020 by one of her children. The patient's children are concerned because the patient, who lives alone in a [facility] "[facility]" has not been able to care for her own physical needs, has seemed confused, and has resisted their efforts to get her to take her medications as prescribed. In addition to prominent auditory hallucinations, the patient reports that she has not been feeling safe and suspects that she is being followed or watched. She also reports that she believes that the "voices" are coming from actual entities, and it may be disadvantageous if she refuses to do what they say"as long as they do not tell me to do anything bad." She seems to have some insight into the connection between her taking medications and achieving relative stability, and, likewise, she does acknowledge that not taking her medications has resulted in an increase in the intensity and frequency of the auditory hallucinations. Further, she says that she understands that low serum sodium levels may be caused by excessive water intake, and she also understands that low serum sodium levels ca n be dangerous . She did say that she understood our recommendation that she consider taking a long-acting injectable antipsychotic medication such as haloperidol decanoate, Invega Sustenna, or Abilify Maintena. She has that she remembers that she used to take one of her medications by "about once a month" injection and she likes the convenience. The patient also seem to understand that taking her medication bimonthly injection may help prevent her from "listing to the voices" and stopping her medications when she should not. She has a very supportive family, and the current plan will be to change her over to an antipsychotic medication that is available as a long-acting depot. Because of her report that she was considered a possible candidate for a cardiac pacemaker, and because of the somewhat higher risk of QT interval prolongation associated with Invega, we will offer the patient a trial of aripiprazole 10 mg a day, titrated as tolerated to 15 mg a day and, after her scheduled dose for quetiapine 100 mg at bedtime on 05/25/2020, we will discontinue quetiapine in favor of Abilify. Also, an advantage of discontinuing quetiapine is that is known to to be associated with a somewhat higher risk of QTC prolongation. The goal will then be to switch the patient to a long-acting depot prior to discharge. Wraparound services, including case management and outpatient psychiatric treatment are also going to be necessary for the patient successful reentry into the community 05/26 reviewed. Improving. (1) Schizophrenia: 05/25 -The patient has been admitted to the [facility] inpatient psychiatric unit. She has been referred and has begun to participate in individual, group, and recreational therapies. Family interventions are also planned. Aftercare planning has also already started, with dialogue between the treatment team and the patient's children. -Admission, her prescribed medications included Celexa 20 mg daily and quetiapine 300 mg in the morning and 100 mg at bedtime. While these medications may have been effective in the past, of the recurrent issue seems to be that she periodically stops taking these medications, apparently primarily because of command auditory hallucinations that may occur from time to time. Currently, the plan is to change the patient's antipsychotic medication to one that can be given in long-acting depot form. Invega has been considered, but there is a vague history provided by the patient of a possible plan to place her on a pacemaker. Her most recent EKG does not indicate an arrhythmia, and her QT interval was within normal limits. Nevertheless, aripiprazole may be preferable to paliperidone because of the slightly reduced risk of QTc interval prolongation and arrhythmia. However, paliperidone may be an option if the patient's response aripiprazole is not as hoped. We will also continue Celexa 20 mg a day. -EKG repeat on 05/28/2020 to monitor for QTC interval prolongation. -Check lipid levels. 05/26--reviewed. 05/27--titrate Abilify to 15 mg. If no immediate improvement consider retrial Seroquel since injectable is not particularly affordable for family. Daughter would still support. Haldol prn. (2) Noncompliance with medication regimen: 05/25 -The patient admits to a long history of episodic nonadherence with outpatient psychiatric medications. While her adult children attempt to monitor the patient's medication adherence, it is reported that at times they cannot convince her to take her medications, and the patient says that the the reason that she has stopped taking her medication, at least recently, is that she is experiencing perceptual disturbances ("auditory hallucinations") that tell her to stop taking the medications. In fact, during the admission assessment interview the patient regularly stop speaking briefly, and then explained that she was "hearing a voice" and "trying not to listen to it." -The plan is to start the patient on aripiprazole 10 mg a day, possibly titrating to 50 mg as tolerated, and then converting to Abilify Maintena. Another option might be Invega Sustenna 05/26--reviewed. Inventory Assets Strengths: . Supportive family. Cooperative. Good social skills. Needs: Resolution of psychosis. Improved medication adherence Risk Factors Assessment Male: No : Yes Do You Have Access To A Gun?: No Health Problems: Yes Mental Health Diagnoses: Yes Substance Use Disorders: No (Tobacco use disorder) Previous Attempt: Yes Previous Attempt; Highly Lethal: No (5 pills) Previous Attempt; Planned: No (Responding to a command auditory hallucination a number of years ago.) Previous Attempt; Didn't Tell Anyone: No Family History of Suicide: No Previous Psychiatric Hospitalization: Yes Hopelessness: No Smoker: Yes Protective Factors Assessment Amish Beliefs: Yes ("Holiness.") : No Responsible for Young Children: No Employed: No Stable Relationships: Yes Supportive Family: Yes Good Rapport with Provider: Yes Absence of Any Risk Factors Above: No Interval History Chief Complaint "I had those voices again, I'm going to get them". Review of Systems Sleep Information Total Hours of Sleep: 7.25 Meal Information Percent Meal Consumed - Breakfast: 100 Percent Meal Consumed - Lunch: 100 Percent Meal Consumed - Dinner: 80 Subjective Subjective Patient was seen & assessed and interval progress reviewed with nursing and social work. States that multiple voices are saying bad things about her, talking about "the kids again". She states they were present yesterday around lunch time but she didn't tell anyone until much later. Group was a distractor and Haldol also helped. States this am "they are just a muffle in my head" which is improved. She agreed to increase her Abilify as seems to wear off mid day but when additional 5 mg was offered per staff she refused it/smacked it away. Physical Exam Psychiatric Orientation: alert Eye Contact: + fair eye contact Motor Behavior: steady gait and station (with walker) Speech: + pressured speech Affect: + depressed affect Mood: + anxious mood Thought Process: + concrete thought process Thought Content: + delusions Suicidal Thoughts: denies suicidal thoughts Homicidal Thoughts: denies homicidal thoughts Hallucinations: + auditory hallucinations; no visual hallucinations Insight: + poor insight Judgement: + poor judgement Vital Signs (Past 24 Hours) Last Vital Signs Temp 36.7 C 05/27/20 06:54 Pulse 114 H 05/27/20 06:54 Resp 16 05/27/20 06:54 BP 161/85 H 05/27/20 06:54 Pulse Ox 98 05/24/20 18:00 Results & Data ([facility]) Current Inpatient Medications Current Inpatient Medications: Current Inpatient Medications Acetaminophen (Acetaminophen 325 Mg Tab) 650 mg PO Q4H PRN PRN Reason: Headache or Minor Fever Stop: 06/23/20 18:20 Al Hydrox/Mg Hydrox/Simethicone (Aluminum/Magnesium Susp 30 Ml Udc) 30 ml PO Q4H PRN PRN Reason: GI Upset Stop: 06/23/20 18:20 Aripiprazole (Aripiprazole 15 Mg Tab) 15 mg PO QAM IVONE Stop: 06/27/20 08:59 Benztropine Mesylate (Benztropine Mesylate 1 Mg Tab) 1 mg PO BID PRN PRN Reason: Muscle Spasm Stop: 06/26/20 10:32 Bismuth Subsalicylate (Bismuth Subsalicylate Liqd 236 Ml) 15 ml PO PRN PRN PRN Reason: Loose Stool Stop: 06/23/20 18:20 Citalopram Hydrobromide (Citalopram 20 Mg Tab) 20 mg PO DAILY [facility] Stop: 06/24/20 08:59 Last Admin: 05/27/20 09:02 Dose: 20 mg Documented by: Haloperidol (Haloperidol 5 Mg Tab) 5 mg PO DAILY [facility] Stop: 06/24/20 08:59 Last Admin: 05/27/20 09:03 Dose: 5 mg Documented by: Haloperidol (Haloperidol 5 Mg Tab) 5 mg PO Q6H PRN PRN Reason: psychosis Stop: 06/25/20 20:50 Last Admin: 05/26/20 21:12 Dose: 5 mg Documented by: Hydroxyzine HCl (Hydroxyzine Hcl 25 Mg Tab) 50 mg PO HSZ PRN PRN Reason: Insomnia Stop: 06/23/20 18:20 Hydroxyzine HCl (Hydroxyzine Hcl 25 Mg Tab) 25 mg PO Q4H PRN PRN Reason: Anxiety Stop: 06/23/20 18:20 Lisinopril (Lisinopril 10 Mg Tab) 10 mg PO DAILY [facility] Stop: 06/24/20 08:59 Last Admin: 05/27/20 09:02 Dose: 10 mg Documented by: Magnesium Hydroxide (Magnesium Hydroxide Susp 30 Ml Udc) 30 ml PO DAILY PRN PRN Reason: Constipation Stop: 06/23/20 18:20 Metformin HCl (Metformin Hcl Er 500 Mg Tabcr) 1,000 mg PO QDB [facility] Stop: 06/25/20 08:59 Last Admin: 05/27/20 09:02 Dose: 1,000 mg Documented by: Metoprolol Tartrate (Metoprolol Tartrate 25 Mg Tab) 25 mg PO DAILY [facility] Stop: 06/24/20 08:59 Last Admin: 05/27/20 09:02 Dose: 25 mg Documented by: Miscellaneous (Remove Nicoderm Patch) 1 ea N/A [id number] [facility] Stop: 06/24/20 08:58 Last Admin: 05/27/20 09:08 Dose: 1 ea Documented by: Nicotine (Nicotine 21 Mg/24 Hr Tdsy) 21 mg TD QAM IVONE Stop: 06/24/20 08:59 Last Admin: 05/27/20 09:09 Dose: 21 mg Documented by: Nitrofurantoin Macrocrystals (Nitrofurantoin Monohydrate 100 Mg Cap) 100 mg PO DAILY IVONE Stop: 05/30/20 08:59 Last Admin: 05/27/20 09:02 Dose: 100 mg Documented by: Simvastatin (Simvastatin 40 Mg Tab) 40 mg PO PM IVONE Stop: 06/23/20 20:59 Last Admin: 05/26/20 20:43 Dose: 40 mg Documented by: Sitagliptin Phosphate (Sitagliptin Phosphate 100 Mg Tab) 100 mg PO DAILY IVONE Stop: 06/24/20 08:59 Last Admin: 05/27/20 09:02 Dose: 100 mg Documented by: Sodium Chloride (Sodium Chloride 0.65% Na Soln 45 Ml ([place])) 1 - 2 sprays NA PRN PRN PRN Reason: Nasal Dryness/Congestion Stop: 06/23/20 18:20 Mental Health & Subst Abuse Tx Therapist Name of Therapist: None current Diesel Truck Technician Name of Diesel Truck Technician: None (1) Schizophrenia Schizophrenia type: paranoid schizophrenia Qualified Code(s): F20.0 - Paranoid schizophrenia
[2020-05-27] MEDS: SIMVASTATIN 40 MG TAB PO SCH (20:55)
[2020-05-27] MEDS: haloperidoL 5 MG TAB PO PRN (20:55)
[2020-05-28] MEDS: NITROFURANTOIN MONOHYDRATE 100 MG CAP PO SCH (10:21)
[2020-05-28] MEDS: CITALOPRAM 20 MG TAB PO SCH (10:21)
[2020-05-28] MEDS: lisinopril 10 MG TAB PO SCH (10:21)
[2020-05-28] MEDS: metFORMIN HCL ER 500 MG TABCR PO SCH (10:21)
[2020-05-28] MEDS: SITagliptin PHOSPHATE 100 MG TAB PO SCH (10:21)
[2020-05-28] MEDS: METOPROLOL TARTRATE 25 MG TAB PO SCH (10:21)
[2020-05-28] MEDS: NICOTINE 21 MG/24 HR TDSY TD SCH (10:21)
[2020-05-28] MEDS: ARIPiprazole 15 MG TAB PO SCH (10:21)
[2020-05-28] MEDS: haloperidoL 5 MG TAB PO SCH (10:21)
--- NOTE | 2020-05-28 14:17 | Psychiatric Progress Note ---
Date of Service May 28, 2020 Impression / Recommendations Impression This 70-year-old woman with a known diagnosis of schizophrenia recently relocated from [facility] to [place], [place] in order to be close to several of her children as well as to several of her siblings. (She was born and raised in [place], [place], the fourth daughter of her parents' 9 children.) And she indicates that the provider that was prescribing her medications when she was living in [place] provided a sufficient supply for her to continue those medications here in [facility], until she became established with a new psychiatric provider. The patient had been admitted to the medical floor approximately 5 days ago because of hyponatremia. The exact cause of the hyponatremia is unknown, but the patient tells us that her "voices" were telling her to drink excessive amounts of water, and so she did. After her hyponatremia was resolved and she was considered stable and was sent home to continue her outpatient medications. However, the patient acknowledges that she had stopped taking her quetiapine and her Celexa, again, because the voices had told her to do so. She admits that she periodically stops her medications, and usually her decision is influenced by the content of her "voices." The patient was returned to the hospital on 05/24/2020 by one of her children. The patient's children are concerned because the patient, who lives alone in [facility]" has not been able to care for her own physical needs, has seemed confused, and has resisted their efforts to get her to take her medications as prescribed. In addition to prominent auditory hallucinations, the patient reports that she has not been feeling safe and suspects that she is being followed or watched. She also reports that she believes that the "voices" are coming from actual entities, and it may be disadvantageous if she refuses to do what they say"as long as they do not tell me to do anything bad." She seems to have some insight into the connection between her taking medications and achieving relative stability, and, likewise, she does acknowledge that not taking her medications has resulted in an increase in the intensity and frequency of the auditory hallucinations. Further, she says that she understands that low serum sodium levels may be caused by excessive water intake, and she also understands that low serum sodium levels ca n be dangerous . She did say that she understood our recommendation that she consider taking a long-acting injectable antipsychotic medication such as haloperidol decanoate, Invega Sustenna, or Abilify Maintena. She has that she remembers that she used to take one of her medications by "about once a month" injection and she likes the convenience. The patient also seem to understand that taking her medication bimonthly injection may help prevent her from "listing to the voices" and stopping her medications when she should not. She has a very supportive family, and the current plan will be to change her over to an antipsychotic medication that is available as a long-acting depot. Because of her report that she was considered a possible candidate for a cardiac pacemaker, and because of the somewhat higher risk of QT interval prolongation associated with Invega, we will offer the patient a trial of aripiprazole 10 mg a day, titrated as tolerated to 15 mg a day and, after her scheduled dose for quetiapine 100 mg at bedtime on 05/25/2020, we will discontinue quetiapine in favor of Abilify. Also, an advantage of discontinuing quetiapine is that is known to to be associated with a somewhat higher risk of QTC prolongation. The goal will then be to switch the patient to a long-acting depot prior to discharge. Wraparound services, including case management and outpatient psychiatric treatment are also going to be necessary for the patient successful reentry into the community 05/28--ongoing paranoia and aud azar. Intermittent med compliance issues. (1) Schizophrenia: 05/25 -The patient has been admitted to the [facility] inpatient psychiatric unit. She has been referred and has begun to participate in individual, group, and recreational therapies. Family interventions are also planned. Aftercare planning has also already started, with dialogue between the treatment team and the patient's children. -Admission, her prescribed medications included Celexa 20 mg daily and quetiapine 300 mg in the morning and 100 mg at bedtime. While these medications may have been effective in the past, of the recurrent issue seems to be that she periodically stops taking these medications, apparently primarily because of command auditory hallucinations that may occur from time to time. Currently, the plan is to change the patient's antipsychotic medication to one that can be given in long-acting depot form. Invega has been considered, but there is a vague history provided by the patient of a possible plan to place her on a pacemaker. Her most recent EKG does not indicate an arrhythmia, and her QT interval was within normal limits. Nevertheless, aripiprazole may be preferable to paliperidone because of the slightly reduced risk of QTc interval prolongation and arrhythmia. However, paliperidone may be an option if the patient's response aripiprazole is not as hoped. We will also continue Celexa 20 mg a day. -EKG repeat on 05/28/2020 to monitor for QTC interval prolongation. -Check lipid levels. 05/26--reviewed. 05/27--titrate Abilify to 15 mg. If no immediate improvement consider retrial Seroquel since injectable is not particularly affordable for family. Daughter would still support injectable if only medication. Haldol prn. 05/28--doesn't seem to be improving, hard to know if was initially honeymooning or if also a sundowning component as tends to get worse on pm shift. If patient ultimately refuses antipsychotic medication she should be converted to an involuntary commitment as no longer voluntary and she is clearly unable to care for self outside of the hospital as frequently doesn't believe her children are real and has shown some aggressive acting out. She has a longstanding diagnosis of schizophrenia and has responded well in the past. It's my medical opinion that without antipsychotic medication she would represent a significant risk to herself or others within 30 days, particularly given her recent polydipsia and subsequent hyponatremia. Repeat sodium in am. (2) Noncompliance with medication regimen: 05/25 -The patient admits to a long history of episodic nonadherence with outpatient psychiatric medications. While her adult children attempt to monitor the patient's medication adherence, it is reported that at times they cannot convince her to take her medications, and the patient says that the the reason that she has stopped taking her medication, at least recently, is that she is experiencing perceptual disturbances ("auditory hallucinations") that tell her to stop taking the medications. In fact, during the admission assessment interview the patient regularly stop speaking briefly, and then explained that she was "hearing a voice" and "trying not to listen to it." -The plan is to start the patient on aripiprazole 10 mg a day, possibly titrating to 50 mg as tolerated, and then converting to Abilify Maintena. Another option might be Invega Sustenna 05/26--reviewed. Inventory Assets Strengths: . Supportive family. Cooperative. Good social skills. Needs: Resolution of psychosis. Improved medication adherence Risk Factors Assessment Male: No : Yes Do You Have Access To A Gun?: No Health Problems: Yes Mental Health Diagnoses: Yes Substance Use Disorders: No (Tobacco use disorder) Previous Attempt: Yes Previous Attempt; Highly Lethal: No (5 pills) Previous Attempt; Planned: No (Responding to a command auditory hallucination a number of years ago.) Previous Attempt; Didn't Tell Anyone: No Family History of Suicide: No Previous Psychiatric Hospitalization: Yes Hopelessness: No Smoker: Yes Protective Factors Assessment Pentecostalism Beliefs: Yes ("Orthodoxy.") : No Responsible for Young Children: No Employed: No Stable Relationships: Yes Supportive Family: Yes Good Rapport with Provider: Yes Absence of Any Risk Factors Above: No Interval History Chief Complaint "The voices tell me that something's not right with those pills but they don't have to, I already know.". Review of Systems Sleep Information Total Hours of Sleep: 7.25 Meal Information Percent Meal Consumed - Breakfast: 100 Percent Meal Consumed - Lunch: 100 Percent Meal Consumed - Dinner: 100 Subjective Subjective Patient was seen & assessed and interval progress reviewed with treatment team. Patient hasn't been agitated around other patients, ambulating well with walker and attending groups but will intermittently appear quite paranoid and is suspicious around meds now. Initially refused them this am but did not swat at nurse like yesterday. Told me she would only take if saw staff opening them. She then became defensive and said "I know who my kids are" Physical Exam Psychiatric Orientation: alert Apperance: appropriately groomed Eye Contact: + fair eye contact Motor Behavior: steady gait and station Speech: normal rate/rhythm/volume of speech Affect: + blunted affect Mood: + irritable mood Thought Process: + concrete thought process Thought Content: + paranoid and + delusions Suicidal Thoughts: denies suicidal thoughts Homicidal Thoughts: denies homicidal thoughts Hallucinations: + auditory hallucinations; no visual hallucinations Cognition: language grossly intact; + attention not intact Insight: + poor insight Judgement: + poor judgement Vital Signs (Past 24 Hours) Last Vital Signs Temp 36.9 C 05/28/20 06:57 Pulse 121 H 05/28/20 06:58 Resp 16 05/28/20 06:57 BP 118/80 05/28/20 06:58 Pulse Ox 98 05/24/20 18:00 Results & Data ([facility] [[email or web address] Current Inpatient Medications Current Inpatient Medications: Current Inpatient Medications Acetaminophen (Acetaminophen 325 Mg Tab) 650 mg PO Q4H PRN PRN Reason: Headache or Minor Fever Stop: 06/23/20 18:20 Al Hydrox/Mg Hydrox/Simethicone (Aluminum/Magnesium Susp 30 Ml Udc) 30 ml PO Q4H PRN PRN Reason: GI Upset Stop: 06/23/20 18:20 Aripiprazole (Aripiprazole 15 Mg Tab) 15 mg PO QAM IVONE Stop: 06/27/20 08:59 Last Admin: 05/28/20 10:21 Dose: 15 mg Documented by: Benztropine Mesylate (Benztropine Mesylate 1 Mg Tab) 1 mg PO BID PRN PRN Reason: Muscle Spasm Stop: 06/26/20 10:32 Bismuth Subsalicylate (Bismuth Subsalicylate Liqd 236 Ml) 15 ml PO PRN PRN PRN Reason: Loose Stool Stop: 06/23/20 18:20 Citalopram Hydrobromide (Citalopram 20 Mg Tab) 20 mg PO DAILY IVONE Stop: 06/24/20 08:59 Last Admin: 05/28/20 10:21 Dose: 20 mg Documented by: Haloperidol (Haloperidol 5 Mg Tab) 5 mg PO DAILY IVONE Stop: 06/24/20 08:59 Last Admin: 05/28/20 10:21 Dose: 5 mg Documented by: Haloperidol (Haloperidol 5 Mg Tab) 5 mg PO Q6H PRN PRN Reason: psychosis Stop: 06/25/20 20:50 Last Admin: 05/27/20 20:55 Dose: 5 mg Documented by: Hydroxyzine HCl (Hydroxyzine Hcl 25 Mg Tab) 50 mg PO HSZ PRN PRN Reason: Insomnia Stop: 06/23/20 18:20 Hydroxyzine HCl (Hydroxyzine Hcl 25 Mg Tab) 25 mg PO Q4H PRN PRN Reason: Anxiety Stop: 06/23/20 18:20 Lisinopril (Lisinopril 10 Mg Tab) 10 mg PO DAILY IVONE Stop: 06/24/20 08:59 Last Admin: 05/28/20 10:21 Dose: 10 mg Documented by: Magnesium Hydroxide (Magnesium Hydroxide Susp 30 Ml Udc) 30 ml PO DAILY PRN PRN Reason: Constipation Stop: 06/23/20 18:20 Metformin HCl (Metformin Hcl Er 500 Mg Tabcr) 1,000 mg PO QDB [facility] Stop: 06/25/20 08:59 Last Admin: 05/28/20 10:21 Dose: 1,000 mg Documented by: Metoprolol Tartrate (Metoprolol Tartrate 25 Mg Tab) 25 mg PO DAILY [facility] Stop: 06/24/20 08:59 Last Admin: 05/28/20 10:21 Dose: 25 mg Documented by: Miscellaneous (Remove Nicoderm Patch) 1 ea N/A DAILY@[id number] [facility] Stop: 06/24/20 08:58 Last Admin: 05/28/20 10:20 Dose: 1 ea Documented by: Nicotine (Nicotine 21 Mg/24 Hr Tdsy) 21 mg TD QAM [facility] Stop: 06/24/20 08:59 Last Admin: 05/28/20 10:21 Dose: 21 mg Documented by: Nitrofurantoin Macrocrystals (Nitrofurantoin Monohydrate 100 Mg Cap) 100 mg PO DAILY [facility] Stop: 05/30/20 08:59 Last Admin: 05/28/20 10:21 Dose: 100 mg Documented by: Simvastatin (Simvastatin 40 Mg Tab) 40 mg PO PM [facility] Stop: 06/23/20 20:59 Last Admin: 05/27/20 20:55 Dose: 40 mg Documented by: Sitagliptin Phosphate (Sitagliptin Phosphate 100 Mg Tab) 100 mg PO DAILY [facility] Stop: 06/24/20 08:59 Last Admin: 05/28/20 10:21 Dose: 100 mg Documented by: Sodium Chloride (Sodium Chloride 0.65% Na Soln 45 Ml ([place])) 1 - 2 sprays NA PRN PRN PRN Reason: Nasal Dryness/Congestion Stop: 06/23/20 18:20 Mental Health & Subst Abuse Tx Psychiatrist Name of Psychiatrist: Wendy Psychiatrist's Therapist Name of Therapist: None current Automotive Sales Representative Name of Automotive Sales Representative: None Post Discharge Appointments Primary Care Physician Name Of Family Doctor: Dr. Hill Primary Care Provider Appointment Comment: *call to scedule appt closer to discharge & they will give hospital dc appt Contact Information Discharge Discharge Address: [address], [address] (1) Schizophrenia Schizophrenia type: paranoid schizophrenia Qualified Code(s): F20.0 - Paranoi d schizophrenia
--- NOTE | 2020-05-28 18:26 | Electrocardiogram Report ---
Test Reason : Blood Pressure : / mmHG Vent. Rate : 106 BPM Atrial Rate : 106 BPM P-R Int : 140 ms QRS Dur : 082 ms QT Int : 340 ms P-R-T Axes : 084 080 088 degrees QTc Int : 451 ms Sinus tachycardia Biatrial enlargement Abnormal ECG When compared with ECG of 20-MAY-2020 16:51, No significant change was found Confirmed by Sam Sebastian ([id number]) on 05/28/2020 6:25:42 PM Referred By: REFERRED SELF Confirmed By:Sam Sebastian
[2020-05-28] MEDS: SIMVASTATIN 40 MG TAB PO SCH (21:01)
[2020-05-29] MEDS: NICOTINE 21 MG/24 HR TDSY TD SCH (09:30)
[2020-05-29] MEDS: metFORMIN HCL ER 500 MG TABCR PO SCH (09:31)
[2020-05-29] MEDS: ARIPiprazole 15 MG TAB PO SCH (09:31)
[2020-05-29] MEDS: CITALOPRAM 20 MG TAB PO SCH (09:31)
[2020-05-29] MEDS: METOPROLOL TARTRATE 25 MG TAB PO SCH (09:32)
[2020-05-29] MEDS: NITROFURANTOIN MONOHYDRATE 100 MG CAP PO SCH (09:32)
[2020-05-29] MEDS: SITagliptin PHOSPHATE 100 MG TAB PO SCH (09:32)
[2020-05-29] MEDS: haloperidoL 5 MG TAB PO SCH (09:32)
[2020-05-29] MEDS: lisinopril 10 MG TAB PO SCH (09:33)
--- NOTE | 2020-05-29 09:51 | Communication Note ---
Date of Service: May 29, 2020 Records from [facility] in [place], [place] - Received and Summarized below: Psychiatrist: Dr. Justyn Azevedo MD; Piedad Manuel APRN Diagnosis: Schizophrenia 05/18/2019 - Medication Management Appointment - Reports state patient was doing well overall with adding haloperidol 5mg qAM, having recently moved closer to her daughter. Past history suggested patient had a remote history of treatment with haloperidol, and could not tolerate dosing of quetiapine being reduced from 600mg. 08/25/2019 - Medication Management Appointment - Further reduction in quetiapine to 400mg qAM and 100mg qHS with reported stability. Thought process was reported to be clear with no evidence of psychosis. 02/23/2020 - Medication Management Appointment - Continues to be pleasant and cooperative. Reports thinking is clear without AH/VH. Reportedly broke leg is 2 places 11-weeks prior to this appointment, and lived with daughter during that time. Continued regimen of: quetiapine 400mg qAM and 100mg qHS, citalopram 20mg qAM, and haloperidol 5mg qAM.
--- NOTE | 2020-05-29 11:48 | Psychiatric Progress Note ---
Date of Service May 29, 2020 Impression / Recommendations Impression This 70-year-old woman with a known diagnosis of schizophrenia recently relocated from [facility] to [place], [place] in order to be close to several of her children as well as to several of her siblings. (She was born and raised in [place], [place], the fourth daughter of her parents' 9 children.) And she indicates that the provider that was prescribing her medications when she was living in [place] provided a sufficient supply for her to continue those medications here in [facility], until she became established with a new psychiatric provider. The patient had been admitted to the medical floor approximately 5 days ago because of hyponatremia. The exact cause of the hyponatremia is unknown, but the patient tells us that her "voices" were telling her to drink excessive amounts of water, and so she did. After her hyponatremia was resolved and she was considered stable and was sent home to continue her outpatient medications. However, the patient acknowledges that she had stopped taking her quetiapine and her Celexa, again, because the voices had told her to do so. She admits that she periodically stops her medications, and usually her decision is influenced by the content of her "voices." The patient was returned to the hospital on 05/24/2020 by one of her children. The patient's children are concerned because the patient, who [facility] alone [facility]" has not been able to care for her own physical needs, has seemed confused, and has resisted their efforts to get her to take her medications as prescribed. In addition to prominent auditory hallucinations, the patient reports that she has not been feeling safe and suspects that she is being followed or watched. She also reports that she believes that the "voices" are coming from actual entities, and it may be disadvantageous if she refuses to do what they say"as long as they do not tell me to do anything bad." She seems to have some insight into the connection between her taking medications and achieving relative stability, and, likewise, she does acknowledge that not taking her medications has resulted in an increase in the intensity and frequency of the auditory hallucinations. Further, she says that she understands that low serum sodium levels may be caused by excessive water intake, and she also understands that low serum sodium levels ca n be dangerous . She did say that she understood our recommendation that she consider taking a long-acting injectable antipsychotic medication such as haloperidol decanoate, Invega Sustenna, or Abilify Maintena. She has that she remembers that she used to take one of her medications by "about once a month" injection and she likes the convenience. The patient also seem to understand that taking her medication bimonthly injection may help prevent her from "listing to the voices" and stopping her medications when she should not. She has a very supportive family, and the current plan will be to change her over to an antipsychotic medication that is available as a long-acting depot. Because of her report that she was considered a possible candidate for a cardiac pacemaker, and because of the somewhat higher risk of QT interval prolongation associated with Invega, we will offer the patient a trial of aripiprazole 10 mg a day, titrated as tolerated to 15 mg a day and, after her scheduled dose for quetiapine 100 mg at bedtime on 05/25/2020, we will discontinue quetiapine in favor of Abilify. Also, an advantage of discontinuing quetiapine is that is known to to be associated with a somewhat higher risk of QTC prolongation. The goal will then be to switch the patient to a long-acting depot prior to discharge. Wraparound services, including case management and outpatient psychiatric treatment are also going to be necessary for the patient successful reentry into the community. (1) Schizophrenia: 05/25 -The patient has been admitted to the [facility] inpatient psychiatric unit. She has been referred and has begun to participate in individual, group, and recreational therapies. Family interventions are also planned. Aftercare planning has also already started, with dialogue between the treatment team and the patient's children. -Admission, her prescribed medications included Celexa 20 mg daily and quetiapine 300 mg in the morning and 100 mg at bedtime. While these medications may have been effective in the past, of the recurrent issue seems to be that she periodically stops taking these medications, apparently primarily because of command auditory hallucinations that may occur from time to time. Currently, the plan is to change the patient's antipsychotic medication to one that can be given in long-acting depot form. Invega has been considered, but there is a vague history provided by the patient of a possible plan to place her on a pacemaker. Her most recent EKG does not indicate an arrhythmia, and her QT interval was within normal limits. Nevertheless, aripiprazole may be preferable to paliperidone because of the slightly reduced risk of QTc interval prolongation and arrhythmia. However, paliperidone may be an option if the patient's response aripiprazole is not as hoped. We will also continue Celexa 20 mg a day. -EKG repeat on 05/28/2020 to monitor for QTC interval prolongation. -Check lipid levels. 05/26--reviewed. 05/27--titrate Abilify to 15 mg. If no immediate improvement consider retrial Seroquel since injectable is not particularly affordable for family. Daughter would still support injectable if only medication. Haldol prn. 05/28--doesn't seem to be improving, hard to know if was initially honeymooning or if also a sundowning component as tends to get worse on pm shift. If patient ultimately refuses antipsychotic medication she should be converted to an involuntary commitment as no longer voluntary and she is clearly unable to care for self outside of the hospital as frequently doesn't believe her children are real and has shown some aggressive acting out. She has a longstanding diagnosis of schizophrenia and has responded well in the past. It's my medical opinion that without antipsychotic medication she would represent a significant risk to herself or others within 30 days, particularly given her recent polydipsia and subsequent hyponatremia. Repeat sodium in am. 05/29 - Pt continue to demonstrate irritability, paranoia, and delusions - seeming to worsen since admission. Given that quetiapine had sustained the patient for several years - we will encourage patient resume the medication, likely will need higher doses that she had been taking prior to admission. We can also determine if interim titration of haloperidol would be beneficial as well until symptoms are improved. - Daughter admits she has been worried about the patient and she has noticed worsening of condition as well. - Will continue attempts to build rapport with the patient and encourage medication compliance. (2) Noncompliance with medication regimen: 05/25 -The patient admits to a long history of episodic nonadherence with outpatient psychiatric medications. While her adult children attempt to monitor the patient's medication adherence, it is reported that at times they cannot convince her to take her medications, and the patient says that the the reason that she has stopped taking her medication, at least recently, is that she is experiencing perceptual disturbances ("auditory hallucinations") that tell her to stop taking the medications. In fact, during the admission assessment interview the patient regularly stop speaking briefly, and then explained that she was "hearing a voice" and "trying not to listen to it." -The plan is to start the patient on aripiprazole 10 mg a day, possibly titrating to 50 mg as tolerated, and then converting to Abilify Maintena. Another option might be Invega Sustenna 05/26--reviewed. 05/29 - Pt is taking most medications with encouragement from staff - she was unwilling today engage in productive conversation regarding suggested medication adjustments. - May need to consider second opinion for medications Inventory Assets Strengths: . Supportive family. Cooperative. Good social skills. Needs: Resolution of psychosis. Improved medication adherence Risk Factors Assessment Male: No : Yes Do You Have Access To A Gun?: No Health Problems: Yes Mental Health Diagnoses: Yes Substance Use Disorders: No (Tobacco use disorder) Previous Attempt: Yes Previous Attempt; Highly Lethal: No (5 pills) Previous Attempt; Planned: No (Responding to a command auditory hallucination a number of years ago.) Previous Attempt; Didn't Tell Anyone: No Family History of Suicide: No Previous Psychiatric Hospitalization: Yes Hopelessness: No Smoker: Yes Protective Factors Assessment Pentecostal Beliefs: Yes ("[employer].") : No Responsible for Young Children: No Employed: No Stable Relationships: Yes Supportive Family: Yes Good Rapport with Provider: Yes Absence of Any Risk Factors Above: No Interval History Identifying Information 70-year-old female admitted voluntarily for inpatient psychiatric treatment on 05/24/2020 due to worsening psychosis, inability to care for self, and refusal of psychiatric medications and treatment as an outpatient. Chief Complaint "No. I won't talk to you." Review of Systems Notes Pt did not verbalize any physical complaints at this time. She was resistant to engage in in-depth conversation with this provider today. Sleep Information Total Hours of Sleep: 7 Meal Information Percent Meal Consumed - Breakfast: 90 Percent Meal Consumed - Lunch: 100 Percent Meal Consumed - Dinner: 80 Subjective Subjective Patient was seen & assessed and interval progress reviewed with nursing and social work. Staff report the patient has been intermittently refusing medications and has been more irritable recently. She does have rapport with certain staff. Pt is attending some group programming, but otherwise is generally withdrawn to her own activities. Pt was seen today to assess progress since admission. This provider introduced herself and her role as part of the treatment team. Pt declined to meet with this provider, stating "I won't talk to you. I don't trust you." When asked why the patient feels she cannot trust this provider, she states "I know you aren't who you say you are. You work for someone else." Pt could not provide information about who she believes this provider is working for. She declined to discuss medications, stating "I didn't need them before I came in, I don't need them now." Pt is able to recognize that things have been worsening since admission, but does not feel this is related to any medication changes. The patient was asked in numerous ways if she would be willing to meet with the provider later; however, she repeated declined to discuss further. In closing our conversation, the patient stated "I'll remember. I'll remember all of your faces." This provider later received information from our hospice social worker which suggested that the patient believed this provider to be a "plant" and that's why she was distrusting. Pt did state she would call her daughter to ensure her to not worry about her. Daughter is reportedly requesting updates from staff tomorrow. Physical Exam Psychiatric Orientation: alert and + guarded (irritable, uncooperative ) Apperance: appropriately dressed, appropriately groomed and appeared stated age Eye Contact: + fair eye contact Motor Behavior: steady gait and station (ambulates well with assistance from rolling walker) and no abnormal motor movements Speech: normal rate/rhythm/volume of speech (irritable tone, brief responses to questions) Affect: + irritable affect Mood: + irritable mood Thought Process: + concrete thought process Thought Content: + paranoid (distrusting of staff), + delusions and + persecution Hallucinations - Unknown, but likely. Patient unwilling to comment on this today Cognition: language grossly intact Insight: + impaired insight Judgement: + impaired judgement Vital Signs (Past 24 Hours) Last Vital Signs Temp 36.6 C 05/29/20 06:40 Pulse 106 H 05/29/20 06:41 Resp 16 05/29/20 06:40 BP 121/81 05/29/20 06:41 Pulse Ox 98 05/24/20 18:00 Results & Data ([facility]) Laboratory Results Laboratory Results - last 24 hr 05/29/20 07:27 Sodium 133 L Potassium 4.0 Chloride 100 Carbon Dioxide 26 Anion Gap 7.0 Current Inpatient Medications Current Inpatient Medications: Current Inpatient Medications Acetaminophen (Acetaminophen 325 Mg Tab) 650 mg PO Q4H PRN PRN Reason: Headache or Minor Fever Stop: 06/23/20 18:20 Al Hydrox/Mg Hydrox/Simethicone (Aluminum/Magnesium Susp 30 Ml Udc) 30 ml PO Q4H PRN PRN Reason: GI Upset Stop: 06/23/20 18:20 Aripiprazole (Aripiprazole 15 Mg Tab) 15 mg PO QAM IVONE Stop: 06/27/20 08:59 Last Admin: 05/29/20 09:31 Dose: 15 mg Documented by: Benztropine Mesylate (Benztropine Mesylate 1 Mg Tab) 1 mg PO BID PRN PRN Reason: Muscle Spasm Stop: 06/26/20 10:32 Bismuth Subsalicylate (Bismuth Subsalicylate Liqd 236 Ml) 15 ml PO PRN PRN PRN Reason: Loose Stool Stop: 06/23/20 18:20 Citalopram Hydrobromide (Citalopram 20 Mg Tab) 20 mg PO DAILY IVONE Stop: 06/24/20 08:59 Last Admin: 05/29/20 09:31 Dose: 20 mg Documented by: Haloperidol (Haloperidol 5 Mg Tab) 5 mg PO DAILY IVONE Stop: 06/24/20 08:59 Last Admin: 05/29/20 09:32 Dose: 5 mg Documented by: Haloperidol (Haloperidol 5 Mg Tab) 5 mg PO Q6H PRN PRN Reason: psychosis Stop: 06/25/20 20:50 Last Admin: 05/27/20 20:55 Dose: 5 mg Documented by: Hydroxyzine HCl (Hydroxyzine Hcl 25 Mg Tab) 50 mg PO HSZ PRN PRN Reason: Insomnia Stop: 06/23/20 18:20 Hydroxyzine HCl (Hydroxyzine Hcl 25 Mg Tab) 25 mg PO Q4H PRN PRN Reason: Anxiety Stop: 06/23/20 18:20 Lisinopril (Lisinopril 10 Mg Tab) 10 mg PO DAILY IVONE Stop: 06/24/20 08:59 Last Admin: 05/29/20 09:33 Dose: 10 mg Documented by: Magnesium Hydroxide (Magnesium Hydroxide Susp 30 Ml Udc) 30 ml PO DAILY PRN PRN Reason: Constipation Stop: 06/23/20 18:20 Metformin HCl (Metformin Hcl Er 500 Mg Tabcr) 1,000 mg PO QDB [facility] Stop: 06/25/20 08:59 Last Admin: 05/29/20 09:31 Dose: 1,000 mg Documented by: Metoprolol Tartrate (Metoprolol Tartrate 25 Mg Tab) 25 mg PO DAILY IVONE Stop: 06/24/20 08:59 Last Admin: 05/29/20 09:32 Dose: 25 mg Documented by: Miscellaneous (Remove Nicoderm Patch) 1 ea N/A DAILY@[id number] [facility] Stop: 06/24/20 08:58 Last Admin: 05/29/20 09:35 Dose: 1 ea Documented by: Nicotine (Nicotine 21 Mg/24 Hr Tdsy) 21 mg TD QAM [facility] Stop: 06/24/20 08:59 Last Admin: 05/29/20 09:30 Dose: 21 mg Documented by: Nitrofurantoin Macrocrystals (Nitrofurantoin Monohydrate 100 Mg Cap) 100 mg PO DAILY [facility] Stop: 05/30/20 08:59 Last Admin: 05/29/20 09:32 Dose: 100 mg Documented by: Simvastatin (Simvastatin 40 Mg Tab) 40 mg PO PM [facility] Stop: 06/23/20 20:59 Last Admin: 05/28/20 21:01 Dose: Not Given Documented by: Sitagliptin Phosphate (Sitagliptin Phosphate 100 Mg Tab) 100 mg PO DAILY [facility] Stop: 06/24/20 08:59 Last Admin: 05/29/20 09:32 Dose: 100 mg Documented by: Sodium Chloride (Sodium Chloride 0.65% Na Soln 45 Ml ([place])) 1 - 2 sprays NA PRN PRN PRN Reason: Nasal Dryness/Congestion Stop: 06/23/20 18:20 Mental Health & Subst Abuse Tx Psychiatrist Name of Psychiatrist: Wendy Psychiatrist's Therapist Name of Therapist: None current Program Checker Name of Program Checker: None Post Discharge Appointments Primary Care Physician Name Of Family Doctor: Dr. Hill Primary Care Provider Appointment Comment: *call to [facility] appt closer to discharge & they will give hospital dc appt Contact Information Discharge Discharge Address: [address], [facility] [address] (1) Schizophrenia Schizophrenia type: paranoid schizophrenia Qualified Code(s): F20.0 - Paranoid schizophrenia
[2020-05-29] MEDS: SIMVASTATIN 40 MG TAB PO SCH (20:43)
[2020-05-29] MEDS ORDERED: QUEtiapine FUMARATE 100 MG TABLET PO SCH (22:00)
--- NOTE | 2020-05-30 08:47 | Psychiatric Progress Note ---
Date of Service May 30, 2020 Impression / Recommendations Impression 70-year-old female with a history of schizophrenia who recently relocated to [place] of state in order to be closer to family. She had not yet arranged outpatient mental health services here, and was taking medications prescribed by her psychiatrist in [place] (quetiapine 400 mg every morning and 100 mg nightly, citalopram 20 mg every morning, and haloperidol 5 mg every morning). She was hospitalized medically 05/20/2020 for UTI and hyponatremia with a sodium of 122, and at that time was paranoid and had not been taking her medications as prescribed. She was discharged 05/22/2020, and return to the ER 2 days later with command auditory hallucinations telling her not to take her medications. Her daughter brought her in and reported the patient had been decompensating since discharge from the medical floor, was refusing to take medications, behavior was disorganized, and her children were unable to manage her ADLs. She is admitted voluntarily, and initially was trialed on aripiprazole with a plan to transition to [facility], but worsened on this medication. After discussion with the daughter today, we will pursue a trial of haloperidol with a plan to start Haldol Decanoate if it is effective and well-tolerated. She has been [facility] to the [facility] for a case finisher and will have an intake on Thursday, and has also been referred to [facility] for outpatient mental health services. Inpat ient treatment is medically necessary due to the severity of her symptoms and inability to provide for her own basic needs without the care and assistance of others as a direct result of her poorly controlled psychotic illness. (1) Schizophrenia: 05/25 -The patient has been admitted to the [facility] inpatient psychiatric unit. She has been referred and has begun to participate in individual, group, and recreational therapies. Family interventions are also planned. Aftercare planning has also already started, with dialogue between the treatment team and the patient's children. -Admission, her prescribed medications included Celexa 20 mg daily and quetiapine 300 mg in the morning and 100 mg at bedtime. While these medications may have been effective in the past, of the recurrent issue seems to be that she periodically stops taking these medications, apparently primarily because of command auditory hallucinations that may occur from time to time. Currently, the plan is to change the patient's antipsychotic medication to one that can be given in long-acting depot form. Invega has been considered, but there is a vague history provided by the patient of a possible plan to place her on a pacemaker. Her most recent EKG does not indicate an arrhythmia, and her QT interval was within normal limits. Nevertheless, aripiprazole may be preferable to paliperidone because of the slightly reduced risk of QTc interval prolongation and arrhythmia. However, paliperidone may be an option if the patient's response aripiprazole is not as hoped. We will also continue Celexa 20 mg a day. -EKG repeat on 05/28/2020 to monitor for QTC interval prolongation. -Check lipid levels. 05/26--reviewed. 05/27--titrate Abilify to 15 mg. If no immediate improvement consider retrial Seroquel since injectable is not particularly affordable for family. Daughter would still support injectable if only medication. Haldol prn. 05/28--doesn't seem to be improving, hard to know if was initially honeymooning or if also a sundowning component as tends to get worse on pm shift. If patient ultimately refuses antipsychotic medication she should be converted to an involuntary commitment as no longer voluntary and she is clearly unable to care for self outside of the hospital as frequently doesn't believe her children are real and has shown some aggressive acting out. She has a longstanding diagnosis of schizophrenia and has responded well in the past. It's my medical opinion that without antipsychotic medication she would represent a significant risk to herself or others within 30 days, particularly given her recent polydipsia and subsequent hyponatremia. Repeat sodium in am. 05/29 - Pt continue to demonstrate irritability, paranoia, and delusions - seeming to worsen since admission. Given that quetiapine had sustained the patient for several years - we will encourage patient resume the medication, likely will n eed higher doses that she had been taking prior to admission. We can also determine if interim titration of haloperidol would be beneficial as well until symptoms are improved. - Daughter admits she has been worried about the patient and she has noticed worsening of condition as well. - Will continue attempts to build rapport with the patient and encourage medication compliance. 05/30 -patient remains irritable and preoccupied with delusions of persecution involving hospital staff. After discussion with her daughter, and given concerns for poor medication adherence/confusion and living alone, we will titrate her haloperidol, while discontinuing aripiprazole and tapering off quetiapine, with a plan to transition to Haldol Decanoate if it is effective. -Referred to the [facility] for a BCM, initial intake will occur on Thursday. Referred to [facility] for outpatient services. Care reviewed and discussed with daughter as above. (2) Noncompliance with medication regimen: 05/25 -The patient admits to a long history of episodic nonadherence with outpatient psychiatric medications. While her adult children attempt to monitor the patient's medication adherence, it is reported that at times they cannot convince her to take her medications, and the patient says that the the reason that she has stopped taking her medication, at least recently, is that she is experiencing perceptual disturbances ("auditory hallucinations") that tell her to stop taking the medications. In fact, during the admission assessment interview the patient regularly stop speaking briefly, and then explained that she was "hearing a voice" and "trying not to listen to it." -The plan is to start the patient on aripiprazole 10 mg a day, possibly titrating to 50 mg as tolerated, and then converting to Abilify Maintena. Another option might be Invega Sustenna 05/26--reviewed. 05/29 - Pt is taking most medications with encouragement from staff - she was unwilling today engage in productive conversation regarding suggested medication adjustments. - May need to consider second opinion for medications Inventory Assets Strengths: . Supportive family. Cooperative. Good social skills. Needs: Resolution of psychosis. Improved medication adherence Risk Factors Assessment Male: No : Yes Do You Have Access To A Gun?: No Health Problems: Yes Mental Health Diagnoses: Yes Substance Use Disorders: No (Tobacco use disorder) Previous Attempt: Yes Previous Attempt; Highly Lethal: No (5 pills) Previous Attempt; Planned: No (Responding to a command auditory hallucination a number of years ago.) Previous Attempt; Didn't Tell Anyone: No Family History of Suicide: No Previous Psychiatric Hospitalization: Yes Hopelessness: No Smoker: Yes Protective Factors Assessment Yazdanism Beliefs: Yes ("Mosque.") : No Responsible for Young Children: No Employed: No Stable Relationships: Yes Supportive Family: Yes Good Rapport with Provider: Yes Absence of Any Risk Factors Above: No Interval History Identifying Information 70-year-old female admitted voluntarily for inpatient psychiatric treatment on 05/24/2020 due to worsening psychosis, inability to care for self, and refusal of psychiatric medications and treatment as an outpatient. Chief Complaint "Not too good". Review of Systems Sleep Information Total Hours of Sleep: 7.75 Sleep Comments: pt on q-15 minute checks Meal Information Percent Meal Consumed - Breakfast: 90 Percent Meal Consumed - Lunch: 90 Percent Meal Consumed - Dinner: 25 Subjective Subjective Patient was seen & assessed and interval progress reviewed with treatment team. Staff report she has been irritable and paranoid, going to groups and participating, and said she was depressed. Her daughter was contacted and was upset as patient was doing poorly, worried about whether she would recover. She requires staff encouragement to take medications, refusing them this morning and insisting that the nurse was "not who she says she is." She seems to be more trusting of males, and took the medications when a male staff offered them. A referral was made to the [facility] for a BCM, and they will come do her intake on 06/01/2020. On my assessment, she refused to go to her room and insisted on meeting in the day room. She would not make eye contact, staring at the floor, and refused to answer multiple questions, or would just say she did not know. She answered "I don't know" when asked to describe her mood, rated her mood on a scale of 0-10, and when asked about her thoughts. She said she could not recall what she ate for breakfast or how she slept last night. She did say appetite is "not real good." She endorsed auditory hallucinations of voices which are constant, irritating, and make it difficult for her to focus. She said she cannot make out what they are saying, does not recognize the voices, and could not tell me if they were male or female and how many there were. She denies command hallucinations and suicidal thoughts. She became abruptly hostile, stating "You fuckers are all gonna hang yourselves, you're all involved in it! I don't trust any of you bitches!" She said she does not know where she is, the name of the [facility], hospital, or what year it is. She became increasingly uncooperative and agitated, insisting that I am not a doctor. She says she trusts her family, "but I don't trust any of you!" Spoke to patient's daughter Renae at her request to update her on patient's progress. Discussed her decompensation over the past few days, and plan to stop Abilify and resume Seroquel. She has been telling patient's daughter that the voices she's hearing are telling her what to say, and she seems distracted by them, unable to remember basic things such as what she had for breakfast. Reviewed her LOS and aftercare planning. She would like the patient to be started on an RUVALCABA if possible, although notes that in the past she has always taken her po meds regularly (daughter would fill a weekly pillbox for her). She has tolerated Haldol well in the past. Recently she was not adherent (just prior to this hospitalization), and said she was going to throw all of her pills out. Her daughter is assisting her to apply for supplemental MA and thinks she will meet criteria. Physical Exam Psychiatric Orientation: alert; + uncooperative Says "I don't know" to all orientation questions, unclear if she is disoriented or just uncooperative. Apperance: appropriately dressed (Blue jeans and a fleece jacket. Short corral hair, wearing glasses.) Seated in no acute distress, hunched over, staring at the floor. Eye Contact: + poor eye contact Motor Behavior: steady gait and station (Walks slowly, with a walker) Minimal, angry, irritated tone Affect: + irritable affect, + constricted affect and mood congruent with affect "Not too good." Thought Process: goal directed thought process Refuses to answer most questions Thought Content: + paranoid, + delusions and + persecution Suicidal Thoughts: denies suicidal thoughts Homicidal Thoughts: denies homicidal thoughts Hallucinations: + auditory hallucinations Cognition: + recent memory not intact and + attention not intact Insight: + poor insight Judgement: + poor judgement Vital Signs (Past 24 Hours) Last Vital Signs Temp 36.6 C 05/30/20 06:40 Pulse 111 H 05/30/20 06:41 Resp 16 05/30/20 06:40 BP 114/46 L 05/30/20 06:41 Pulse Ox 98 05/24/20 18:00 Results & Data ([facility]) Current Inpatient Medications Current Inpatient Medications: Current Inpatient Medications Acetaminophen (Acetaminophen 325 Mg Tab) 650 mg PO Q4H PRN PRN Reason: Headache or Minor Fever Stop: 06/23/20 18:20 Al Hydrox/Mg Hydrox/Simethicone (Aluminum/Magnesium Susp 30 Ml Udc) 30 ml PO Q4H PRN PRN Reason: GI Upset Stop: 06/23/20 18:20 Aripiprazole (Aripiprazole 15 Mg Tab) 7.5 mg PO QAM IVONE Stop: 06/29/20 08:59 Benztropine Mesylate (Benztropine Mesylate 1 Mg Tab) 1 mg PO BID PRN PRN Reason: Muscle Spasm Stop: 06/26/20 10:32 Bismuth Subsalicylate (Bismuth Subsalicylate Liqd 236 Ml) 15 ml PO PRN PRN PRN Reason: Loose Stool Stop: 06/23/20 18:20 Citalopram Hydrobromide (Citalopram 20 Mg Tab) 20 mg PO DAILY [facility] Stop: 06/24/20 08:59 Last Admin: 05/29/20 09:31 Dose: 20 mg Documented by: Haloperidol (Haloperidol 5 Mg Tab) 5 mg PO DAILY IVONE Stop: 06/24/20 08:59 Last Admin: 05/29/20 09:32 Dose: 5 mg Documented by: Haloperidol (Haloperidol 5 Mg Tab) 5 mg PO Q6H PRN PRN Reason: psychosis Stop: 06/25/20 20:50 Last Admin: 05/27/20 20:55 Dose: 5 mg Documented by: Hydroxyzine HCl (Hydroxyzine Hcl 25 Mg Tab) 50 mg PO HSZ PRN PRN Reason: Insomnia Stop: 06/23/20 18:20 Hydroxyzine HCl (Hydroxyzine Hcl 25 Mg Tab) 25 mg PO Q4H PRN PRN Reason: Anxiety Stop: 06/23/20 18:20 Lisinopril (Lisinopril 10 Mg Tab) 10 mg PO DAILY IVONE Stop: 06/24/20 08:59 Last Admin: 05/29/20 09:33 Dose: 10 mg Documented by: Magnesium Hydroxide (Magnesium Hydroxide Susp 30 Ml Udc) 30 ml PO DAILY PRN PRN Reason: Constipation Stop: 06/23/20 18:20 Metformin HCl (Metformin Hcl Er 500 Mg Tabcr) 1,000 mg PO QDB IVONE Stop: 06/25/20 08:59 Last Admin: 05/29/20 09:31 Dose: 1,000 mg Documented by: Metoprolol Tartrate (Metoprolol Tartrate 25 Mg Tab) 25 mg PO DAILY [facility] Stop: 06/24/20 08:59 Last Admin: 05/29/20 09:32 Dose: 25 mg Documented by: Miscellaneous (Remove Nicoderm Patch) 1 ea N/A DAILY@[id number] [facility] Stop: 06/24/20 08:58 Last Admin: 05/29/20 09:35 Dose: 1 ea Documented by: Nicotine (Nicotine 21 Mg/24 Hr Tdsy) 21 mg TD QAM [facility] Stop: 06/24/20 08:59 Last Admin: 05/29/20 09:30 Dose: 21 mg Documented by: Nitrofurantoin Macrocrystals (Nitrofurantoin Monohydrate 100 Mg Cap) 100 mg PO DAILY [facility] Stop: 05/30/20 08:59 Last Admin: 05/29/20 09:32 Dose: 100 mg Documented by: Quetiapine Fumarate (Quetiapine Fumarate 100 Mg Tablet) 100 mg PO HS [facility] Stop: 06/28/20 21:59 Last Admin: 05/29/20 20:43 Dose: 100 mg Documented by: Quetiapine Fumarate (Quetiapine Fumarate 200 Mg Tab) 200 mg PO QAM [facility] Stop: 06/29/20 08:59 Simvastatin (Simvastatin 40 Mg Tab) 40 mg PO PM [facility] Stop: 06/23/20 20:59 Last Admin: 05/29/20 20:43 Dose: 40 mg Documented by: Sitagliptin Phosphate (Sitagliptin Phosphate 100 Mg Tab) 100 mg PO DAILY [facility] Stop: 06/24/20 08:59 Last Admin: 05/29/20 09:32 Dose: 100 mg Documented by: Sodium Chloride (Sodium Chloride 0.65% Na Soln 45 Ml ([place])) 1 - 2 sprays NA PRN PRN PRN Reason: Nasal Dryness/Congestion Stop: 06/23/20 18:20 Mental Health & Subst Abuse Tx Psychiatrist Name of Psychiatrist: Wendy Psychiatrist's Therapist Name of Therapist: None current Interpreter Deaf Name of Interpreter Deaf: None Post Discharge Appointments Primary Care Physician Name Of Family Doctor: Dr. Hill Primary Care Provider Appointment Comment: *call to scedule appt closer to discharge & they will give hospital dc appt Contact Information Discharge Discharge Address: [facility] [place] [address], [facility] [address] (1) Schizophrenia Schizophrenia type: paranoid schizophrenia Qualified Code(s): F20.0 - Paranoid schizophrenia
[2020-05-30] MEDS: CITALOPRAM 20 MG TAB PO SCH (08:55)
[2020-05-30] MEDS: SITagliptin PHOSPHATE 100 MG TAB PO SCH (08:56)
[2020-05-30] MEDS: metFORMIN HCL ER 500 MG TABCR PO SCH (08:56)
[2020-05-30] MEDS: haloperidoL 5 MG TAB PO SCH ×2 (08:56→20:21)
[2020-05-30] MEDS: METOPROLOL TARTRATE 25 MG TAB PO SCH (08:56)
[2020-05-30] MEDS: NICOTINE 21 MG/24 HR TDSY TD SCH (08:56)
[2020-05-30] MEDS: lisinopril 10 MG TAB PO SCH (08:57)
[2020-05-30] MEDS ORDERED: ARIPiprazole 15 MG TAB PO SCH (09:00)
[2020-05-30] MEDS ORDERED: QUEtiapine FUMARATE 200 MG TAB PO SCH (09:00)
[2020-05-30] MEDS ORDERED: QUEtiapine FUMARATE 100 MG TABLET PO SCH (14:00)
[2020-05-30] MEDS: SIMVASTATIN 40 MG TAB PO SCH (20:21)
[2020-05-31] MEDS: METOPROLOL TARTRATE 25 MG TAB PO SCH (08:53)
[2020-05-31] MEDS: CITALOPRAM 20 MG TAB PO SCH (08:53)
[2020-05-31] MEDS: SITagliptin PHOSPHATE 100 MG TAB PO SCH (08:53)
[2020-05-31] MEDS: haloperidoL 5 MG TAB PO SCH ×2 (08:53→20:33)
[2020-05-31] MEDS: metFORMIN HCL ER 500 MG TABCR PO SCH (08:53)
[2020-05-31] MEDS: NICOTINE 21 MG/24 HR TDSY TD SCH (08:54)
[2020-05-31] MEDS: lisinopril 10 MG TAB PO SCH (08:54)
[2020-05-31] MEDS: QUEtiapine FUMARATE 100 MG TABLET PO SCH (08:54)
--- NOTE | 2020-05-31 11:31 | Psychiatric Progress Note ---
Date of Service May 31, 2020 Impression / Recommendations Impression 70-year-old female with a history of schizophrenia who recently relocated to [place] from [place] of state in order to be closer to family. She had not yet arranged outpatient mental health services here, and was taking medications prescribed by her psychiatrist in [place] (quetiapine 400 mg every morning and 100 mg nightly, citalopram 20 mg every morning, and haloperidol 5 mg every morning). She was hospitalized medically 05/20/2020 for UTI and hyponatremia with a sodium of 122, and at that time was paranoid and had not been taking her medications as prescribed. She was discharged 05/22/2020, and return to the ER 2 days later with command auditory hallucinations telling her not to take her medications. Her daughter brought her in and reported the patient had been decompensating since discharge from the medical floor, was refusing to take medications, behavior was disorganized, and her children were unable to manage her ADLs. She is admitted voluntarily, and initially was trialed on aripiprazole with a plan to transition to [facility], but worsened on this medication. After discussion with the daughter, new plan was to pursue a trial of haloperidol with a plan to start Haldol Decanoate if it is effective and well-tolerated. She has been referred to the [facility] for a director case and will have an intake on Thursday, and has also been referred to [facility] for outpatient mental health services. Inp atient treatment is medically necessary due to the severity of her symptoms and inability to provide for her own basic needs without the care and assistance of others as a direct result of her poorly controlled psychotic illness. (1) Schizophrenia: 05/25 -The patient has been admitted to the [facility] inpatient psychiatric unit. She has been referred and has begun to participate in individual, group, and recreational therapies. Family interventions are also planned. Aftercare planning has also already started, with dialogue between the treatment team and the patient's children. -Admission, her prescribed medications included Celexa 20 mg daily and quetiapine 300 mg in the morning and 100 mg at bedtime. While these medications may have been effective in the past, of the recurrent issue seems to be that she periodically stops taking these medications, apparently primarily because of command auditory hallucinations that may occur from time to time. Currently, the plan is to change the patient's antipsychotic medication to one that can be given in long-acting depot form. Invega has been considered, but there is a vague history provided by the patient of a possible plan to place her on a pacemaker. Her most recent EKG does not indicate an arrhythmia, and her QT interval was within normal limits. Nevertheless, aripiprazole may be preferable to paliperidone because of the slightly reduced risk of QTc interval prolongation and arrhythmia. However, paliperidone may be an option if the patient's response aripiprazole is not as hoped. We will also continue Celexa 20 mg a day. -EKG repeat on 05/28/2020 to monitor for QTC interval prolongation. -Check lipid levels. 05/26--reviewed. 05/27--titrate Abilify to 15 mg. If no immediate improvement consider retrial Seroquel since injectable is not particularly affordable for family. Daughter would still support injectable if only medication. Haldol prn. 05/28--doesn't seem to be improving, hard to know if was initially honeymooning or if also a sundowning component as tends to get worse on pm shift. If patient ultimately refuses antipsychotic medication she should be converted to an involuntary commitment as no longer voluntary and she is clearly unable to care for self outside of the hospital as frequently doesn't believe her children are real and has shown some aggressive acting out. She has a longstanding diagnosis of schizophrenia and has responded well in the past. It's my medical opinion that without antipsychotic medication she would represent a significant risk to herself or others within 30 days, particularly given her recent polydipsia and subsequent hyponatremia. Repeat sodium in am. 05/29 - Pt continue to demonstrate irritability, paranoia, and delusions - seeming to worsen since admission. Given that quetiapine had sustained the patient for several years - we will encourage patient resume the medication, likely will need higher doses that she had been taking prior to admission. We can also determine if interim titration of haloperidol would be beneficial as well until symptoms are improved. - Daughter admits she has been worried about the patient and she has noticed worsening of condition as well. - Will continue attempts to build rapport with the patient and encourage medication compliance. 05/30 -patient remains irritable and preoccupied with delusions of persecution involving hospital staff. After discussion with her daughter, and given concerns for poor medication adherence/confusion and living alone, we will titrate her haloperidol, while discontinuing aripiprazole and tapering off quetiapine, with a plan to transition to Haldol Decanoate if it is effective. -Referred to the [facility] for a BCM, initial intake will occur on Thursday. Referred to [facility] for outpatient services. Care reviewed and discussed with daughter as above. 05/31 - Pt continues to be delusional/paranoid and highly irritable with female staff. Pt continues to verbalize distrust toward numerous female staff but talks freely with many of the males. - Will titrate HS dosing of haloperidol to 10mg this evening, continue 5mg qAM dose. Continue low-dose quetiapine and citalopram at current doses. - [facility] intake tomorrow - patient has been referred for services through [facility], but no appointment times have been communicated to our team. (2) Noncompliance with medication regimen: 05/25 -The patient admits to a long history of episodic nonadherence with outpatient psychiatric medications. While her adult children attempt to monitor the patient's medication adherence, it is reported that at times they cannot convince her to take her medications, and the patient says that the the reason that she has stopped taking her medication, at least recently, is that she is experiencing perceptual disturbances ("auditory hallucinations") that tell her to stop taking the medications. In fact, during the admission assessment interview the patient regularly stop speaking briefly, and then explained that she was "hearing a voice" and "trying not to listen to it." -The plan is to start the patient on aripiprazole 10 mg a day, possibly titrating to 50 mg as tolerated, and then converting to Abilify Maintena. Another option might be Invega Sustenna 05/26--reviewed. 05/29 - Pt is taking most medications with encouragement from staff - she was unwilling today engage in productive conversation regarding suggested medication adjustments. - May need to consider second opinion for medications 05/31 - Medication recommendations were discussed with tony's daughter yesterday - given daughter's reasonable desire for medication avaiable in RUVALCABA form, will continue to titrate oral haloperidol and consider conversion to Haldol Decanoate. - Pt continues to be irritable with some staff, but has been taking most medications ordered Inventory Assets Strengths: . Supportive family. Cooperative. Good social skills. Needs: Resolution of psychosis. Improved medication adherence Risk Factors Assessment Male: No : Yes Do You Have Access To A Gun?: No Health Problems: Yes Mental Health Diagnoses: Yes Substance Use Disorders: No (Tobacco use disorder) Previous Attempt: Yes Previous Attempt; Highly Lethal: No (5 pills) Previous Attempt; Planned: No (Responding to a command auditory hallucination a number of years ago.) Previous Attempt; Didn't Tell Anyone: No Family History of Suicide: No Previous Psychiatric Hospitalization: Yes Hopelessness: No Smoker: Yes Protective Factors Assessment Adventist Beliefs: Yes ("Hinduism.") : No Responsible for Young Children: No Employed: No Stable Relationships: Yes Supportive Family: Yes Good Rapport with Provider: Yes Absence of Any Risk Factors Above: No Interval History Identifying Information 70-year-old female admitted voluntarily for inpatient psychiatric treatment on 05/24/2020 due to worsening psychosis, inability to care for self, and refusal of psychiatric medications and treatment as an outpatient. Chief Complaint "No..." Review of Systems Notes Pt continues to be unwilling to participate in productive conversation with providers and many staff. She does not verbalize any physical complaints, and in general refuses to participate with ROS. Sleep Information Total Hours of Sleep: 5.75 Sleep Comments: pt on q-15 minute checks Meal Information Percent Meal Consumed - Breakfast: 80 Percent Meal Consumed - Lunch: 100 Percent Meal Consumed - Dinner: 100 Subjective Subjective Patient was seen & assessed and interval progress reviewed with nursing and social work. Staff report the patient continues to be irritable with most of the female staff on the unit. She has been taking her scheduled medication. Medication changes were reviewed with the patient's daughter, who agrees and continues to be in favor of an RUVALCABA. Numerous attempts were made to meet with patient throughout the day. Unfortunately, the patient continues to verbalize that she does not trust many staff members and providers, and therefore interactions are generally brief and the patient is generally dismissive. Details of the most lengthy conversation include this provider requesting to briefly meeting with the patient. The patient responded by simply stating "no..." This provider inquired if there was a better time that suited the patient. She stated "I don't trust you." Pt then stated "I know you're not who you say you are." This provider was unable to gather any additional insight as to why the patient feels she cannot trust staff. This provider stated she would try to meet with the patient later in the afternoon, to which she responded "don't waste you're time, I'm not going to be talking to you." Pt did not verba lize any complaints. Several additional attempts were made today to engage patient in light conversation, they were unsuccessful and patient appears to still distrust this provider and demonstrates irritable affect. Physical Exam Psychiatric Orientation: alert and + guarded (uncooperative and irritable) Apperance: appropriately dressed, appropriately groomed and appeared stated age Eye Contact: + poor eye contact (seems to intentionally be avoiding direct eye contact) Motor Behavior: steady gait and station and no abnormal motor movements Speech: nonspontaneous, brief and dismissive responses to questions. Some sta ff report, however, that patient is having meaningful conversations with the people she feels she can trust at this time. Affect: + irritable affect and + constricted affect Thought Content: + paranoid, + delusions and + persecution Insight: + severely impaired insight Judgement: + severely impaired judgement Vital Signs (Past 24 Hours) Last Vital Signs Temp 37.1 C 05/31/20 06:39 Pulse 108 H 05/31/20 06:40 Resp 16 05/31/20 06:39 BP 131/77 05/31/20 06:40 Pulse Ox 98 05/24/20 18:00 Results & Data ([facility]) Current Inpatient Medications Current Inpatient Medications: Current Inpatient Medications Acetaminophen (Acetaminophen 325 Mg Tab) 650 mg PO Q4H PRN PRN Reason: Headache or Minor Fever Stop: 06/23/20 18:20 Al Hydrox/Mg Hydrox/Simethicone (Aluminum/Magnesium Susp 30 Ml Udc) 30 ml PO Q4H PRN PRN Reason: GI Upset Stop: 06/23/20 18:20 Benztropine Mesylate (Benztropine Mesylate 1 Mg Tab) 1 mg PO BID PRN PRN Reason: Muscle Spasm Stop: 06/26/20 10:32 Bismuth Subsalicylate (Bismuth Subsalicylate Liqd 236 Ml) 15 ml PO PRN PRN PRN Reason: Loose Stool Stop: 06/23/20 18:20 Citalopram Hydrobromide (Citalopram 20 Mg Tab) 20 mg PO DAILY [facility] Stop: 06/24/20 08:59 Last Admin: 05/31/20 08:53 Dose: 20 mg Documented by: Haloperidol (Haloperidol 5 Mg Tab) 5 mg PO Q6H PRN PRN Reason: psychosis Stop: 06/25/20 20:50 Last Admin: 05/27/20 20:55 Dose: 5 mg Documented by: Haloperidol (Haloperidol 5 Mg Tab) 5 mg PO BID [facility] Stop: 06/29/20 20:59 Last Admin: 05/31/20 08:53 Dose: 5 mg Documented by: Hydroxyzine HCl (Hydroxyzine Hcl 25 Mg Tab) 50 mg PO HSZ PRN PRN Reason: Insomnia Stop: 06/23/20 18:20 Hydroxyzine HCl (Hydroxyzine Hcl 25 Mg Tab) 25 mg PO Q4H PRN PRN Reason: Anxiety Stop: 06/23/20 18:20 Lisinopril (Lisinopril 10 Mg Tab) 10 mg PO DAILY [facility] Stop: 06/24/20 08:59 Last Admin: 05/31/20 08:54 Dose: 10 mg Documented by: Magnesium Hydroxide (Magnesium Hydroxide Susp 30 Ml Udc) 30 ml PO DAILY PRN PRN Reason: Constipation Stop: 06/23/20 18:20 Metformin HCl (Metformin Hcl Er 500 Mg Tabcr) 1,000 mg PO QDB [facility] Stop: 06/25/20 08:59 Last Admin: 05/31/20 08:53 Dose: 1,000 mg Documented by: Metoprolol Tartrate (Metoprolol Tartrate 25 Mg Tab) 25 mg PO DAILY [facility] Stop: 06/24/20 08:59 Last Admin: 05/31/20 08:53 Dose: 25 mg Documented by: Miscellaneous (Remove Nicoderm Patch) 1 ea N/A DAILY@[id number] [facility] Stop: 06/24/20 08:58 Last Admin: 05/31/20 08:52 Dose: 1 ea Documented by: Nicotine (Nicotine 21 Mg/24 Hr Tdsy) 21 mg TD QAM [facility] Stop: 06/24/20 08:59 Last Admin: 05/31/20 08:54 Dose: 21 mg Documented by: Quetiapine Fumarate (Quetiapine Fumarate 100 Mg Tablet) 100 mg PO QAM [facility] Stop: 06/30/20 08:59 Last Admin: 05/31/20 08:54 Dose: 100 mg Documented by: Simvastatin (Simvastatin 40 Mg Tab) 40 mg PO PM IVONE Stop: 06/23/20 20:59 Last Admin: 05/30/20 20:21 Dose: 40 mg Documented by: Sitagliptin Phosphate (Sitagliptin Phosphate 100 Mg Tab) 100 mg PO DAILY IVONE Stop: 06/24/20 08:59 Last Admin: 05/31/20 08:53 Dose: 100 mg Documented by: Sodium Chloride (Sodium Chloride 0.65% Na Soln 45 Ml ([place])) 1 - 2 sprays NA PRN PRN PRN Reason: Nasal Dryness/Congestion Stop: 06/23/20 18:20 Mental Health & Subst Abuse Tx Psychiatrist Name of Psychiatrist: Wendy Psychiatrist's Therapist Name of Therapist: None current Research Advisor Name of Research Advisor: None Post Discharge Appointments Primary Care Physician Name Of Family Doctor: Dr. Hill Primary Care Provider Appointment Comment: *call to [facility] [place], [place] appt closer to discharge & they will give hospital dc appt Contact Information Discharge Discharge Address: [facility] [address] (1) Schizophrenia Schizophrenia type: paranoid schizophrenia Qualified Code(s): F20.0 - Paranoid schizophrenia
[2020-05-31] MEDS: SIMVASTATIN 40 MG TAB PO SCH (20:33)
[2020-06-01] MEDS ORDERED: haloperidoL 5 MG TAB PO SCH (09:00)
[2020-06-01] MEDS: metFORMIN HCL ER 500 MG TABCR PO SCH (09:26)
[2020-06-01] MEDS: CITALOPRAM 20 MG TAB PO SCH (09:26)
[2020-06-01] MEDS: lisinopril 10 MG TAB PO SCH (09:26)
[2020-06-01] MEDS: QUEtiapine FUMARATE 100 MG TABLET PO SCH ×2 (09:26→20:40)
[2020-06-01] MEDS: METOPROLOL TARTRATE 25 MG TAB PO SCH (09:26)
[2020-06-01] MEDS: NICOTINE 21 MG/24 HR TDSY TD SCH (09:33)
[2020-06-01] MEDS: SITagliptin PHOSPHATE 100 MG TAB PO SCH (10:00)
[2020-06-01] MEDS ORDERED: QUEtiapine FUMARATE 200 MG TAB PO ONE (11:26)
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
[2020-06-01] MEDS: haloperidoL 5 MG TAB PO SCH (20:40)
[2020-06-01] MEDS: SIMVASTATIN 40 MG TAB PO SCH (20:40)
[2020-06-02] MEDS: metFORMIN HCL ER 500 MG TABCR PO SCH (08:48)
[2020-06-02] MEDS: haloperidoL 5 MG TAB PO SCH ×2 (08:48→20:33)
[2020-06-02] MEDS: CITALOPRAM 20 MG TAB PO SCH (08:48)
[2020-06-02] MEDS: SITagliptin PHOSPHATE 100 MG TAB PO SCH (08:48)
[2020-06-02] MEDS: NICOTINE 21 MG/24 HR TDSY TD SCH (08:49)
[2020-06-02] MEDS: METOPROLOL TARTRATE 25 MG TAB PO SCH (08:49)
[2020-06-02] MEDS: lisinopril 10 MG TAB PO SCH (08:49)
[2020-06-02] MEDS ORDERED: QUEtiapine FUMARATE 300 MG TABLET PO SCH (09:00)
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
[2020-06-02] MEDS: SIMVASTATIN 40 MG TAB PO SCH (20:33)
[2020-06-02] MEDS: QUEtiapine FUMARATE 100 MG TABLET PO SCH (20:33)
[2020-06-03] MEDS: metFORMIN HCL ER 500 MG TABCR PO SCH (09:11)
[2020-06-03] MEDS: CITALOPRAM 20 MG TAB PO SCH (09:11)
[2020-06-03] MEDS: METOPROLOL TARTRATE 25 MG TAB PO SCH (09:11)
[2020-06-03] MEDS: SITagliptin PHOSPHATE 100 MG TAB PO SCH (09:11)
[2020-06-03] MEDS: haloperidoL 5 MG TAB PO SCH (09:11)
[2020-06-03] MEDS: lisinopril 10 MG TAB PO SCH (09:12)
[2020-06-03] MEDS: NICOTINE 21 MG/24 HR TDSY TD SCH (09:12)
[2020-06-03] MEDS: QUEtiapine FUMARATE 200 MG TAB PO SCH (09:12)
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
[2020-06-03] MEDS: SIMVASTATIN 40 MG TAB PO SCH (20:16)
[2020-06-03] MEDS: QUEtiapine FUMARATE 100 MG TABLET PO SCH (20:17)
[2020-06-04] MEDS: metFORMIN HCL ER 500 MG TABCR PO SCH (08:53)
[2020-06-04] MEDS: SITagliptin PHOSPHATE 100 MG TAB PO SCH (08:54)
[2020-06-04] MEDS: lisinopril 10 MG TAB PO SCH (08:54)
[2020-06-04] MEDS: CITALOPRAM 20 MG TAB PO SCH (08:54)
[2020-06-04] MEDS: METOPROLOL TARTRATE 25 MG TAB PO SCH (08:54)
[2020-06-04] MEDS: haloperidoL 5 MG TAB PO SCH ×2 (08:54→20:54)
[2020-06-04] MEDS: QUEtiapine FUMARATE 200 MG TAB PO SCH (08:54)
[2020-06-04] MEDS: NICOTINE 21 MG/24 HR TDSY TD SCH (08:57)
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
--- NOTE | 2020-06-04 11:36 | Electrocardiogram Report ---
Test Reason : Blood Pressure : / mmHG Vent. Rate : 082 BPM Atrial Rate : 082 BPM P-R Int : 150 ms QRS Dur : 078 ms QT Int : 376 ms P-R-T Axes : 086 085 087 degrees QTc Int : 439 ms Normal sinus rhythm Right atrial enlargement Abnormal ECG Confirmed by Vishnu Elizabeth ([id number] on 06/04/2020 11:35:55 AM Referred By: REFERRED SELF Confirmed By:Tim Elizabeth
[2020-06-04] MEDS: SIMVASTATIN 40 MG TAB PO SCH (20:55)
[2020-06-04] MEDS: QUEtiapine FUMARATE 100 MG TABLET PO SCH (20:55)
[2020-06-05] MEDS: metFORMIN HCL ER 500 MG TABCR PO SCH (08:41)
[2020-06-05] MEDS: CITALOPRAM 20 MG TAB PO SCH (08:41)
[2020-06-05] MEDS: haloperidoL 5 MG TAB PO SCH ×2 (08:42→20:55)
[2020-06-05] MEDS: METOPROLOL TARTRATE 25 MG TAB PO SCH ×2 (08:42→09:07)
[2020-06-05] MEDS: SITagliptin PHOSPHATE 100 MG TAB PO SCH (08:42)
[2020-06-05] MEDS: NICOTINE 21 MG/24 HR TDSY TD SCH (08:43)
[2020-06-05] MEDS: QUEtiapine FUMARATE 200 MG TAB PO SCH ×2 (08:43→20:55)
[2020-06-05] MEDS: lisinopril 10 MG TAB PO SCH (08:44)
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
[2020-06-05] MEDS: SIMVASTATIN 40 MG TAB PO SCH (20:55)
[2020-06-06] MEDS: CITALOPRAM 20 MG TAB PO SCH (09:43)
[2020-06-06] MEDS: metFORMIN HCL ER 500 MG TABCR PO SCH (09:43)
[2020-06-06] MEDS: METOPROLOL TARTRATE 25 MG TAB PO SCH (09:44)
[2020-06-06] MEDS: haloperidoL 5 MG TAB PO SCH ×2 (09:44→21:21)
[2020-06-06] MEDS: SITagliptin PHOSPHATE 100 MG TAB PO SCH (09:44)
[2020-06-06] MEDS: QUEtiapine FUMARATE 200 MG TAB PO SCH ×2 (09:45→21:21)
[2020-06-06] MEDS: lisinopril 10 MG TAB PO SCH (09:46)
[2020-06-06] MEDS: NICOTINE 21 MG/24 HR TDSY TD SCH (09:53)
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
[2020-06-06] MEDS: SIMVASTATIN 40 MG TAB PO SCH (21:21)
[2020-06-07] MEDS: metFORMIN HCL ER 500 MG TABCR PO SCH (08:50)
[2020-06-07] MEDS: haloperidoL 5 MG TAB PO SCH ×2 (08:50→21:00)
[2020-06-07] MEDS: lisinopril 10 MG TAB PO SCH (08:50)
[2020-06-07] MEDS: SITagliptin PHOSPHATE 100 MG TAB PO SCH (08:50)
[2020-06-07] MEDS: METOPROLOL TARTRATE 25 MG TAB PO SCH (08:50)
[2020-06-07] MEDS: QUEtiapine FUMARATE 200 MG TAB PO SCH ×2 (08:50→21:00)
[2020-06-07] MEDS: NICOTINE 21 MG/24 HR TDSY TD SCH (08:51)
[2020-06-07] MEDS: CITALOPRAM 20 MG TAB PO SCH (08:51)
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
[2020-06-07] MEDS: haloperidoL 5 MG TAB PO PRN (12:31)
[2020-06-07 16:47] LABS: Appearance Urine Clear (Clear); Bilirubin Urine Negative (Negative); Blood Urine Negative (Negative); Color Urine Yellow; Glucose Urine UA Negative (Negative); Ketones Urine Negative (Negative); Leukocyte Esterase Urine Negative (Negative); Nitrite Urine Negative (Negative); Protein Urine Negative (Negative); Specific Gravity Urine 1.008 (1.000-1.030); Urobilinogen Urine Negative (Negative)
[2020-06-07] MEDS: SIMVASTATIN 40 MG TAB PO SCH (21:00)
[2020-06-08] MEDS: METOPROLOL TARTRATE 25 MG TAB PO SCH (09:09)
[2020-06-08] MEDS: CITALOPRAM 20 MG TAB PO SCH (09:09)
[2020-06-08] MEDS: lisinopril 10 MG TAB PO SCH (09:09)
[2020-06-08] MEDS: QUEtiapine FUMARATE 200 MG TAB PO SCH ×2 (09:09→20:34)
[2020-06-08] MEDS: haloperidoL 5 MG TAB PO SCH ×3 (09:09→20:33)
[2020-06-08] MEDS: metFORMIN HCL ER 500 MG TABCR PO SCH (09:09)
[2020-06-08] MEDS: SITagliptin PHOSPHATE 100 MG TAB PO SCH (09:09)
[2020-06-08] MEDS: NICOTINE 21 MG/24 HR TDSY TD SCH (09:10)
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
[2020-06-08] MEDS: SIMVASTATIN 40 MG TAB PO SCH (20:34)
[2020-06-08] MEDS: hydrOXYzine HCl 25 MG TAB PO PRN ×2 (22:41→23:42)
[2020-06-09] MEDS: SITagliptin PHOSPHATE 100 MG TAB PO SCH (08:57)
[2020-06-09] MEDS: metFORMIN HCL ER 500 MG TABCR PO SCH (08:57)
[2020-06-09] MEDS: haloperidoL 5 MG TAB PO SCH ×3 (08:57→20:09)
[2020-06-09] MEDS: METOPROLOL TARTRATE 25 MG TAB PO SCH (08:57)
[2020-06-09] MEDS: CITALOPRAM 20 MG TAB PO SCH (08:57)
[2020-06-09] MEDS: QUEtiapine FUMARATE 200 MG TAB PO SCH ×2 (08:57→20:09)
[2020-06-09] MEDS: lisinopril 10 MG TAB PO SCH (08:58)
[2020-06-09] MEDS: NICOTINE 21 MG/24 HR TDSY TD SCH (09:06)
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
[2020-06-09] MEDS: SIMVASTATIN 40 MG TAB PO SCH (20:09)
[2020-06-10] MEDS: CITALOPRAM 20 MG TAB PO SCH ×3 (08:49→20:28)
[2020-06-10] MEDS: lisinopril 10 MG TAB PO SCH (08:50)
[2020-06-10] MEDS: METOPROLOL TARTRATE 25 MG TAB PO SCH (08:50)
[2020-06-10] MEDS: QUEtiapine FUMARATE 200 MG TAB PO SCH ×2 (08:50→20:28)
[2020-06-10] MEDS: SITagliptin PHOSPHATE 100 MG TAB PO SCH (08:50)
[2020-06-10] MEDS: metFORMIN HCL ER 500 MG TABCR PO SCH (08:50)
[2020-06-10] MEDS: haloperidoL 5 MG TAB PO SCH ×3 (08:50→20:27)
[2020-06-10] MEDS: NICOTINE 21 MG/24 HR TDSY TD SCH (08:51)
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
[2020-06-10] MEDS: haloperidoL 5 MG TAB PO PRN (16:38)
[2020-06-10] MEDS: SIMVASTATIN 40 MG TAB PO SCH (20:28)
[2020-06-11 07:55] LABS: BUN Creatinine Ratio 18.4 (10-20); Calcium 9.4 mg/dl (8.5-10.1); Creatinine Clr Calc Pharmacy 41.4 ml/min; Est GFR (African American) 76.6; Est GFR (Non-African American) 66.1; Potassium 4.5 mmol/L (3.5-5.1)
[2020-06-11] MEDS: METOPROLOL TARTRATE 25 MG TAB PO SCH (08:30)
[2020-06-11] MEDS: QUEtiapine FUMARATE 200 MG TAB PO SCH ×2 (08:30→20:57)
[2020-06-11] MEDS: lisinopril 10 MG TAB PO SCH (08:30)
[2020-06-11] MEDS: haloperidoL 5 MG TAB PO SCH ×3 (08:30→20:54)
[2020-06-11] MEDS: SITagliptin PHOSPHATE 100 MG TAB PO SCH (08:30)
[2020-06-11] MEDS: NICOTINE 21 MG/24 HR TDSY TD SCH (08:31)
[2020-06-11] MEDS: haloperidoL 5 MG TAB PO PRN (11:21)
--- NOTE | 2020-06-11 11:30 | Psychiatric Progress Note ---
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 Comment: [facility] [place], [facility], Foster Therapist Name of Therapist: . Needlemaker Name of Needlemaker: [facility] Phone Number for Needlemaker: [phone] Date of Appointment with Needlemaker: 06/15/20 Time of Appointment with Needlemaker: 9:30 a.m. Case Management Appointment Comment: Will meet with you at your apartment Post Discharge Appointments Primary Care Physician Name Of Family Doctor: [place] Primary Care Provider Appointment Comment: *[facility] to [facility]t closer to discharge & they will give hospital dc appt Contact Information Discharge Discharge Address: [address] [place] [address], [place] (1) Schizophrenia Schizophrenia type: paranoid schizophrenia Qualified Code(s): F20.0 - Paranoid schizophrenia
[2020-06-11] MEDS: SIMVASTATIN 40 MG TAB PO SCH (20:54)
[2020-06-11] MEDS: CITALOPRAM 20 MG TAB PO SCH (20:54)
[2020-06-12] MEDS: haloperidoL 5 MG TAB PO PRN ×2 (08:10→15:20)
--- NOTE | 2020-06-12 09:00 | Psychiatric Progress Note ---
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 Last Admin: 06/11/20 08:31 Dose: Not Given Documented by: Quetiapine Fumarate (Quetiapine Fumarate 200 Mg Tab) 400 mg PO QAM [facility] Stop: 07/03/20 08:59 Last Admin: 06/11/20 08:30 Dose: 400 mg Documented by: Quetiapine Fumarate (Quetiapine Fumarate 200 Mg Tab) 200 mg PO HS IVONE Stop: 07/05/20 21:59 Last Admin: 06/11/20 20:57 Dose: 200 mg Documented by: Simvastatin (Simvastatin 40 Mg Tab) 40 mg PO PM IVONE Stop: 06/23/20 20:59 Last Admin: 06/11/20 20:54 Dose: 40 mg Documented by: Sitagliptin Phosphate (Sitagliptin Phosphate 100 Mg Tab) 100 mg PO DAILY [facility] Stop: 06/24/20 08:59 Last Admin: 06/11/20 08:30 Dose: 100 mg Documented by: Sodium Chloride (Sodium Chloride 0.65% Na Soln 45 Ml ([place])) 1 - 2 sprays NA PRN PRN PRN Reason: Nasal Dryness/Congestion Stop: 06/23/20 18:20 Mental Health & Subst Abuse Tx Psychiatrist Name of Psychiatrist: Wendy Psychiatrist's Psychiatric Appointment Comment: [id number], [address], [place] Therapist Name of Therapist: . Yeast Pumper Name of Yeast Pumper: [facility] Phone Number for Yeast Pumper: [phone] Date of Appointment with Yeast Pumper: 06/15/20 Time of Appointment with Yeast Pumper: 9:30 a.m. Case Management Appointment Comment: Will meet with you at your apartment Post Discharge Appointments Primary Care Physician Name Of Family Doctor: [facility] Primary Care Provider Appointment Comment: *call to [facility] appt closer to discharge & they will give hospital dc appt Contact Information Discharge Discharge Address: [address] [place], [place] [address]Evelin [address] [place] [address] (1) Schizophrenia Schizophrenia type: paranoid schizophrenia Qualified Code(s): F20.0 - Paranoid schizophrenia
[2020-06-12] MEDS: haloperidoL 5 MG TAB PO SCH ×4 (09:05→21:02)
[2020-06-12] MEDS: METOPROLOL TARTRATE 25 MG TAB PO SCH (09:05)
[2020-06-12] MEDS: SITagliptin PHOSPHATE 100 MG TAB PO SCH (09:05)
[2020-06-12] MEDS: NICOTINE 21 MG/24 HR TDSY TD SCH (09:06)
[2020-06-12] MEDS: QUEtiapine FUMARATE 200 MG TAB PO SCH ×2 (09:06→21:03)
[2020-06-12] MEDS: lisinopril 10 MG TAB PO SCH (09:06)
[2020-06-12 10:11] LABS: Calcium 9.2 mg/dl (8.5-10.1); Creatinine Clr Calc Pharmacy 45.6 ml/min; Est GFR (Non-African American) 74.2; Potassium 4.1 mmol/L (3.5-5.1)
[2020-06-12] MEDS: SIMVASTATIN 40 MG TAB PO SCH (21:02)
[2020-06-12] MEDS: CITALOPRAM 20 MG TAB PO SCH (21:02)
[2020-06-13] MEDS: METOPROLOL TARTRATE 25 MG TAB PO SCH (09:09)
[2020-06-13] MEDS: SITagliptin PHOSPHATE 100 MG TAB PO SCH (09:09)
[2020-06-13] MEDS: haloperidoL 5 MG TAB PO SCH ×3 (09:09→20:43)
[2020-06-13] MEDS: NICOTINE 21 MG/24 HR TDSY TD SCH (09:10)
[2020-06-13] MEDS: QUEtiapine FUMARATE 200 MG TAB PO SCH ×2 (09:10→20:44)
[2020-06-13] MEDS: lisinopril 10 MG TAB PO SCH (09:10)
[2020-06-13 09:57] LABS: BUN Creatinine Ratio 21.3 (10-20); Creatinine Clr Calc Pharmacy 44.5 ml/min; Est GFR (African American) 83.4; Potassium 4.7 mmol/L (3.5-5.1)
--- NOTE | 2020-06-13 10:49 | Psychiatric Progress Note ---
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 07/08/20 20:59 Last Admin: 06/13/20 09:09 Dose: 5 mg Documented by: Hydroxyzine HCl (Hydroxyzine Hcl 25 Mg Tab) 50 mg PO HSZ PRN PRN Reason: Insomnia Stop: 06/23/20 18:20 Last Admin: 06/08/20 23:42 Dose: 50 mg Documented by: Hydroxyzine HCl (Hydroxyzine Hcl 25 Mg Tab) 25 mg PO Q4H PRN PRN Reason: Anxiety Stop: 06/23/20 18:20 Lisinopril (Lisinopril 10 Mg Tab) 10 mg PO DAILY [facility] Stop: 06/24/20 08:59 Last Admin: 06/13/20 09:10 Dose: 10 mg Documented by: Magnesium Hydroxide (Magnesium Hydroxide Susp 30 Ml Udc) 30 ml PO DAILY PRN PRN Reason: Constipation Stop: 06/23/20 18:20 Metoprolol Tartrate (Metoprolol Tartrate 25 Mg Tab) 25 mg PO DAILY [facility] Stop: 06/24/20 08:59 Last Admin: 06/13/20 09:09 Dose: 25 mg Documented by: Miscellaneous (Remove Nicoderm Patch) 1 ea N/A DAILY@[id number] [facility] Stop: 06/24/20 08:58 Last Admin: 06/13/20 09:11 Dose: Not Given Documented by: Nicotine (Nicotine 21 Mg/24 Hr Tdsy) 21 mg TD QAM [facility] Stop: 06/24/20 08:59 Last Admin: 06/13/20 09:10 Dose: Not Given Documented by: Quetiapine Fumarate (Quetiapine Fumarate 200 Mg Tab) 400 mg PO QAM [facility] Stop: 07/03/20 08:59 Last Admin: 06/13/20 09:10 Dose: 400 mg Documented by: Quetiapine Fumarate (Quetiapine Fumarate 200 Mg Tab) 200 mg PO HS IVONE Stop: 07/05/20 21:59 Last Admin: 06/12/20 21:03 Dose: 200 mg Documented by: Simvastatin (Simvastatin 40 Mg Tab) 40 mg PO PM IVONE Stop: 06/23/20 20:59 Last Admin: 06/12/20 21:02 Dose: 40 mg Documented by: Sitagliptin Phosphate (Sitagliptin Phosphate 100 Mg Tab) 100 mg PO DAILY IVONE Stop: 06/24/20 08:59 Last Admin: 06/13/20 09:09 Dose: 100 mg Documented by: Sodium Chloride (Sodium Chloride 0.65% Na Soln 45 Ml ([place])) 1 - 2 sprays NA PRN PRN PRN Reason: Nasal Dryness/Congestion Stop: 06/23/20 18:20 Mental Health & Subst Abuse Tx Psychiatrist Name of Psychiatrist: Wendy Psychiatrist's Psychiatric Appointment Comment: Sarahy Devlin, [place] [facility] Therapist Name of Therapist: . Processing Spec Name of Processing Spec: [facility] Phone Number for Processing Spec: [phone] Date of Appointment with Processing Spec: 06/15/20 Time of Appointment with Processing Spec: 9:30 a.m. Case Management Appointment Comment: Will meet with you at your apartment Post Discharge Appointments Primary Care Physician Name Of Family Doctor: [facility] Primary Care Provider Appointment Comment: *call to [facility] appt closer to discharge & they will give hospital dc appt Contact Information Discharge Discharge Address: [address] [place], [place] [address]Evelin Galindo [facility], [place] (1) Schizophrenia Schizophrenia type: paranoid schizophrenia Qualified Code(s): F20.0 - Paranoid schizophrenia
[2020-06-13] MEDS: haloperidoL 5 MG TAB PO PRN (15:40)
[2020-06-13] MEDS: SIMVASTATIN 40 MG TAB PO SCH (20:43)
[2020-06-13] MEDS: CITALOPRAM 20 MG TAB PO SCH (20:44)
[2020-06-14] MEDS: SITagliptin PHOSPHATE 100 MG TAB PO SCH (08:39)
[2020-06-14] MEDS: METOPROLOL TARTRATE 25 MG TAB PO SCH (08:39)
[2020-06-14] MEDS: haloperidoL 5 MG TAB PO SCH ×3 (08:39→20:44)
[2020-06-14] MEDS: QUEtiapine FUMARATE 200 MG TAB PO SCH ×2 (08:40→20:45)
[2020-06-14] MEDS: NICOTINE 21 MG/24 HR TDSY TD SCH (08:40)
[2020-06-14] MEDS: lisinopril 10 MG TAB PO SCH (08:40)
--- NOTE | 2020-06-14 10:26 | Psychiatric Progress Note ---
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 Subsalicylate Liqd 236 Ml) 15 ml PO PRN PRN PRN Reason: Loose Stool Stop: 06/23/20 18:20 Haloperidol (Haloperidol 5 Mg Tab) 5 mg PO Q6H PRN PRN Reason: psychosis Stop: 06/25/20 20:50 Last Admin: 06/13/20 15:40 Dose: 5 mg Documented by: Haloperidol (Haloperidol 5 Mg Tab) 5 mg PO TID [facility] Stop: 07/08/20 20:59 Last Admin: 06/14/20 08:39 Dose: 5 mg Documented by: Hydroxyzine HCl (Hydroxyzine Hcl 25 Mg Tab) 50 mg PO HSZ PRN PRN Reason: Insomnia Stop: 06/23/20 18:20 Last Admin: 06/08/20 23:42 Dose: 50 mg Documented by: Hydroxyzine HCl (Hydroxyzine Hcl 25 Mg Tab) 25 mg PO Q4H PRN PRN Reason: Anxiety Stop: 06/23/20 18:20 Lisinopril (Lisinopril 10 Mg Tab) 10 mg PO DAILY [facility] Stop: 06/24/20 08:59 Last Admin: 06/14/20 08:40 Dose: 10 mg Documented by: Magnesium Hydroxide (Magnesium Hydroxide Susp 30 Ml Udc) 30 ml PO DAILY PRN PRN Reason: Constipation Stop: 06/23/20 18:20 Metoprolol Tartrate (Metoprolol Tartrate 25 Mg Tab) 25 mg PO DAILY [facility] Stop: 06/24/20 08:59 Last Admin: 06/14/20 08:39 Dose: 25 mg Documented by: Mirtazapine (Mirtazapine Tab 15 Mg Tab) 15 mg PO HS [facility] Stop: 07/14/20 21:59 Miscellaneous (Remove Nicoderm Patch) 1 ea N/A DAILY@0859 [facility] Stop: 06/24/20 08:58 Last Admin: 06/14/20 08:39 Dose: Not Given Documented by: Nicotine (Nicotine 21 Mg/24 Hr Tdsy) 21 mg TD QAM [facility] Stop: 06/24/20 08:59 Last Admin: 06/14/20 08:40 Dose: Not Given Documented by: Quetiapine Fumarate (Quetiapine Fumarate 200 Mg Tab) 400 mg PO QAM [facility]ONE Stop: 07/03/20 08:59 Last Admin: 06/14/20 08:40 Dose: 400 mg Documented by: Quetiapine Fumarate (Quetiapine Fumarate 200 Mg Tab) 200 mg PO HS IVONE Stop: 07/05/20 21:59 Last Admin: 06/13/20 20:44 Dose: 200 mg Documented by: Simvastatin (Simvastatin 40 Mg Tab) 40 mg PO PM IVONE Stop: 06/23/20 20:59 Last Admin: 06/13/20 20:43 Dose: 40 mg Documented by: Sitagliptin Phosphate (Sitagliptin Phosphate 100 Mg Tab) 100 mg PO DAILY [facility]ONE Stop: 06/24/20 08:59 Last Admin: 06/14/20 08:39 Dose: 100 mg Documented by: Sodium Chloride (Sodium Chloride 0.65% Na Soln 45 Ml ([place])) 1 - 2 sprays NA PRN PRN PRN Reason: Nasal Dryness/Congestion Stop: 06/23/20 18:20 Mental Health & Subst Abuse Tx Psychiatrist Name of Psychiatrist: Wendy Psychiatrist's Psychiatric Appointment Comment: [address] [place], [facility] Therapist Name of Therapist: . Commodity Loan Clerk Name of Commodity Loan Clerk: [facility] Phone Number for Commodity Loan Clerk: [phone] Date of Appointment with Commodity Loan Clerk: 06/15/20 Time of Appointment with Commodity Loan Clerk: 9:30 a.m. Case Management Appointment Comment: Will meet with you at your apartment Post Discharge Appointments Primary Care Physician Name Of Family Doctor: [facility] Primary Care Provider Appointment Comment: *call to [facility] appt closer to discharge & they will give hospital dc appt Contact Information Discharge Discharge Address: [address] [place], [place] [address]renan Evelin Jung [address] [place] [address] (1) Schizophrenia Schizophrenia type: paranoid schizophrenia Qualified Code(s): F20.0 - Paranoid schizophrenia
[2020-06-14] MEDS: SIMVASTATIN 40 MG TAB PO SCH (20:44)
[2020-06-14] MEDS ORDERED: MIRTAZAPINE TAB 15 MG TAB PO SCH (22:00)
[2020-06-15 08:44] LABS: BUN Creatinine Ratio 24.4 (10-20); Calcium 8.9 mg/dl (8.5-10.1); Creatinine Clr Calc Pharmacy 45.6 ml/min; Est GFR (Non-African American) 74.2; Potassium 4.6 mmol/L (3.5-5.1)
[2020-06-15] MEDS: haloperidoL 5 MG TAB PO SCH ×3 (08:56→20:54)
[2020-06-15] MEDS: lisinopril 10 MG TAB PO SCH (08:57)
[2020-06-15] MEDS: METOPROLOL TARTRATE 25 MG TAB PO SCH (08:57)
[2020-06-15] MEDS: SITagliptin PHOSPHATE 100 MG TAB PO SCH (08:57)
[2020-06-15] MEDS: QUEtiapine FUMARATE 200 MG TAB PO SCH ×2 (08:57→20:55)
[2020-06-15] MEDS: NICOTINE 21 MG/24 HR TDSY TD SCH (09:03)
--- NOTE | 2020-06-15 10:24 | Psychiatric Progress Note ---
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 that may be true when you have a normal serum sodium level, but that hers is low and that that can be dangerous, so we would like her to try to restrict her fluid intake as much as possible. She indicated understanding. The patient's daughter reports that this has been a chronic problem and its etiology has not been determined. Although the patient says that her sleep has been "okay," staff report indicates that she is still sleeping poorly. Physical Exam Psychiatric Orientation: alert and oriented x 3 Apperance: appropriately dressed, appropriately groomed and appeared stated age Eye Contact: + fair eye contact Motor Behavior: steady gait and station Walks more quickly and deliberately than previously. Speech: normal rate/rhythm/volume of speech Affect: + blunted affect However, the patient does smile appropriately and is significantly more animated . "Okay." Thought Process: goal directed thought process Thought Content: reality based without delusions Suicidal Thoughts: denies suicidal thoughts Homicidal Thoughts: denies homicidal thoughts Hallucinations: + auditory hallucinations Patient reports that her auditory hallucinations have essentially stopped, but she does occasionally hear a "voice" and she is able to ignore it when it happens. Cognition: recent memory grossly intact, remote memory grossly intact, attention grossly intact and language grossly intact Estimated Intelligence: average estimated intelligence Insight: + fair insight Judgement: + fair judgement Vital Signs (Past 24 Hours) Last Vital Signs Temp 36.7 C 06/15/20 06:47 Pulse 98 H 06/15/20 06:47 Resp 18 06/15/20 06:47 BP 146/82 H 06/15/20 06:47 Pulse Ox 98 05/24/20 18:00 Results & Data ([facility]) Laboratory Results Laboratory Results - last 24 hr 06/15/20 08:07 Sodium 127 L Potassium 4.6 Chloride 96 L Carbon Dioxide 26 Anion Gap 6.0 BUN 20 H Creatinine 0.80 Est Cr Clr Drug Dosing 45.6 Est GFR ( Amer) 86.0 Est GFR (Non-Af Amer) 74.2 BUN/Creatinine Ratio 24.4 H Glucose 152 H Calcium 8.9 Current Inpatient Medications Current Inpatient Medications: Current Inpatient Medications Acetaminophen (Acetaminophen 325 Mg Tab) 650 mg PO Q4H PRN PRN Reason: Headache or Minor Fever Stop: 06/23/20 18:20 Al Hydrox/Mg Hydrox/Simethicone (Aluminum/Magnesium Susp 30 Ml Udc) 30 ml PO Q4H PRN PRN Reason: GI Upset Stop: 06/23/20 18:20 Benztropine Mesylate (Benztropine Mesylate 1 Mg Tab) 1 mg PO BID PRN PRN Reason: Muscle Spasm Stop: 06/26/20 10:32 Bismuth Subsalicylate (Bismuth Subsalicylate Liqd 236 Ml) 15 ml PO PRN PRN PRN Reason: Loose Stool Stop: 06/23/20 18:20 Haloperidol (Haloperidol 5 Mg Tab) 5 mg PO Q6H PRN PRN Reason: psychosis Stop: 06/25/20 20:50 Last Admin: 06/13/20 15:40 Dose: 5 mg Documented by: Haloperidol (Haloperidol 5 Mg Tab) 5 mg PO TID [facility] Stop: 07/08/20 20:59 Last Admin: 06/15/20 08:56 Dose: 5 mg Documented by: Hydroxyzine HCl (Hydroxyzine Hcl 25 Mg Tab) 50 mg PO HSZ PRN PRN Reason: Insomnia Stop: 06/23/20 18:20 Last Admin: 06/08/20 23:42 Dose: 50 mg Documented by: Hydroxyzine HCl (Hydroxyzine Hcl 25 Mg Tab) 25 mg PO Q4H PRN PRN Reason: Anxiety Stop: 06/23/20 18:20 Lisinopril (Lisinopril 10 Mg Tab) 10 mg PO DAILY [facility] Stop: 06/24/20 08:59 Last Admin: 06/15/20 08:57 Dose: 10 mg Documented by: Magnesium Hydroxide (Magnesium Hydroxide Susp 30 Ml Udc) 30 ml PO DAILY PRN PRN Reason: Constipation Stop: 06/23/20 18:20 Metoprolol Tartrate (Metoprolol Tartrate 25 Mg Tab) 25 mg PO DAILY [facility] Stop: 06/24/20 08:59 Last Admin: 06/15/20 08:57 Dose: 25 mg Documented by: Mirtazapine (Mirtazapine Tab 15 Mg Tab) 15 mg PO HS [facility] Stop: 07/14/20 21:59 Last Admin: 06/14/20 20:44 Dose: 15 mg Documented by: Miscellaneous (Remove Nicoderm Patch) 1 ea N/A DAILY@[id number] [facility] Stop: 06/24/20 08:58 Last Admin: 06/15/20 09:03 Dose: Not Given Documented by: Nicotine (Nicotine 21 Mg/24 Hr Tdsy) 21 mg TD QAM IVONE Stop: 06/24/20 08:59 Last Admin: 06/15/20 09:03 Dose: Not Given Documented by: Quetiapine Fumarate (Quetiapine Fumarate 200 Mg Tab) 400 mg PO QAM IVONE Stop: 07/03/20 08:59 Last Admin: 06/15/20 08:57 Dose: 400 mg Documented by: Quetiapine Fumarate (Quetiapine Fumarate 200 Mg Tab) 200 mg PO HS IVONE Stop: 07/05/20 21:59 Last Admin: 06/14/20 20:45 Dose: 200 mg Documented by: Simvastatin (Simvastatin 40 Mg Tab) 40 mg PO PM IVONE Stop: 06/23/20 20:59 Last Admin: 06/14/20 20:44 Dose: 40 mg Documented by: Sitagliptin Phosphate (Sitagliptin Phosphate 100 Mg Tab) 100 mg PO DAILY IVONE Stop: 06/24/20 08:59 Last Admin: 06/15/20 08:57 Dose: 100 mg Documented by: Sodium Chloride (Sodium Chloride 0.65% Na Soln 45 Ml ([place])) 1 - 2 sprays NA PRN PRN PRN Reason: Nasal Dryness/Congestion Stop: 06/23/20 18:20 Mental Health & Subst Abuse Tx Psychiatrist Name of Psychiatrist: Wendy, intake with Debra Quintana Psychiatrist's Date of Appointment with Psychiatrist: 06/21/20 Time of Appointment with Psychiatrist: 12:30 Psychiatric Appointment Comment: telehealth intake appt, then referral to [place] office - med management Therapist Name of Therapist: . Winder Hand Name of Winder Hand: [facility] Phone Number for Winder Hand: [phone] Date of Appointment with Winder Hand: 06/15/20 Time of Appointment with Winder Hand: 9:30 a.m. Case Management Appointment Comment: Will meet with you at your apartment Post Discharge Appointments Primary Care Physician Name Of Family Doctor: [facility] Primary Care Provider Appointment Comment: *call to [facility] appt closer to discharge & they will give hospital dc appt Contact Information Discharge Discharge Address: [address], [address], [place] (1) Schizophrenia Schizophrenia type: paranoid schizophrenia Qualified Code(s): F20.0 - Paranoid schizophrenia
[2020-06-15] MEDS: SIMVASTATIN 40 MG TAB PO SCH (20:54)
[2020-06-15] MEDS ORDERED: MIRTAZAPINE TAB 15 MG TAB PO SCH (22:00)
[2020-06-15] MEDS: hydrOXYzine HCl 25 MG TAB PO PRN (22:53)
[2020-06-16] MEDS: haloperidoL 5 MG TAB PO SCH ×3 (09:01→20:33)
[2020-06-16] MEDS: QUEtiapine FUMARATE 200 MG TAB PO SCH ×2 (09:01→20:35)
[2020-06-16] MEDS: SITagliptin PHOSPHATE 100 MG TAB PO SCH (09:01)
[2020-06-16] MEDS: METOPROLOL TARTRATE 25 MG TAB PO SCH (09:01)
[2020-06-16] MEDS: lisinopril 10 MG TAB PO SCH (09:02)
[2020-06-16] MEDS: NICOTINE 21 MG/24 HR TDSY TD SCH (09:10)
[2020-06-16] MEDS ORDERED: ZOLPIDEM TARTRATE 5 MG TAB PO PRN (11:23)
--- NOTE | 2020-06-16 11:31 | Psychiatric Progress Note ---
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 PRN Reason: Headache or Minor Fever Stop: 06/23/20 18:20 Al Hydrox/Mg Hydrox/Simethicone (Aluminum/Magnesium Susp 30 Ml Udc) 30 ml PO Q4H PRN PRN Reason: GI Upset Stop: 06/23/20 18:20 Benztropine Mesylate (Benztropine Mesylate 1 Mg Tab) 1 mg PO BID PRN PRN Reason: Muscle Spasm Stop: 06/26/20 10:32 Bismuth Subsalicylate (Bismuth Subsalicylate Liqd 236 Ml) 15 ml PO PRN PRN PRN Reason: Loose Stool Stop: 06/23/20 18:20 Haloperidol (Haloperidol 5 Mg Tab) 5 mg PO Q6H PRN PRN Reason: psychosis Stop: 06/25/20 20:50 Last Admin: 06/13/20 15:40 Dose: 5 mg Documented by: Haloperidol (Haloperidol 5 Mg Tab) 5 mg PO TID [facility] Stop: 07/08/20 20:59 Last Admin: 06/16/20 09:01 Dose: 5 mg Documented by: Lisinopril (Lisinopril 10 Mg Tab) 10 mg PO DAILY [facility] Stop: 06/24/20 08:59 Last Admin: 06/16/20 09:02 Dose: 10 mg Documented by: Magnesium Hydroxide (Magnesium Hydroxide Susp 30 Ml Udc) 30 ml PO DAILY PRN PRN Reason: Constipation Stop: 06/23/20 18:20 Metoprolol Tartrate (Metoprolol Tartrate 25 Mg Tab) 25 mg PO DAILY [facility] Stop: 06/24/20 08:59 Last Admin: 06/16/20 09:01 Dose: 25 mg Documented by: Miscellaneous (Remove Nicoderm Patch) 1 ea N/A DAILY@[id number] [facility] Stop: 06/24/20 08:58 Last Admin: 06/16/20 09:11 Dose: Not Given Documented by: Nicotine (Nicotine 21 Mg/24 Hr Tdsy) 21 mg TD QAM [facility] Stop: 06/24/20 08:59 Last Admin: 06/16/20 09:10 Dose: Not Given Documented by: Quetiapine Fumarate (Quetiapine Fumarate 200 Mg Tab) 400 mg PO QAM IVONE Stop: 07/03/20 08:59 Last Admin: 06/16/20 09:01 Dose: 400 mg Documented by: Quetiapine Fumarate (Quetiapine Fumarate 200 Mg Tab) 200 mg PO HS IVONE Stop: 07/05/20 21:59 Last Admin: 06/15/20 20:55 Dose: 200 mg Documented by: Simvastatin (Simvastatin 40 Mg Tab) 40 mg PO PM IVONE Stop: 06/23/20 20:59 Last Admin: 06/15/20 20:54 Dose: 40 mg Documented by: Sitagliptin Phosphate (Sitagliptin Phosphate 100 Mg Tab) 100 mg PO DAILY IVONE Stop: 06/24/20 08:59 Last Admin: 06/16/20 09:01 Dose: 100 mg Documented by: Sodium Chloride (Sodium Chloride 0.65% Na Soln 45 Ml ([place])) 1 - 2 sprays NA PRN PRN PRN Reason: Nasal Dryness/Congestion Stop: 06/23/20 18:20 Zolpidem Tartrate (Zolpidem Tartrate 5 Mg Tab) 5 mg PO HS PRN PRN Reason: Sleep Stop: 07/16/20 11:22 Mental Health & Subst Abuse Tx Psychiatrist Name of Psychiatrist: Wendy, intake with Debra Quintana Psychiatrist's Date of Appointment with Psychiatrist: 06/21/20 Time of Appointment with Psychiatrist: 12:30 Psychiatric Appointment Comment: telehealth intake appt, then referral to [facility] - med management Therapist Name of Therapist: . Tower Control Operator Name of Tower Control Operator: [facility] - [place] Phone Number for Tower Control Operator: [phone] Date of Appointment with Tower Control Operator: 06/22/20 Time of Appointment with Tower Control Operator: 8:30 Case Management Appointment Comment: Will meet with you at your apartment Post Discharge Appointments Primary Care Physician Name Of Family Doctor: [facility] Primary Care Provider Appointment Comment: *call to [facility] appt closer to discharge & they will give hospital dc appt Contact Information Discharge Discharge Address: [address], [address], [place] (1) Schizophrenia Schizophrenia type: paranoid schizophrenia Qualified Code(s): F20.0 - Paranoid schizophrenia
[2020-06-16] MEDS: SIMVASTATIN 40 MG TAB PO SCH (20:35)
[2020-06-17] MEDS: SITagliptin PHOSPHATE 100 MG TAB PO SCH (08:50)
[2020-06-17] MEDS: METOPROLOL TARTRATE 25 MG TAB PO SCH (08:50)
[2020-06-17] MEDS: haloperidoL 5 MG TAB PO SCH ×3 (08:50→20:40)
[2020-06-17] MEDS: lisinopril 10 MG TAB PO SCH (08:51)
[2020-06-17] MEDS: QUEtiapine FUMARATE 200 MG TAB PO SCH ×2 (08:51→20:41)
[2020-06-17] MEDS: NICOTINE 21 MG/24 HR TDSY TD SCH (08:51)
--- NOTE | 2020-06-17 09:47 | Psychiatric Progress Note ---
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 Subsalicylate (Bismuth Subsalicylate Liqd 236 Ml) 15 ml PO PRN PRN PRN Reason: Loose Stool Stop: 06/23/20 18:20 Haloperidol (Haloperidol 5 Mg Tab) 5 mg PO Q6H PRN PRN Reason: psychosis Stop: 06/25/20 20:50 Last Admin: 06/13/20 15:40 Dose: 5 mg Documented by: Haloperidol (Haloperidol 5 Mg Tab) 5 mg PO TID [facility] Stop: 07/08/20 20:59 Last Admin: 06/17/20 08:50 Dose: 5 mg Documented by: Lisinopril (Lisinopril 10 Mg Tab) 10 mg PO DAILY [facility] Stop: 06/24/20 08:59 Last Admin: 06/17/20 08:51 Dose: 10 mg Documented by: Magnesium Hydroxide (Magnesium Hydroxide Susp 30 Ml Udc) 30 ml PO DAILY PRN PRN Reason: Constipation Stop: 06/23/20 18:20 Metoprolol Tartrate (Metoprolol Tartrate 25 Mg Tab) 25 mg PO DAILY [facility] Stop: 06/24/20 08:59 Last Admin: 06/17/20 08:50 Dose: 25 mg Documented by: Miscellaneous (Remove Nicoderm Patch) 1 ea N/A DAILY@0859 [facility] Stop: 06/24/20 08:58 Last Admin: 06/17/20 08:50 Dose: Not Given Documented by: Nicotine (Nicotine 21 Mg/24 Hr Tdsy) 21 mg TD QAM [facility] Stop: 06/24/20 08:59 Last Admin: 06/17/20 08:51 Dose: Not Given Documented by: Quetiapine Fumarate (Quetiapine Fumarate 200 Mg Tab) 400 mg PO QAM [facility] Stop: 07/03/20 08:59 Last Admin: 06/17/20 08:51 Dose: 400 mg Documented by: Quetiapine Fumarate (Quetiapine Fumarate 200 Mg Tab) 200 mg PO HS IVONE Stop: 07/05/20 21:59 Last Admin: 06/16/20 20:35 Dose: 200 mg Documented by: Simvastatin (Simvastatin 40 Mg Tab) 40 mg PO PM IVONE Stop: 06/23/20 20:59 Last Admin: 06/16/20 20:35 Dose: 40 mg Documented by: Sitagliptin Phosphate (Sitagliptin Phosphate 100 Mg Tab) 100 mg PO DAILY IVONE Stop: 06/24/20 08:59 Last Admin: 06/17/20 08:50 Dose: 100 mg Documented by: Sodium Chloride (Sodium Chloride 0.65% Na Soln 45 Ml ([place])) 1 - 2 sprays NA PRN PRN PRN Reason: Nasal Dryness/Congestion Stop: 06/23/20 18:20 Zolpidem Tartrate (Zolpidem Tartrate 5 Mg Tab) 5 mg PO HS PRN PRN Reason: Sleep Stop: 07/16/20 11:22 Last Admin: 06/16/20 20:33 Dose: 5 mg Documented by: Mental Health & Subst Abuse Tx Psychiatrist Name of Psychiatrist: Wendy, intake with Debra Quintana Psychiatrist's Date of Appointment with Psychiatrist: 06/21/20 Time of Appointment with Psychiatrist: 12:30 Psychiatric Appointment Comment: telehealth intake appt, then referral to [place] office - med management Therapist Name of Therapist: . Shaker Operator Name of Shaker Operator: [facility] Phone Number for Shaker Operator: [phone] Date of Appointment with Shaker Operator: 06/22/20 Time of Appointment with Shaker Operator: 8:30 Case Management Appointment Comment: Will meet with you at your apartment Post Discharge Appointments Primary Care Physician Name Of Family Doctor: Sanchez Hill Primary Care Provider Appointment Comment: *[facility]t closer to discharge & they will give hospital dc appt Contact Information Discharge Discharge Address: [address], [place] (1) Schizophrenia Schizophrenia type: paranoid schizophrenia Qualified Code(s): F20.0 - Paranoid schizophrenia
[2020-06-17] MEDS: haloperidoL 5 MG TAB PO PRN ×2 (09:59→16:51)
[2020-06-17] MEDS: ZOLPIDEM TARTRATE 5 MG TAB PO SCH (20:41)
[2020-06-17] MEDS: SIMVASTATIN 40 MG TAB PO SCH (20:41)
[2020-06-18 07:58] LABS: BUN Creatinine Ratio 25.3 (10-20); Calcium 9.1 mg/dl (8.5-10.1); Creatinine Clr Calc Pharmacy 42.9 ml/min; Est GFR (African American) 79.9; Est GFR (Non-African American) 68.9; Potassium 4.3 mmol/L (3.5-5.1)
[2020-06-18] MEDS: haloperidoL 5 MG TAB PO SCH ×3 (08:47→20:46)
[2020-06-18] MEDS: SITagliptin PHOSPHATE 100 MG TAB PO SCH (08:47)
[2020-06-18] MEDS: METOPROLOL TARTRATE 25 MG TAB PO SCH (08:47)
[2020-06-18] MEDS: NICOTINE 21 MG/24 HR TDSY TD SCH (08:47)
[2020-06-18] MEDS: QUEtiapine FUMARATE 200 MG TAB PO SCH ×2 (08:47→20:46)
[2020-06-18] MEDS: lisinopril 10 MG TAB PO SCH (08:48)
--- NOTE | 2020-06-18 09:46 | Psychiatric Progress Note ---
Date of Service June 18, 2020 Impression / Recommendations Impression 70-year-old female with a history of schizophrenia who recently relocated to [place] from [place] of state in order to be closer to family. She had not yet arranged outpatient mental health services here, and was taking medications prescribed by her psychiatrist in [place] (quetiapine 400 mg every morning and 100 mg nightly, citalopram 20 mg every morning, and haloperidol 5 mg every morning). She was hospitalized medically 05/20/2020 for UTI and hyponatremia with a sodium of 122, and at that time was paranoid and had not been taking her medications as prescribed. She was discharged 05/22/2020, and return to the ER 2 days later with command auditory hallucinations telling her not to take her medications. Her daughter brought her in and reported the patient had been decompensating since discharge from the medical floor, was refusing to take medications, behavior was disorganized, and her children were unable to manage her ADLs. She is admitted voluntarily, and initially was trialed on aripiprazole with a plan to transition to [facility], but worsened on this medication. After discussion with the daughter, new plan was to pursue a trial of haloperidol with a plan to start Haldol Decanoate if it is effective and well-tolerated. She has been referred to the [facility] for a family independence case manager and will have an intake on Thursday, and has also been referred to [facility] for outpatient mental health services. In patient treatment is medically necessary due to the severity of her symptoms and inability to provide for her own basic needs without the care and assistance of others as a direct result of her poorly controlled psychotic illness. The patient failed to respond to a trial of aripiprazole at a dose of up to 15 mg a day. Because of her recent history of nonadherence in response to command auditory hallucinations we had been considering placing her on long-acting aripiprazole (Abilify Maintena). However, her condition worsened while taking Abilify and after Seroquel was discontinued. Seroquel was restarted, and the patient's condition did not improve rapidly. She was started on haloperidol with the idea of possibly switching to Haldol decanoate. However, the patient does not seem to respond favorably to haloperidol, and has repeatedly asked to be placed back on quetiapine at the dose she had been taking in the past (300 mg in the morning and 200 mg at bedtime - prior to patient self-tapering to 100mg at HS a few months before her medical admission). Repeat EKG done this week reveals no significant change. Given the history that the patient had evidently been quite stable and living independently in [facility] ([place]) for years while taking quetiapine as above, we are now planning to resume quetiapine 400 mg in the morning and 200 mg at bedtime, with a recommendation of ongoing monitoring of her EKG. Haloperidol has been increased to 5 mg TID, with the option of continuing Haldol as an depot form following discharge as a protection against nonadherence with oral medications in the future. The patient has been showing some recent improvement however therapeutic gains are not yet consistent. We are in the process of titrating medications and working towards the necessary wraparound aftercare services. 06/16 Reviewed. 06/18--improving, sodium improved today Plan: continue current meds and treatment plan. Inventory Assets Strengths: . Supportive family. Cooperative. Good social skills. Needs: Resolution of psychosis. Improved medication adherence Risk Factors Assessment Male: No : Yes Do You Have Access To A Gun?: No Health Problems: Yes Mental Health Diagnoses: Yes Substance Use Disorders: No (Tobacco use disorder) Previous Attempt: Yes Previous Attempt; Highly Lethal: No (5 pills) Previous Attempt; Planned: No (Responding to a command auditory hallucination a number of years ago.) Previous Attempt; Didn't Tell Anyone: No Family History of Suicide: No Previous Psychiatric Hospitalization: Yes Hopelessness: No Smoker: Yes Protective Factors Assessment Mormon Beliefs: Yes ("[employer].") : No Responsible for Young Children: No Employed: No Stable Relationships: Yes Supportive Family: Yes Good Rapport with Provider: Yes Absence of Any Risk Factors Above: No Interval History Identifying Information 70-year-old female admitted voluntarily for inpatient psychiatric treatment on 05/24/2020 due to worsening psychosis, inability to care for self, and refusal of psychiatric medications and treatment as an outpatient. REviewed 06/16. Chief Complaint "I always get up early, voices are good with Haldol". Review of Systems Sleep Information Total Hours of Sleep: 4.75 Sleep Comments: pt on q-15 minute checks Meal Information Percent Meal Consumed - Breakfast: 100 Percent Meal Consumed - Lunch: 100 Percent Meal Consumed - Dinner: 100 Nutrition Comment: per meal record Subjective Subjective Patient was seen & assessed and interval progress reviewed with treatment team. No new issues overnight. Is helpful with a peer with psychosis. Sleep is improved. No periods of agitation since Remeron d/c. Patient does request Haldol prn about twice a day and is hoping to have some "extra" for home. They state she reports voices at that time and med "keeps them mumbles". She is hoping daughter can stay with her for a few days upon discharge. Slept <5 hrs but she states likes being up early and doesn't want adjustment in Ambiven. She still likes to see pills being taken out of packaging but has been compliant with them. Physical Exam Psychiatric Orientation: alert Apperance: appropriately groomed Eye Contact: good eye contact Motor Behavior: no abnormal motor movements Speech: normal rate/rhythm/volume of speech Affect: euthymic affect Thought Process: linear/logical thought process Thought Content: no delusions Suicidal Thoughts: denies suicidal thoughts Homicidal Thoughts: denies homicidal thoughts Hallucinations: no auditory hallucinations and no visual hallucinations Cognition: attention grossly intact Insight: + limited insight Judgement: + limited judgement Vital Signs (Past 24 Hours) Last Vital Signs Temp 36.6 C 06/18/20 06:51 Pulse 82 06/18/20 06:52 Resp 16 06/18/20 06:51 BP 138/82 06/18/20 06:52 Pulse Ox 98 05/24/20 18:00 Results & Data ([facility]) Laboratory Results Laboratory Results - last 24 hr 06/18/20 07:23 Sodium 132 L Potassium 4.3 Chloride 96 L Carbon Dioxide 31 Anion Gap 5.0 BUN 22 H Creatinine 0.85 Est Cr Clr Drug Dosing 42.9 Est GFR ( Amer) 79.9 Est GFR (Non-Af Amer) 68.9 BUN/Creatinine Ratio 25.3 H Glucose 149 H Calcium 9.1 Current Inpatient Medications Current Inpatient Medications: Current Inpatient Medications Acetaminophen (Acetaminophen 325 Mg Tab) 650 mg PO Q4H PRN PRN Reason: Headache or Minor Fever Stop: 06/23/20 18:20 Al Hydrox/Mg Hydrox/Simethicone (Aluminum/Magnesium Susp 30 Ml Udc) 30 ml PO Q4H PRN PRN Reason: GI Upset Stop: 06/23/20 18:20 Benztropine Mesylate (Benztropine Mesylate 1 Mg Tab) 1 mg PO BID PRN PRN Reason: Muscle Spasm Stop: 06/26/20 10:32 Bismuth Subsalicylate (Bismuth Subsalicylate Liqd 236 Ml) 15 ml PO PRN PRN PRN Reason: Loose Stool Stop: 06/23/20 18:20 Haloperidol (Haloperidol 5 Mg Tab) 5 mg PO Q6H PRN PRN Reason: psychosis Stop: 06/25/20 20:50 Last Admin: 06/17/20 16:51 Dose: 5 mg Documented by: Haloperidol (Haloperidol 5 Mg Tab) 5 mg PO TID [facility] Stop: 07/08/20 20:59 Last Admin: 06/18/20 08:47 Dose: 5 mg Documented by: Lisinopril (Lisinopril 10 Mg Tab) 10 mg PO DAILY [facility] Stop: 06/24/20 08:59 Last Admin: 06/18/20 08:48 Dose: 10 mg Documented by: Magnesium Hydroxide (Magnesium Hydroxide Susp 30 Ml Udc) 30 ml PO DAILY PRN PRN Reason: Constipation Stop: 06/23/20 18:20 Metoprolol Tartrate (Metoprolol Tartrate 25 Mg Tab) 25 mg PO DAILY [facility] Stop: 06/24/20 08:59 Last Admin: 06/18/20 08:47 Dose: 25 mg Documented by: Miscellaneous (Remove Nicoderm Patch) 1 ea N/A DAILY@0859 [facility] Stop: 06/24/20 08:58 Last Admin: 06/18/20 08:55 Dose: Not Given Documented by: Nicotine (Nicotine 21 Mg/24 Hr Tdsy) 21 mg TD QAM [facility] Stop: 06/24/20 08:59 Last Admin: 06/18/20 08:47 Dose: Not Given Documented by: Quetiapine Fumarate (Quetiapine Fumarate 200 Mg Tab) 400 mg PO QAM [facility] Stop: 07/03/20 08:59 Last Admin: 06/18/20 08:47 Dose: 400 mg Documented by: Quetiapine Fumarate (Quetiapine Fumarate 200 Mg Tab) 200 mg PO HS [facility] Stop: 07/05/20 21:59 Last Admin: 06/17/20 20:41 Dose: 200 mg Documented by: Simvastatin (Simvastatin 40 Mg Tab) 40 mg PO PM IVONE Stop: 06/23/20 20:59 Last Admin: 06/17/20 20:41 Dose: 40 mg Documented by: Sitagliptin Phosphate (Sitagliptin Phosphate 100 Mg Tab) 100 mg PO DAILY [facility] Stop: 06/24/20 08:59 Last Admin: 06/18/20 08:47 Dose: 100 mg Documented by: Sodium Chloride (Sodium Chloride 0.65% Na Soln 45 Ml ([place])) 1 - 2 sprays NA PRN PRN PRN Reason: Nasal Dryness/Congestion Stop: 06/23/20 18:20 Zolpidem Tartrate (Zolpidem Tartrate 5 Mg Tab) 5 mg PO HS PRN PRN Reason: Sleep Stop: 07/16/20 11:22 Last Admin: 06/16/20 20:33 Dose: 5 mg Documented by: Zolpidem Tartrate (Zolpidem Tartrate 5 Mg Tab) 5 mg PO HS IVONE Stop: 07/17/20 21:59 Last Admin: 06/17/20 20:41 Dose: 5 mg Documented by: Mental Health & Subst Abuse Tx Psychiatrist Name of Psychiatrist: Wendy, intake with Debra Quintana Psychiatrist's Date of Appointment with Psychiatrist: 06/21/20 Time of Appointment with Psychiatrist: 12:30 Psychiatric Appointment Comment: telehealth intake appt, then referral to [place] office - med management Therapist Name of Therapist: . Remote Coders Name of Remote Coders: [facility] Phone Number for Remote Coders: [phone] Date of Appointment with Remote Coders: 06/22/20 Time of Appointment with Remote Coders: 8:30 Case Management Appointment Comment: Will meet with you at your apartment Post Discharge Appointments Primary Care Physician Name Of Family Doctor: Sanchez Hill Primary Care Provider Appointment Comment: [facility] [facility] & they will give hospital dc appt Contact Information Discharge Discharge Address: Solitario Jung [address]
[2020-06-18] MEDS: haloperidoL 5 MG TAB PO PRN (16:06)
[2020-06-18] MEDS: SIMVASTATIN 40 MG TAB PO SCH (20:46)
[2020-06-18] MEDS: ZOLPIDEM TARTRATE 5 MG TAB PO SCH (20:46)
[2020-06-19] MEDS: SITagliptin PHOSPHATE 100 MG TAB PO SCH (08:39)
[2020-06-19] MEDS: METOPROLOL TARTRATE 25 MG TAB PO SCH (08:39)
[2020-06-19] MEDS: haloperidoL 5 MG TAB PO SCH ×3 (08:39→20:46)
[2020-06-19] MEDS: QUEtiapine FUMARATE 200 MG TAB PO SCH ×2 (08:42→20:46)
[2020-06-19] MEDS: NICOTINE 21 MG/24 HR TDSY TD SCH (08:42)
[2020-06-19] MEDS: lisinopril 10 MG TAB PO SCH (08:43)
--- NOTE | 2020-06-19 09:39 | Psychiatric Progress Note ---
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 appetite continues to be adequate. Pt is aware of plans for discharge tomorrow, and she smiles widely when telling this provider h ow excited she is to return home. We discussed the option for patient to be referred for outpatient group programming through her oil field caser. Pt states "I'm not into that right now. When I get home I'll be doing a lot of cleaning and cooking to keep myself busy. Pt was encouraged to continue conversations with her oil field caser regarding options for outpatient support. The patient denied SI and other needs or concerns today. When asked her goal for her last anticipated full day on the unit, the patient states "to have estevan." Physical Exam Psychiatric Orientation: alert, oriented x 3 and cooperative Apperance: appropriately dressed, appropriately groomed and appeared stated age Eye Contact: good eye contact Motor Behavior: no abnormal motor movements (observed while sitting on edge of bed) Speech: normal rate/rhythm/volume of speech Affect: + blunted affect and + constricted affect but with increased moments of affective brightening - pt smiled several times during our encounter when discussing going home tomorrow. Mood: no depressed mood ("I'm feeling better") Thought Process: goal directed thought process and + concrete thought process Thought Content: reality based without delusions; no hopelessness Suicidal Thoughts: denies suicidal thoughts Homicidal Thoughts: denies homicidal thoughts Hallucinations: no auditory hallucinations (reports absence of auditory halluci nations for the past 2 days) and no visual hallucinations Cognition: attention grossly intact and language grossly intact Insight: + fair insight Judgement: + fair judgement Vital Signs (Past 24 Hours) Last Vital Signs Temp 36.7 C 06/19/20 06:38 Pulse 90 06/19/20 06:39 Resp 16 06/19/20 06:38 BP 134/78 06/19/20 06:39 Pulse Ox 98 05/24/20 18:00 Results & Data ([facility]) Laboratory Results Laboratory Results - last 24 hr 06/19/20 07:18 POC Glucose 164 H Current Inpatient Medications Current Inpatient Medications: Current Inpatient Medications Acetaminophen (Acetaminophen 325 Mg Tab) 650 mg PO Q4H PRN PRN Reason: Headache or Minor Fever Stop: 06/23/20 18:20 Al Hydrox/Mg Hydrox/Simethicone (Aluminum/Magnesium Susp 30 Ml Udc) 30 ml PO Q4H PRN PRN Reason: GI Upset Stop: 06/23/20 18:20 Benztropine Mesylate (Benztropine Mesylate 1 Mg Tab) 1 mg PO BID PRN PRN Reason: Muscle Spasm Stop: 06/26/20 10:32 Bismuth Subsalicylate (Bismuth Subsalicylate Liqd 236 Ml) 15 ml PO PRN PRN PRN Reason: Loose Stool Stop: 06/23/20 18:20 Haloperidol (Haloperidol 5 Mg Tab) 5 mg PO Q6H PRN PRN Reason: psychosis Stop: 06/25/20 20:50 Last Admin: 06/18/20 16:06 Dose: 5 mg Documented by: Haloperidol (Haloperidol 5 Mg Tab) 5 mg PO TID [facility] Stop: 07/08/20 20:59 Last Admin: 06/19/20 08:39 Dose: 5 mg Documented by: Lisinopril (Lisinopril 10 Mg Tab) 10 mg PO DAILY [facility] Stop: 06/24/20 08:59 Last Admin: 06/19/20 08:43 Dose: 10 mg Documented by: Magnesium Hydroxide (Magnesium Hydroxide Susp 30 Ml Udc) 30 ml PO DAILY PRN PRN Reason: Constipation Stop: 06/23/20 18:20 Metoprolol Tartrate (Metoprolol Tartrate 25 Mg Tab) 25 mg PO DAILY [facility] Stop: 06/24/20 08:59 Last Admin: 06/19/20 08:39 Dose: 25 mg Documented by: Miscellaneous (Remove Nicoderm Patch) 1 ea N/A DAILY@0859 [facility] Stop: 06/24/20 08:58 Last Admin: 06/19/20 08:39 Dose: Not Given Documented by: Nicotine (Nicotine 21 Mg/24 Hr Tdsy) 21 mg TD QAM [facility] Stop: 06/24/20 08:59 Last Admin: 06/19/20 08:42 Dose: Not Given Documented by: Quetiapine Fumarate (Quetiapine Fumarate 200 Mg Tab) 400 mg PO QAM [facility] Stop: 07/03/20 08:59 Last Admin: 06/19/20 08:42 Dose: 400 mg Documented by: Quetiapine Fumarate (Quetiapine Fumarate 200 Mg Tab) 200 mg PO HS [facility] Stop: 07/05/20 21:59 Last Admin: 06/18/20 20:46 Dose: 200 mg Documented by: Simvastatin (Simvastatin 40 Mg Tab) 40 mg PO PM IVONE Stop: 06/23/20 20:59 Last Admin: 06/18/20 20:46 Dose: 40 mg Documented by: Sitagliptin Phosphate (Sitagliptin Phosphate 100 Mg Tab) 100 mg PO DAILY IVONE Stop: 06/24/20 08:59 Last Admin: 06/19/20 08:39 Dose: 100 mg Documented by: Sodium Chloride (Sodium Chloride 0.65% Na Soln 45 Ml ([place])) 1 - 2 sprays NA PRN PRN PRN Reason: Nasal Dryness/Congestion Stop: 06/23/20 18:20 Zolpidem Tartrate (Zolpidem Tartrate 5 Mg Tab) 5 mg PO HS PRN PRN Reason: Sleep Stop: 07/16/20 11:22 Last Admin: 06/16/20 20:33 Dose: 5 mg Documented by: Zolpidem Tartrate (Zolpidem Tartrate 5 Mg Tab) 5 mg PO HS IVONE Stop: 07/17/20 21:59 Last Admin: 06/18/20 20:46 Dose: 5 mg Documented by: Mental Health & Subst Abuse Tx Psychiatrist Name of Psychiatrist: Wendy, intake with Debra Quintana Psychiatrist's Date of Appointment with Psychiatrist: 06/21/20 Time of Appointment with Psychiatrist: 12:30 Psychiatric Appointment Comment: telehealth intake appt, then referral to [place] office - med management Therapist Name of Therapist: . Traffic Manager Name of Traffic Manager: [facility] Josh Phone Number for Traffic Manager: [phone] Date of Appointment with Traffic Manager: 06/22/20 Time of Appointment with Traffic Manager: 8:30 Case Management Appointment Comment: Will meet with you at your apartment Post Discharge Appointments Primary Care Physician Name Of Family Doctor: [facility] Primary Care Provider Appointment Comment: *call to [facility] appt closer to discharge & they will give hospital dc appt Contact Information Discharge Discharge Address: [address] [place], [place] [address]renan Jung [address] [facility], [place] (1) Schizophrenia Schizophrenia type: paranoid schizophrenia Qualified Code(s): F20.0 - Paranoid schizophrenia
[2020-06-19] MEDS: SIMVASTATIN 40 MG TAB PO SCH (20:46)
[2020-06-19] MEDS: ZOLPIDEM TARTRATE 5 MG TAB PO SCH (20:46)
--- NOTE | 2020-06-20 08:18 | Discharge Summary ---
Date of Service June 20, 2020 History of Present Illness The patient is a 70-year-old woman with an extensive psychiatric history dates back to her late 20s or early 30s. She carries a primary psychiatric diagnosis of schizophrenia and has previously been a patient at the [facility] in [place]. The patient had presented for a mental health evaluation on 05/20/2020. At that time, the patient was found to be hyponatremic and was admitted to the medical floor for treatment. The patient explains today that the auditory hallucinations that she was experiencing ("voices") were telling her to keep drinking water, so she did. Patient was stabilized on the medical floor, her serum sodium returned to normal, and arrangements were made for the patient to continue her psychiatric treatment on an outpatient basis following discharge. She was discharged with a medical floor on 05/22/2020. Yesterday, 05/24/2020, the patient was brought back to the hospital by her daughter. The daughter reported that she has been very concerned that the patient has been going downhill despite correction of the metabolic issues. More specifically, the patient was refusing her medications, was disorganized in her behavior to the degree that her children were not able to manage her routine activities of daily living, and, given the fact that the patient lives alone in a [place] for the [place], the patient's daughter and her siblings felt that they could not safely meet her physical needs on a 24-hour basis. The patient reports that for the past 4 or 5 years she has been living in [facility], [place]" [place], and she recently relocated to [place] in order to be near to her children and to her siblings. She does not have local mental health providers. In addition to the above described command hallucinations (i.e., telling her to drink water and, more recently, telling her to not take medications) the patient describes a long history of fearing for her own safety and not feeling that she could trust other people because of the belief that they may be plotting against her. Physical Exam Psychiatric Orientation: alert, oriented x 3 and cooperative Apperance: appropriately dressed, appropriately groomed and appeared stated age Eye Contact: good eye contact Motor Behavior: steady gait and station and no abnormal motor movements Walks with a walker, but at times picks it up to maneuver around furniture, and gait remains steady, although slowed. Speech: normal rate/rhythm/volume of speech Affect: euthymic affect and mood congruent with affect Mood: no depressed mood, no anxious mood and no irritable mood "Good." Thought Process: goal directed thought process and linear/logical thought process Thought Content: reality based without delusions Suicidal Thoughts: denies suicidal thoughts Homicidal Thoughts: denies homicidal thoughts Hallucinations: no auditory hallucinations and no visual hallucinations Cognition: attention grossly intact and language grossly intact; + recent memory not intact (Does not recall being hospitalized on the medical floor <1 month ago) Estimated Intelligence: average estimated intelligence Insight: + fair insight Judgement: + fair judgement Vital Signs (Past 24 Hours) Last Vital Signs Temp 36.4 C L 06/20/20 06:33 Pulse 73 06/20/20 06:34 Resp 16 06/20/20 06:33 BP 169/75 H 06/20/20 06:34 Pulse Ox 98 05/24/20 18:00 Principal Diagnosis Schizophrenia Hyponatremia UTI, resolved Psychiatric Data The patient was hospitalized voluntarily for 27 days. On admission, she was resumed on antibiotics for her UTI, which had been started during her recent medical hospitalization, but she had not taken after discharge. There appeared to be a component of delirium associated with the infection and hyponatremia, with disorientation, memory, and perceptual disturbances. Fluid restriction was recommended, and sodium followed throughout her hospital stay, with a low of 127 on 06/15/2020, which improved to 132 several days later. Her sodium had been as low as 122 during her brief medical hospitalization just prior to psychiatric admission. On admission her citalopram was continued and quetiapine was changed to aripiprazole with a plan to transfer to an [facility] due to noncompliance. Aripiprazole was titrated to 15mg, but symptoms worsened, so it was discontinued, and quetiapine resumed. Prn haloperidol was utilized and as she has a good response, it was scheduled and titrated to 5mg tid. She declined transition to Haldol decanoate. Citalopram was discontinued 06/14/20 d/t ongoing hyponatremia and irritability, and a trial of mirtazapine started to target sleep and mood. It was titrated to 30mg HS but then discontinued as it was ineffective and she was refusing it. Zolpidem 5mg HS was utilized short term in the hospital to target sleep. Metformin was discontinued as her daughter reported the patient's acetylene gas compressor had stopped it due to concerns about dizziness. She had a prolonged course with significant paranoia, AH of voices, and delusions of persecution, often involving staff, and severe irritability to the extent that she was initially unwilling to talk to most female staff, and was responding to AH of voices. Her psychotic symptoms and irritability gradually improved, she was able to tolerate groups and interactions with staff and peers, was taking medications willingly and tolerating well, and stating willingness to follow-up with outpatient treatment. She was referred to [facility] for psychiatric care and therapy, and to [facility] for case management. Follow-up as scheduled with her PCP for her multiple medical conditions. Her daughter was involved throughout her course of treatment, with multiple meetings with the social sciences professor and discussions with clinicians regarding the patient's progress and treatment recommendations. She reported resolution of auditory hallucinations of voices for the last few days in the hospital, and denied thoughts of harming herself or others consistently. Day of Discharge Assessment Staff report the patient attended and participated in groups and programming, and expressed some paranoia regarding staff, for example accusing them of listening in on her conversation, but was able to be redirected, and has demonstrated significantly less irritability. She is taking medications as prescribed and interacting appropriately with peers. Sleep and appetite have been good, and she is tending to ADLs independently. She has been denying auditory hallucinations/voices. She reported good mod, rated it a 9/10, and said she was excited fro discharge. Her daughter requested call from staff re: discharge plans, and the social sciences professor and PA both spoke with her. On my assessment, Lara reports she is "really excited" to go home, stating she is looking forward to making a venison meatloaf tonight. She is also excited to see her children and grandchildren. She denies side effects or other concerns about her medications. She denies hearing and voices for the past few days, and reports mood is much improved. She denies feeling paranoid or suspicious of others, and denies SI and HI. We reviewed each of her medications and the changes that were made in detail, and also reviewed her lab results and recommendations re: hyponatremia. She continues to insist she was not hospitalized medically prior to this hospitalization, and details of that hospitalization were reviewed with her. Transition of Care Transition Of Care Record: was reviewed with the patient Advance Directives Advance Directives Information Provided: Yes Advance Directives: No Mental Health Advance Directive: No Advance Directives on File: No Living Will: Yes Power of Billing Representative: Yes Power of Billing Representative Name: Livia - Renae Ballard Lee Advance Directives Reason:: Declines as Mental Health Visit. Risk Factors Assessment Respecters were mitigated by admission to the inpatient unit, use of medications to target mood and psychotic symptoms, recommendations for a long-acting injectable antipsychotic which she declined, referring her for outpatient treatment, involving her family/supports, involving her in groups and therapy, working on healthy coping skills and a discharge safety plan. Psychotic symptoms improved significantly with resolution of hallucinations and significant decrease in paranoia, mood has improved and stabilized, she is consistently denying thoughts of harming herself or others, is taking medications willingly and tolerating them well, attending and participating in groups and therapy, and interacting appropriately with staff and peers. She is eating and sleeping well, and tending to ADLs independently. She is requesting discharge, and is no longer at acute risk of harm to herself or others, so can be managed as an outpatient at this time. Male: No : Yes Do You Have Access To A Gun?: No Health Problems: Yes Mental Health Diagnoses: Yes Substance Use Disorders: No (Tobacco use disorder) Previous Attempt: Yes Previous Attempt; Highly Lethal: No (5 pills) Previous Attempt; Planned: No (Responding to a command auditory hallucination a number of years ago.) Previous Attempt; Didn't Tell Anyone: No Family History of Suicide: No Previous Psychiatric Hospitalization: Yes Hopelessness: No Smoker: Yes Protective Factors Assessment Moravian Beliefs: Yes ("Mandaen.") : No Responsible for Young Children: No Employed: No Stable Relationships: Yes Supportive Family: Yes Good Rapport with Provider: Yes Absence of Any Risk Factors Above: No Tobacco Cessation at Discharge Tobacco Cessation Medication Prescribed at Discharge: Offered & Pt Refused (Patient has not been needing the patch or gum, and denies cravings) Practical counseling provided including: recognizing danger situations, developi ng coping skills and providing basic information about quitting Tobacco Cessation Outpatient Followup: Outpatient referral made to (PCP) Antipsychotic Medications Patient discharged on 2 antipsychotics, as she failed at least 3 trials of monotherapy (quetiapine, aripiprazole, haloperidol) Total Time Total Time Spent: Greater Than 30 Minutes Total Time Includes: Examination of the patient, Discharge Planning and Medication Reconciliation Discharge Data Lab Results 05/24/20 05/24/20 05/24/20 13:40 13:40 13:45 WBC 4.85 RBC 4.18 L Hgb 13.8 Hct 38.9 MCV 93.1 MCH 33.0 MCHC 35.5 RDW Std Deviation 45.7 RDW Coeff of Gissel 13.4 Plt Count 232 MPV 10.0 Immature Gran % (Auto) 0.2 Neut % (Auto) 47.0 Lymph % (Auto) 42.1 [place] % (Auto) 7.4 Eos % (Auto) 2.5 Baso % (Auto) 0.8 Neut # (Auto) 2.28 Lymph # (Auto) 2.04 [place] # (Auto) 0.36 Eos # (Auto) 0.12 Baso # (Auto) 0.04 Immature Gran # (Auto) 0.01 Sodium Potassium Chloride Carbon Dioxide Anion Gap BUN Creatinine Est Cr Clr Drug Dosing Est GFR ( Amer) Est GFR (Non-Af Amer) BUN/Creatinine Ratio Glucose POC Glucose Calcium Total Bilirubin AST ALT Alkaline Phosphatase Total Protein Albumin Globulin Albumin/Globulin Ratio Triglycerides Cholesterol LDL Cholesterol, Calc VLDL Cholesterol, Calc HDL Cholesterol Cholesterol/HDL Ratio TSH Urine Color Yellow Urine Appearance Clear Urine pH 6.5 Ur Specific [place] 1.010 Urine Protein Negative Urine Glucose (UA) Negative Urine Ketones Negative Urine Blood Negative Urine Nitrite Negative Urine Bilirubin Negative Urine Urobilinogen Negative Ur Leukocyte Esterase Negative Salicylates Urine Opiates Screen Neg Ur Methadone, Qual Neg Acetaminophen Urine Barbiturates Neg Ur Phencyclidine (PCP) Neg U Amphetamin/Meth Scrn Neg MDMA (Ecstasy) Screen Neg U Benzodiazepines Scrn Neg Ur Cocaine Metabolite Neg U Marijuana (THC) Screen Neg Ethyl Alcohol mg/dL COVID-19 Eval Order SARS-CoV-2, RNA, NAAT 05/24/20 05/24/20 05/24/20 13:45 13:45 13:45 WBC RBC Hgb Hct MCV MCH MCHC RDW Std Deviation RDW Coeff of Gissel Plt Count MPV Immature Gran % (Auto) Neut % (Auto) Lymph % (Auto) [place] % (Auto) Eos % (Auto) Baso % (Auto) Neut # (Auto) Lymph # (Auto) [place] # (Auto) Eos # (Auto) Baso # (Auto) Immature Gran # (Auto) Sodium 135 L Potassium 4.0 Chloride 102 Carbon Dioxide 30 Anion Gap 3.0 BUN 16 Creatinine 0.82 Est Cr Clr Drug Dosing 44.5 Est GFR ( Amer) 83.4 Est GFR (Non-Af Amer) 72.0 BUN/Creatinine Ratio 19.9 Glucose 134 H POC Glucose Calcium 9.0 Total Bilirubin 0.2 AST 11 L ALT 29 Alkaline Phosphatase 114 Total Protein 7.3 Albumin 3.8 Globulin 3.5 Albumin/Globulin Ratio 1.1 Triglycerides Cholesterol LDL Cholesterol, Calc VLDL Cholesterol, Calc HDL Cholesterol Cholesterol/HDL Ratio TSH 1.450 Urine Color Urine Appearance Urine pH Ur Specific [place] Urine Protein Urine Glucose (UA) Urine Ketones Urine Blood Urine Nitrite Urine Bilirubin Urine Urobilinogen Ur Leukocyte Esterase Salicylates 3.6 Urine Opiates Screen Ur Methadone, Qual Acetaminophen < 2 L Urine Barbiturates Ur Phencyclidine (PCP) U Amphetamin/Meth Scrn MDMA (Ecstasy) Screen U Benzodiazepines Scrn Ur Cocaine Metabolite U Marijuana (THC) Screen Ethyl Alcohol mg/dL < 3.0 COVID-19 Eval Order SARS-CoV-2, RNA, NAAT 05/24/20 05/24/20 05/25/20 18:35 18:35 00:51 WBC RBC Hgb Hct MCV MCH MCHC RDW Std Deviation RDW Coeff of Gissel Plt Count MPV Immature Gran % (Auto) Neut % (Auto) Lymph % (Auto) [place] % (Auto) Eos % (Auto) Baso % (Auto) Neut # (Auto) Lymph # (Auto) [place] # (Auto) Eos # (Auto) Baso # (Auto) Immature Gran # (Auto) Sodium Potassium Chloride Carbon Dioxide Anion Gap BUN Creatinine Est Cr Clr Drug Dosing Est GFR ( Amer) Est GFR (Non-Af Amer) BUN/Creatinine Ratio Glucose POC Glucose 124 H Calcium Total Bilirubin AST ALT Alkaline Phosphatase Total Protein Albumin Globulin Albumin/Globulin Ratio Triglycerides Cholesterol LDL Cholesterol, Calc VLDL Cholesterol, Calc HDL Cholesterol Cholesterol/HDL Ratio TSH Urine Color Urine Appearance Urine pH Ur Specific [place] Urine Protein Urine Glucose (UA) Urine Ketones Urine Blood Urine Nitrite Urine Bilirubin Urine Urobilinogen Ur Leukocyte Esterase Salicylates Urine Opiates Screen Ur Methadone, Qual Acetaminophen Urine Barbiturates Ur Phencyclidine (PCP) U Amphetamin/Meth Scrn MDMA (Ecstasy) Screen U Benzodiazepines Scrn Ur Cocaine Metabolite U Marijuana (THC) Screen Ethyl Alcohol mg/dL COVID-19 Eval [facility] SARS-CoV-2, RNA, NAAT NEGATIVE 05/26/20 05/29/20 06/07/20 08:32 07:27 15:55 WBC RBC Hgb Hct MCV MCH MCHC RDW Std Deviation RDW Coeff of Gissel Plt Count MPV Immature Gran % (Auto) Neut % (Auto) Lymph % (Auto) [place] % (Auto) Eos % (Auto) Baso % (Auto) Neut # (Auto) Lymph # (Auto) [place] # (Auto) Eos # (Auto) Baso # (Auto) Immature Gran # (Auto) Sodium 133 L Potassium 4.0 Chloride 100 Carbon Dioxide 26 Anion Gap 7.0 BUN Creatinine Est Cr Clr Drug Dosing Est GFR ( Amer) Est GFR (Non-Af Amer) BUN/Creatinine Ratio Glucose POC Glucose Calcium Total Bilirubin AST ALT Alkaline Phosphatase Total Protein Albumin Globulin Albumin/Globulin Ratio Triglycerides 106 Cholesterol 181 LDL Cholesterol, Calc 76 VLDL Cholesterol, Calc 21 HDL Cholesterol 84 Cholesterol/HDL Ratio 2 TSH Urine Color Yellow Urine Appearance Clear Urine pH 6.0 Ur Specific [place] 1.008 Urine Protein Negative Urine Glucose (UA) Negative Urine Ketones Negative Urine Blood Negative Urine Nitrite Negative Urine Bilirubin Negative Urine Urobilinogen Negative Ur Leukocyte Esterase Negative Salicylates Urine Opiates Screen Ur Methadone, Qual Acetaminophen Urine Barbiturates Ur Phencyclidine (PCP) U Amphetamin/Meth Scrn MDMA (Ecstasy) Screen U Benzodiazepines Scrn Ur Cocaine Metabolite U Marijuana (THC) Screen Ethyl Alcohol mg/dL COVID-19 Eval Order SARS-CoV-2, RNA, NAAT 06/11/20 06/11/20 06/12/20 07:29 07:35 07:46 WBC RBC Hgb Hct MCV MCH MCHC RDW Std Deviation RDW Coeff of Gissel Plt Count MPV Immature Gran % (Auto) Neut % (Auto) Lymph % (Auto) [place] % (Auto) Eos % (Auto) Baso % (Auto) Neut # (Auto) Lymph # (Auto) [place] # (Auto) Eos # (Auto) Baso # (Auto) Immature Gran # (Auto) Sodium 128 L Potassium 4.5 Chloride 96 L Carbon Dioxide 25 Anion Gap 7.0 BUN 16 Creatinine 0.88 Est Cr Clr Drug Dosing 41.4 Est GFR ( Amer) 76.6 Est GFR (Non-Af Amer) 66.1 BUN/Creatinine Ratio 18.4 Glucose 170 H POC Glucose 170 H 148 H Calcium 9.4 Total Bilirubin AST ALT Alkaline Phosphatase Total Protein Albumin Globulin Albumin/Globulin Ratio Triglycerides Cholesterol LDL Cholesterol, Calc VLDL Cholesterol, Calc HDL Cholesterol Cholesterol/HDL Ratio TSH Urine Color Urine Appearance Urine pH Ur Specific [place] Urine Protein Urine Glucose (UA) Urine Ketones Urine Blood Urine Nitrite Urine Bilirubin Urine Urobilinogen Ur Leukocyte Esterase Salicylates Urine Opiates Screen Ur Methadone, Qual Acetaminophen Urine Barbiturates Ur Phencyclidine (PCP) U Amphetamin/Meth Scrn MDMA (Ecstasy) Screen U Benzodiazepines Scrn Ur Cocaine Metabolite U Marijuana (THC) Screen Ethyl Alcohol mg/dL COVID-19 Eval Order SARS-CoV-2, RNA, NAAT 06/12/20 06/13/20 06/14/20 09:17 09:15 07:18 WBC RBC Hgb Hct MCV MCH MCHC RDW Std Deviation RDW Coeff of Gissel Plt Count MPV Immature Gran % (Auto) Neut % (Auto) Lymph % (Auto) [place] % (Auto) Eos % (Auto) Baso % (Auto) Neut # (Auto) Lymph # (Auto) [place] # (Auto) Eos # (Auto) Baso # (Auto) Immature Gran # (Auto) Sodium 130 L 128 L Potassium 4.1 4.7 Chloride 97 L 96 L Carbon Dioxide 25 26 Anion Gap 7.0 6.0 BUN 18 18 Creatinine 0.80 0.82 Est Cr Clr Drug Dosing 45.6 44.5 Est GFR ( Amer) 86.0 83.4 Est GFR (Non-Af Amer) 74.2 72.0 BUN/Creatinine Ratio 22.0 H 21.3 H Glucose 186 H 157 H POC Glucose 113 H Calcium 9.2 9.0 Total Bilirubin AST ALT Alkaline Phosphatase Total Protein Albumin Globulin Albumin/Globulin Ratio Triglycerides Cholesterol LDL Cholesterol, Calc VLDL Cholesterol, Calc HDL Cholesterol Cholesterol/HDL Ratio TSH Urine Color Urine Appearance Urine pH Ur Specific [place] Urine Protein Urine Glucose (UA) Urine Ketones Urine Blood Urine Nitrite Urine Bilirubin Urine Urobilinogen Ur Leukocyte Esterase Salicylates Urine Opiates Screen Ur Methadone, Qual Acetaminophen Urine Barbiturates Ur Phencyclidine (PCP) U Amphetamin/Meth Scrn MDMA (Ecstasy) Screen U Benzodiazepines Scrn Ur Cocaine Metabolite U Marijuana (THC) Screen Ethyl Alcohol mg/dL COVID-19 Eval Order SARS-CoV-2, RNA, NAAT 06/15/20 06/16/20 06/17/20 08:07 07:47 07:14 WBC RBC Hgb Hct MCV MCH MCHC RDW Std Deviation RDW Coeff of Gissel Plt Count MPV Immature Gran % (Auto) Neut % (Auto) Lymph % (Auto) [place] % (Auto) Eos % (Auto) Baso % (Auto) Neut # (Auto) Lymph # (Auto) [place] # (Auto) Eos # (Auto) Baso # (Auto) Immature Gran # (Auto) Sodium 127 L Potassium 4.6 Chloride 96 L Carbon Dioxide 26 Anion Gap 6.0 BUN 20 H Creatinine 0.80 Est Cr Clr Drug Dosing 45.6 Est GFR ( Amer) 86.0 Est GFR (Non-Af Amer) 74.2 BUN/Creatinine Ratio 24.4 H Glucose 152 H POC Glucose 153 H 156 H Calcium 8.9 Total Bilirubin AST ALT Alkaline Phosphatase Total Protein Albumin Globulin Albumin/Globulin Ratio Triglycerides Cholesterol LDL Cholesterol, Calc VLDL Cholesterol, Calc HDL Cholesterol Cholesterol/HDL Ratio TSH Urine Color Urine Appearance Urine pH Ur Specific [place] Urine Protein Urine Glucose (UA) Urine Ketones Urine Blood Urine Nitrite Urine Bilirubin Urine Urobilinogen Ur Leukocyte Esterase Salicylates Urine Opiates Screen Ur Methadone, Qual Acetaminophen Urine Barbiturates Ur Phencyclidine (PCP) U Amphetamin/Meth Scrn MDMA (Ecstasy) Screen U Benzodiazepines Scrn Ur Cocaine Metabolite U Marijuana (THC) Screen Ethyl Alcohol mg/dL COVID-19 Eval Order SARS-CoV-2, RNA, NAAT 06/18/20 06/19/20 07:23 07:18 WBC RBC Hgb Hct MCV MCH MCHC RDW Std Deviation RDW Coeff of Gissel Plt Count MPV Immature Gran % (Auto) Neut % (Auto) Lymph % (Auto) [place] % (Auto) Eos % (Auto) Baso % (Auto) Neut # (Auto) Lymph # (Auto) [place] # (Auto) Eos # (Auto) Baso # (Auto) Immature Gran # (Auto) Sodium 132 L Potassium 4.3 Chloride 96 L Carbon Dioxide 31 Anion Gap 5.0 BUN 22 H Creatinine 0.85 Est Cr Clr Drug Dosing 42.9 Est GFR ( Amer) 79.9 Est GFR (Non-Af Amer) 68.9 BUN/Creatinine Ratio 25.3 H Glucose 149 H POC Glucose 164 H Calcium 9.1 Total Bilirubin AST ALT Alkaline Phosphatase Total Protein Albumin Globulin Albumin/Globulin Ratio Triglycerides Cholesterol LDL Cholesterol, Calc VLDL Cholesterol, Calc HDL Cholesterol Cholesterol/HDL Ratio TSH Urine Color Urine Appearance Urine pH Ur Specific [place] Urine Protein Urine Glucose (UA) Urine Ketones Urine Blood Urine Nitrite Urine Bilirubin Urine Urobilinogen Ur Leukocyte Esterase Salicylates Urine Opiates Screen Ur Methadone, Qual Acetaminophen Urine Barbiturates Ur Phencyclidine (PCP) U Amphetamin/Meth Scrn MDMA (Ecstasy) Screen U Benzodiazepines Scrn Ur Cocaine Metabolite U Marijuana (THC) Screen Ethyl Alcohol mg/dL COVID-19 Eval Order SARS-CoV-2, RNA, NAAT Hospital Course (1) Schizophrenia: 05/25 -The patient has been admitted to the [facility] inpatient psychiatric unit. She has been referred and has begun to participate in individual, group, and recreational therapies. Family interventions are also planned. Aftercare planning has also already started, with dialogue between the treatment team and the patient's children. -Admission, her prescribed medications included Celexa 20 mg daily and quetiapine 300 mg in the morning and 100 mg at bedtime. While these medications may have been effective in the past, of the recurrent issue seems to be that she periodically stops taking these medications, apparently primarily because of command auditory hallucinations that may occur from time to time. Currently, the plan is to change the patient's antipsychotic medication to one that can be given in long-acting depot form. Invega has been considered, but there is a vague history provided by the patient of a possible plan to place her on a pacemaker. Her most recent EKG does not indicate an arrhythmia, and her QT interval was within normal limits. Nevertheless, aripiprazole may be preferable to paliperidone because of the slightly reduced risk of QTc interval prolongation and arrhythmia. However, paliperidone may be an option if the patient's response aripiprazole is not as hoped. We will also continue Celexa 20 mg a day. -EKG repeat on 05/28/2020 to monitor for QTC interval prolongation. -Check lipid levels. 05/26--reviewed. 05/27--titrate Abilify to 15 mg. If no immediate improvement consider retrial Seroquel since injectable is not particularly affordable for family. Daughter would still support injectable if only medication. Haldol prn. 05/28--doesn't seem to be improving, hard to know if was initially honeymooning or if also a component as tends to get worse on pm shift. If patient ultimately refuses antipsychotic medication she should be converted to an involuntary commitment as no longer voluntary and she is clearly unable to care for self outside of the hospital as frequently doesn't believe her children are real and has shown some aggressive acting out. She has a longstanding diagnosis of schizophrenia and has responded well in the past. It's my medical opinion that without antipsychotic medication she would represent a significant risk to herself or others within 30 days, particularly given her recent polydipsia and subsequent hyponatremia. Repeat sodium in am. 05/29 - Pt continue to demonstrate irritability, paranoia, and delusions - seeming to worsen since admission. Given that quetiapine had sustained the patient for several years - we will encourage patient resume the medication, likely will need higher doses that she had been taking prior to admission. We can also determine if interim titration of haloperidol would be beneficial as well until symptoms are improved. - Daughter admits she has been worried about the patient and she has noticed wor sening of condition as well. - Will continue attempts to build rapport with the patient and encourage medication compliance. 05/30 -patient remains irritable and preoccupied with delusions of persecution involving hospital staff. After discussion with her daughter, and given concerns for poor medication adherence/confusion and living alone, we will titrate her haloperidol, while discontinuing aripiprazole and tapering off quetiapine, with a plan to transition to Haldol Decanoate if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
[2020-06-20] MEDS: METOPROLOL TARTRATE 25 MG TAB PO SCH (09:12)
[2020-06-20] MEDS: haloperidoL 5 MG TAB PO SCH (09:12)
[2020-06-20] MEDS: QUEtiapine FUMARATE 200 MG TAB PO SCH (09:12)
[2020-06-20] MEDS: lisinopril 10 MG TAB PO SCH (09:12)
[2020-06-20] MEDS: SITagliptin PHOSPHATE 100 MG TAB PO SCH (09:12)
[2020-06-20] MEDS: NICOTINE 21 MG/24 HR TDSY TD SCH (09:36)
== END 2020-06-20 11:30 | disposition home or self-care (01) | DRG 885 ==
LOC: ED 13:01 → 3S 18:21

== ENCOUNTER 2024-09-08 14:01 | Inpatient (IN) ==
--- NOTE | 2024-09-08 14:34 | Emergency Department Note ---
Impression & Plan Urinary tract infection Admission ED Provider Note HPI: History obtained from patient's daughter at the bedside. The patient is a 74-year-old female with history of dementia, paranoid schizophrenia, history of squamous cell lung cancer currently on daily radiation therapy and weekly chemotherapy (follows with [facility] hematology/oncology), who presents the emergency department today over concern for rash and increasing confusion. Patient's daughter notes that the patient developed a rash yesterday, it appears to be erythematous and blanchable in nature mostly to the bilateral lower extremities. This was noted today during the patient's radiation oncology session and she was advised to utilize Benadryl. Patient also had a urine sample done on Thursday that was concerning for UTI but she has not yet started treatment. Patient's daughter states that the patient does seem to get more confused when she has had UTIs in the past. On arrival here to the ED, the patient is mildly tachycardic but otherwise hemodynamically stable, she appears to be in no acute distress on arrival. ROS: - Per HPI Differential Diagnosis: Sepsis, UTI, pneumonia, dehydration/acute kidney injury, critical electrolyte abnormalities, amongst other potential pathologies. *Outpatient medications and allergy history reviewed. PE: General: Alert HEENT: Normocephalic, trachea midline Eyes: Extraocular eye movement is intact, no scleral erythema Pulmonary: Clear to auscultation bilaterally, no wheezing Cardio: Tachycardic rate with regular rhythm GI: Abdomen is soft to palpation : No suprapubic tenderness MSK: No evidence of trauma or malformation of the extremities, no edema Skin: No evidence of rash Neuro: Alert, no focal deficits Psychiatric: Cooperative INDEPENDENT INTERPRETATIONS: cafeteria monitor: (As interpreted by myself): - An order was placed for continuous cardiac monitoring - Patient was noted to be in sinus rhythm with a rate of 114 Interventions provided in ED: - IV fluid bolus, IV ceftriaxone Medical Decision Making: IV was established and lab work obtained, patient was placed on quality assurance monitor body. Lab work shows a mild leukopenia at 2.98, hemoglobin is normal, platelet count is normal, CMP does not show any evidence of any critical findings, there is no acute kidney injury, procalcitonin is within normal limits at 0.44, urinalysis shows 2+ leukocyte esterase with significant pyuria and 4+ bacteria, no epithelial cells, will send for culture. Viral panel testing is negative. I suspect at this point given the patient's history that likely she is suffering from UTI that is causing her tachycardia, leukopenia, and some mild change in her baseline mental status. I discussed all of this with the patient and her daughter at the bedside, she remains tachycardic despite an IV fluid bolus, they would be most comfortable with admission at this time which I think is reasonable given her history of squamous cell cancer of the lung currently on chemo and radiation therapy. [facility] hospitalist service was consulted for admission, case was discussed with the on-call midlevel provider Shantal Taylor PA-C, and patient was placed for admission in stable condition. Consultants/Discussions held with other healthcare providers: - Hospitalist, Dr. Fernandez Disposition discussion held by myself with: - Patient and patient's daughter at the bedside Diagnosis: 1. Urinary tract infection, acute 2. Sinus tachycardia 3. Leukopenia, acute 4. Altered mental status Disposition: Admission Kyle Rashid DO Emergency Medicine Past Med/Surg History Problem List (Updated 09/08/24 @ 17:19 by Kyle Rashid DO) Urinary tract infection (Acute) Squamous cell carcinoma of lung, stage II (Chronic 06/28/24) Hypertension Dyslipidemia Schizophrenia Diabetes Hyponatremia Right leg swelling Acute hyponatremia (Acute) Acute UTI (urinary tract infection) (Acute) Noncompliance with medication regimen (Acute) Medical History (Updated 09/08/24 @ 17:19 by Kyle Rashid DO) Port-A-Cath in place right chest Implantable loop recorder present Wound of foot Surgical History (Updated 07/27/24 @ 08:27 by Noemy Perez RN) Hx of tubal ligation S/P tonsillectomy Status post bronchoscopy with biopsy 06/28/24 Dr. aTwanna Luther Family History (Updated 07/27/24 @ 08:30 by Noemy Perez, NAEEM) Mother Scleroderma Father Myocardial infarction, Onset Age: 72 Sister Ovarian cancer Cervical cancer, Onset Age: 43 Surgery + Chemo Social History (Updated 07/27/24 @ 08:32 by Noemy Perez, NAEEM) Smoking Status: Never smoker Tobacco Type: Cigarettes Age Started Using Tobacco: 19; Age Quit Using Tobacco: 72; packs per day: 2; Cigarettes Per Day: "I dont know"; Second Hand Exposure: Yes; Do You Dip or Chew Tobacco: No; Hx Alcohol Use: No Hx Substance Use: No Preferred Language: Ukrainian Communication Ability: Effective Visual Impairment: No Limitations Hearing Ability: Normal Mitten Stitcher Required: No Beliefs That Will Affect Care: None marital status: Current Living Situation: Alone Current Living Situation Comment: 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 current occupational status: disabled How many Children do You have: 4 Feels Safe at Home: Yes Assistive Devices: Cane Allergies Allergies Allergy/AdvReac Type Severity Reaction Status Date / Time Penicillins Allergy Unknown Unknown Verified 09/08/24 17:30 Sulfa (Sulfonamide Allergy Unknown Unknown Verified 09/08/24 17:30 Antibiotics) metformin AdvReac Severe Hypglycemia Verified 09/08/24 17:30 Home Meds Home Medications Medication Instructions Recorded Confirmed simvastatin 40 mg tablet 40 mg PO PM 05/20/20 09/08/24 alendronate 70 mg tablet (Fosamax) 70 mg PO WK 07/27/24 09/08/24 aspirin 81 mg tablet,delayed 81 mg PO QPM 07/27/24 09/08/24 release calcium 600 mg (as carbonate)-vit 1 tab PO QDL 07/27/24 09/08/24 D3 10 mcg (400 unit) chewable tablet (Calcium 600 with Vitamin D3) cranberry 500 mg capsule 500 mg PO QDL 07/27/24 09/08/24 haloperidol 10 mg tablet 10 mg PO HS 07/27/24 09/08/24 haloperidol 2 mg tablet 2 mg PO QAM 07/27/24 09/08/24 haloperidol 5 mg tablet 5 mg PO TID PRN Unknown 07/27/24 09/08/24 haloperidol decanoate 100 mg/mL 100 mg IM MONTHLY 07/27/24 09/08/24 intramuscular solution insulin glargine 100 unit/mL (3 25 unit subcut QPM 07/27/24 09/08/24 mL) subcutaneous pen (Lantus Solostar U-100 Insulin) losartan 25 mg tablet 25 mg PO QAM 07/27/24 09/08/24 memantine 10 mg tablet 10 mg PO QPM 07/27/24 09/08/24 memantine 5 mg tablet 5 mg PO QAM 07/27/24 09/08/24 metoprolol tartrate 25 mg tablet 37.5 mg PO QPM 07/27/24 09/08/24 mirtazapine 45 mg disintegrating 45 mg PO HS 07/27/24 09/08/24 tablet (Remeron SolTab) hyrcknaw-hxyq-eetby acid 120 1 tab PO QDL 07/27/24 09/08/24 mcg-herbal no.293 25 mg chewable tablet (Alive Women's MVI No Sugar) omega 6-clu-kau-fish oil 1,000 mg 1 cap PO QDL 07/27/24 09/08/24 (120 mg-180 mg) capsule (Fish Oil) ondansetron 8 mg disintegrating 8 mg PO Q8H PRN nausea and vomiting 07/27/24 09/08/24 tablet prochlorperazine maleate 10 mg 10 mg PO Q6H PRN Nausea And 07/27/24 09/08/24 tablet (Compazine) Vomiting tamsulosin 0.4 mg capsule 0.4 mg PO QAM 07/27/24 09/08/24 quetiapine 200 mg tablet 200 mg PO HS 09/08/24 09/08/24 quetiapine 25 mg tablet 25 mg PO HS 09/08/24 09/08/24 quetiapine 50 mg tablet 50 mg PO QAM 09/08/24 09/08/24 Previous Rx's Medication Instructions Recorded cefdinir 300 mg capsule 300 mg PO BID 5 days #10 caps 09/08/24 Results & Data (ED) Vital Signs Vital Signs - 24 hr 09/08/24 14:07 09/08/24 14:58 09/08/24 15:00 Temperature 36.4 C L Temperature Source Temporal Artery Scan Pulse Rate 116 H Pulse Rate from SpO2 Sensor Respiratory Rate 20 Respiratory Effort / Characteristics Non-Labored Spontaneous Respiratory Depth Normal Respiratory Pattern Regular Blood Pressure 125/63 118/68 102/62 Blood Pressure Mean 83 99 80 Blood Pressure Position Sitting Pulse Oximetry 97 Oxygen Delivery Method Room Air Sepsis Recent Fever Within 48 Hours Yes Sepsis New/Unexplained Change in Mental Status N/A Sepsis Action Taken by Nursing No Action Required 09/08/24 15:03 09/08/24 15:30 09/08/24 15:42 Temperature Temperature Source Pulse Rate 111 H Pulse Rate from SpO2 Sensor 111 H 115 H Respiratory Rate 22 22 Respiratory Effort / Characteristics Respiratory Depth Respiratory Pattern Blood Pressure 143/77 H Blood Pressure Mean 106 Blood Pressure Position Pulse Oximetry 96 97 Oxygen Delivery Method Sepsis Recent Fever Within 48 Hours Sepsis New/Unexplained Change in Mental Status Sepsis Action Taken by Nursing 09/08/24 15:59 09/08/24 16:00 09/08/24 16:30 Temperature Temperature Source Pulse Rate 105 H 111 H Pulse Rate from SpO2 Sensor Respiratory Rate 14 Respiratory Effort / Characteristics Respiratory Depth Respiratory Pattern Blood Pressure 130/82 Blood Pressure Mean 109 Blood Pressure Position Pulse Oximetry 96 Oxygen Delivery Method Sepsis Recent Fever Within 48 Hours Sepsis New/Unexplained Change in Mental Status Sepsis Action Taken by Nursing 09/08/24 16:33 Temperature Temperature Source Pulse Rate 111 H Pulse Rate from SpO2 Sensor 112 H Respiratory Rate 20 Respiratory Effort / Characteristics Respiratory Depth Respiratory Pattern Blood Pressure Blood Pressure Mean Blood Pressure Position Pulse Oximetry 97 Oxygen Delivery Method Sepsis Recent Fever Within 48 Hours Sepsis New/Unexplained Change in Mental Status Sepsis Action Taken by Nursing Laboratory Data 09/08/24 14:46 09/08/24 14:46 Lab Results 09/08/24 09/08/24 Range/Units 14:46 15:44 WBC 2.98 L (4.8-10.8) K/ul RBC 3.86 L (4.20-5.40) M/uL Hgb 12.0 (12.0-16.0) g/dl Hct 34.6 L (37.0-47.0) % MCV 89.6 (80.0-100.0) fL MCH 31.1 (25.0-34.0) pg MCHC 34.7 (32.0-36.0) g/dL RDW Std Deviation 43.0 (36.4-46.3) fL RDW Coeff of Gissel 13.5 (11.5-14.5) % Plt Count 159 (130-400) K/uL MPV 10.5 (9.4-12.4) fL Immature Gran % (Auto) 0.3 % Neut % (Auto) 93.0 % Lymph % (Auto) 4.0 % Osborne % (Auto) 1.3 % Eos % (Auto) 0.7 % Baso % (Auto) 0.7 % Neut # (Auto) 2.77 (1.40-6.50) K/uL Lymph # (Auto) 0.12 L (1.20-3.40) K/uL Osborne # (Auto) 0.04 L (0.11-0.59) K/uL Eos # (Auto) 0.02 (0.00-0.50) K/uL Baso # (Auto) 0.02 (0.00-0.20) K/uL Immature Gran # (Auto) 0.01 (0.01-0.20) K/uL Tear Drop Cells 1+ Sodium 134 L (136-145) mmol/L Potassium 3.9 (3.5-5.1) mmol/L Chloride 100 (98-107) mmol/L Carbon Dioxide 31 (21-32) mmol/L Anion Gap 3 (3-11) BUN 21 (6-23) mg/dl Creatinine 0.85 (0.6-1.2) mg/dl Est Cr Clr Drug Dosing Not Reportable eGFR 71.40 BUN/Creatinine Ratio 24.7 H (10-20) Glucose 188 H (70-99(Fasting)) mg/dl Lactate 1.5 (0.4-2.0) mmol/L Calcium 8.9 (8.6-10.3) mg/dl Magnesium 2.0 (1.7-2.4) mg/dl Total Bilirubin 0.6 (0.2-1.0) mg/dl Direct Bilirubin 0.1 (0-0.2) mg/dl AST 191 H (13-39) U/L ALT 68 H (7-52) U/L Alkaline Phosphatase 62 (34-104) U/L Total Protein 6.6 (6.0-8.3) gm/dl Albumin 3.9 (3.4-5.0) gm/dl Procalcitonin 0.44 (0-0.5) ng/ml Urine Color Dark Yellow Urine Appearance Cloudy A (Clear) Urine pH 5.5 (4.5-7.5) Ur Specific Ruth 1.020 (1.000-1.030) Urine Protein 1+ H (Negative) Urine Glucose (UA) 3+ H (Negative) Urine Ketones Negative (Negative) Urine Blood 3+ H (Negative) Urine Nitrite Negative (Negative) Urine Bilirubin Negative (Negative) Urine Urobilinogen Negative (Negative) Ur Leukocyte Esterase 2+ H (Negative) Urine WBC (Auto) >50 H (0-5) /hpf Urine RBC (Auto) 0-2 (0-2) /hpf U Hyaline Cast (Auto) 0-2 (0-2) /lpf U Epithel Cells (Auto) 0-2 (0-2) /hpf Urine Bacteria (Auto) 4+ H (None Seen) SARS-CoV-2 (PCR) NEGATIVE (Negative) Influenza Type A (PCR) Negative (Neg) Influenza Type B (PCR) Negative (Neg) RSV (RT-PCR) Negative (Neg) Administered Medications Sodium Chloride (Nss) 1,000 mls @ 999 mls/hr IV .Q1H1M ONE Stop: 09/08/24 18:53 Last Admin: 09/08/24 17:56 Dose: 999 mls/hr Documented By: CEF Discontinued Medications Sodium Chloride (Nss) 1,000 mls @ 999 mls/hr IV .Q1H1M IVONE Stop: 09/08/24 15:30 Last Infusion: 09/08/24 17:56 Dose: Infused Documented By: Admin: 09/08/24 15:01 Dose: 999 mls/hr Documented By: CEF Ceftriaxone Sodium (Rocephin) 2,000 mg in 50 mls @ 100 mls/hr IV NOW STA Stop: 09/08/24 16:43 Last Infusion: 09/08/24 17:13 Dose: Infused Documented By: Admin: 09/08/24 16:20 Dose: 100 mls/hr Documented By: CEF Imaging Data Radiologist's Impression: Chest X-Ray 09/08/24 14:16 XR chest 1V portable CLINICAL HISTORY: Sepsis COMPARISON STUDY: 06/17/2024 FINDINGS: There is no airspace opacity or pleural effusion. There is no pneumothorax or significant atelectasis. The heart and pulmonary vascularity are unremarkable. There is a right jugular MediPort catheter in place with the tip near the cavoatrial junction. There is a loop recorder projected over the left heart. IMPRESSION: No acute cardiopulmonary process identified. ACT 112: Negative or not required by law. Electronically signed by: Esme Enrique M.D. 09/08/2024 3:11 PM Discharge Plan Visit Data Chief Complaint: Urinary Symptoms Stated Complaint: RASH, DISORIENTATION, UTI ED Provider: Kyle Rashid Discharge Problem: Urinary tract infection Patient Disposition: Admitted As Inpatient Condition: Good Discharge Instructions Krames/Other Patient Handouts: ED [facility] UTI Forms Stand Alone Forms: [facility], Important Visit Information Prescriptions Prescriptions: New cefdinir 300 mg capsule 300 mg PO BID 5 Days Qty: 10 0RF No Action haloperidol 5 mg tablet 5 mg PO TID PRN (Reason: Unknown) haloperidol 2 mg tablet 2 mg PO QAM haloperidol 10 mg tablet 10 mg PO HS haloperidol decanoate 100 mg/mL solution 100 mg IM MONTHLY tamsulosin 0.4 mg capsule 0.4 mg PO QAM losartan 25 mg tablet 25 mg PO QAM prochlorperazine maleate [Compazine] 10 mg tablet 10 mg PO Q6H PRN (Reason: Nausea And Vomiting) ondansetron 8 mg tablet,disintegrating 8 mg PO Q8H PRN (Reason: nausea and vomiting) Rx Instructions: per chemo regimen insulin glargine [Lantus Solostar U-100 Insulin] 100 unit/mL (3 mL) insulin pen 25 unit subcut QPM alendronate [Fosamax] 70 mg tablet 70 mg PO WK Rx Instructions: Sundays memantine 10 mg tablet 10 mg PO QPM memantine 5 mg tablet 5 mg PO QAM mirtazapine [Remeron SolTab] 45 mg tablet,disintegrating 45 mg PO HS aspirin 81 mg tablet,delayed release (DR/EC) 81 mg PO QPM Calcium 600 with Vitamin D3 600 mg-10 mcg (400 unit) tablet,chewable 1 tab PO QDL cranberry 500 mg capsule 500 mg PO QDL Rx Instructions: administer with meals omega 6-lgh-xue-fish oil [Fish Oil] 1,000 (120-180) mg capsule 1 cap PO QDL Alive Women's MVI No Sugar 120 mcg- 25 mg tablet,chewable 1 tab PO QDL simvastatin 40 mg Tablet 40 mg PO PM metoprolol tartrate 25 mg tablet 37.5 mg PO QPM quetiapine 25 mg tablet 25 mg PO HS Rx Instructions: Take w/ 200mg to equal 225mg at bedtime. quetiapine 200 mg tablet 200 mg PO HS Rx Instructions: Take w/ 25mg to equal 225mg at bedtime. quetiapine 50 mg tablet 50 mg PO QAM Referrals Referrals: Antelmo Hill MD [Primary Care Provider] -
[2024-09-08] MEDS: SODIUM CHLORIDE 0.9% 1,000 ML IV SCH ×2 (15:01→18:35)
[2024-09-08 15:12] LABS: Hematocrit (blood only) 34.6 % (37.0-47.0); Mean Corpuscular Hemoglobin 31.1 pg (25.0-34.0); Mean Corpuscular Hgb Conc 34.7 g/dL (32.0-36.0); Mean Corpuscular Volume 89.6 fL (80.0-100.0); Mean Platelet Volume 10.5 fL (9.4-12.4); Platelet Count 159 K/uL (130-400); RDW Coefficient of Variation 13.5 % (11.5-14.5); Red Blood Count 3.86 M/uL (4.20-5.40); White Blood Count 2.98 K/ul (4.8-10.8)
--- NOTE | 2024-09-08 15:12 | XRay Report ---
XR chest 1V portable CLINICAL HISTORY: Sepsis COMPARISON STUDY: 06/17/2024 FINDINGS: There is no airspace opacity or pleural effusion. There is no pneumothorax or significant a telectasis. The heart and pulmonary vascularity are unremarkable. There is a right jugular MediPort c atheter in place with the tip near the cavoatrial junction. There is a loop recorder projected over t he left heart. IMPRESSION: No acute cardiopulmonary process identified. ACT 112: Negative or not required by law. Electronically signed by: Esme Enrique M.D. 09/08/2024 3:11 PM
[2024-09-08 15:30] LABS: Alanine Aminotransferase 68 U/L (7-52); Albumin Level 3.9 gm/dl (3.4-5.0); Alkaline Phosphatase 62 U/L (34-104); Anion Gap 3 (3-11); Aspartate Aminotransferase 191 U/L (13-39); BUN Creatinine Ratio 24.7 (10-20); Bilirubin Direct 0.1 mg/dl (0-0.2); Bilirubin,Total 0.6 mg/dl (0.2-1.0); Blood Urea Nitrogen 21 mg/dl (6-23); Calcium 8.9 mg/dl (8.6-10.3); Carbon Dioxide 31 mmol/L (21-32); Chloride 100 mmol/L (98-107); Glucose 188 mg/dl (70-99(Fasting)); Potassium 3.9 mmol/L (3.5-5.1); Sodium 134 mmol/L (136-145); Total Protein 6.6 gm/dl (6.0-8.3)
[2024-09-08 15:31] LABS: Basophils # (auto) 0.02 K/uL (0.00-0.20); Basophils % (auto) 0.7 %; Eosinophils # (auto) 0.02 K/uL (0.00-0.50); Eosinophils % (auto) 0.7 %; Immature Granulocytes # (auto) 0.01 K/uL (0.01-0.20); Immature Granulocytes % (auto) 0.3 %; Lymphocytes # (auto) 0.12 K/uL (1.20-3.40); Monocytes # (auto) 0.04 K/uL (0.11-0.59); Monocytes % (auto) 1.3 %; Neutrophils # (auto) 2.77 K/uL (1.40-6.50); Tear Drop Cells 1+
[2024-09-08 15:59] LABS: Appearance Urine Cloudy (Clear); Bacteria Urine Automated 4+ (None Seen); Bilirubin Urine Negative (Negative); Blood Urine 3+ (Negative); Cast Urine Automated 0-2 /lpf (0-2); Color Urine Dark Yellow; Epithelial Cell Urine Auto 0-2 /hpf (0-2); Glucose Urine UA 3+ (Negative); Ketones Urine Negative (Negative); Leukocyte Esterase Urine 2+ (Negative); Nitrite Urine Negative (Negative); Protein Urine 1+ (Negative); RBC Urine Automated 0-2 /hpf (0-2); Urobilinogen Urine Negative (Negative); WBC Urine Automated >50 /hpf (0-5); pH Urine 5.5 (4.5-7.5)
[2024-09-08] MEDS: cefTRIAXone SODIUM 2,000 MG/50 ML BAG IV STA (16:20)
[2024-09-08 16:56] LABS: Influenza A virus by PCR Negative (Neg); Influenza B virus by PCR Negative (Neg); RSV by PCR Negative (Neg); SARS CoV2 RNA(COVID-19) Ceph NEGATIVE (Negative)
[2024-09-08] MEDS: SODIUM CHLORIDE 0.9% 1,000 ML IV ONE (17:56)
--- NOTE | 2024-09-08 18:30 | History & Physical Report ---
Date of Service September 08, 2024 Assessment & Plan (1) Sepsis: (2) Urinary tract infection: (3) Squamous cell carcinoma of lung, stage II: (4) Diabetes: (5) Macular erythematous rash: (6) Hypertension: (7) Schizophrenia: Plan This is a 74 yr old F who has a significant PMH of T2DM insulin dependent, HTN, HLD, SCC of Right Lung stage IIB currently receiving taxol/carboplatin weekly and daily XRT, schizophrenia, mood disorder, dementia and osteoporosis who presents to ED 2/2 increased confusion, disorientation x 2 days. #Sepsis #UTI #Metabolic encephalopathy admit to med tele pt meets sepsis criteria 2/2 tachycardia and leukopenia outpt urine culture on 09/06 grew 10k-100k E. coli, sensitive to ceftriaxone continue daily IV ceftriaxone NSS 80cc/hr x 2 L, re eval fluid needs in a.m. allow eating/drinking as tolerating await urine and blood cultures #Generalized Weakness suspect 2/2 UTI and currently undergoing chemotherapy PT/OT #SCC of right lung stage IIB receiving carboplatin,taxol, last dose 09/07 receiving weekly also receiving daily radiation, will consult rad/onc to continue tx while in pt, due at 09 #Diffuse macular rash suspect drug eruption, possibly taxol she trialed benadryl w/o improvement will give hydrocortisone 100mg x 1 and start daily zyrtec for now, re assess tomorrow to determine need for additional dose may need to reach out to Dr. Dumas to inform him of drug eruption to determine if related to taxol #Elevated LFTS AST 191, ALT 68, repeat in a.m. no abd pain or GI sx, maybe in setting of illness LFTS in [facility] sx have been WNL, last done 09/06 if worsens of continues consider liver US #T2DM, insulin dependent a1c 8.4 on 09/06/24 continue lantus/novolog per protocol #Paranoid schizophrenia stable on haldol and seroquel #Dementia chronic, stable on memantine #HTN chronic, stable Continue metoprolol, will hold losartan until re assessed in a.m #DVT ppx: SQ Lovenox FULL CODE PCP: Liz Dispo: admit to med tele, PT/OT consults Pt was seen and examined in collaboration with Dr. Fernandez, please see addendum I spent a total of 65 minutes coordinating, documenting and providing care for this patient excluding time spent in the performance of separately billed services or time spent by another provider/QHP. History of Present Illness Chief Complaint: Increased confusion, disorientation x 2 days. Primary Care Provider: Antelmo Hill MD This is a 74 yr old F who has a significant PMH of T2DM insulin dependent, HTN, HLD, SCC of Right Lung stage IIB currently receiving taxol/carboplatin weekly and daily XRT, schizophrenia, mood disorder, dementia and osteoporosis who presents to ED 2/2 increased confusion, disorientation x 2 days. Daughter is at bedside who helps elicit history. Pt received chemotherapy yesterday. She had lab work and a urine drawn on 09/06 that showed she had a UTI and daughter states they were just told that today. Daughter notes increased confusion, disorientation, weakness and walking into [facility]. She generally feels she isn't herself. After receiving chemo last evening she developed a diffuse red rash all over body. It is not painful for itchy. She tried benadryl w/o improvement. Pt reports hx of UTI before. She is also receiving daily radiation tx and last tx was this morning. She denies f/c/s, chest pain, n/v/d, abd pain, dysuria, increased urg/freq with urination or hematuria. She does have chronic sob/cough 2/2 lung cancer. She has been taking her medications as prescribed. From a paranoid schizophrenia standpoint she has been doing very well on current medication regimen. In ED pt met sepsis criteria 2/2 leukopenia and tachycardia. She received 1L of IVF and was started on IV ceftriaxone. Allergies Allergy/AdvReac Type Severity Reaction Status Date / Time Penicillins Allergy Unknown Unknown Verified 09/08/24 17:30 Sulfa (Sulfonamide Allergy Unknown Unknown Verified 09/08/24 17:30 Antibiotics) metformin AdvReac Severe Hypglycemia Verified 09/08/24 17:30 Home Medications Medication Instructions Recorded Confirmed Type simvastatin 40 mg tablet 40 mg PO PM 05/20/20 09/08/24 History alendronate 70 mg tablet (Fosamax) 70 mg PO WK 07/27/24 09/08/24 History aspirin 81 mg tablet,delayed 81 mg PO QPM 07/27/24 09/08/24 History release calcium 600 mg (as carbonate)-vit 1 tab PO QDL 07/27/24 09/08/24 History D3 10 mcg (400 unit) chewable tablet (Calcium 600 with Vitamin D3) cranberry 500 mg capsule 500 mg PO QDL 07/27/24 09/08/24 History haloperidol 10 mg tablet 10 mg PO HS 07/27/24 09/08/24 History haloperidol 2 mg tablet 2 mg PO QAM 07/27/24 09/08/24 History haloperidol 5 mg tablet 5 mg PO TID PRN Unknown 07/27/24 09/08/24 History haloperidol decanoate 100 mg/mL 100 mg IM MONTHLY 07/27/24 09/08/24 History intramuscular solution insulin glargine 100 unit/mL (3 25 unit subcut QPM 07/27/24 09/08/24 History mL) subcutaneous pen (Lantus Solostar U-100 Insulin) losartan 25 mg tablet 25 mg PO QAM 07/27/24 09/08/24 History memantine 10 mg tablet 10 mg PO QPM 07/27/24 09/08/24 History memantine 5 mg tablet 5 mg PO QAM 07/27/24 09/08/24 History mirtazapine 45 mg disintegrating 45 mg PO HS 07/27/24 09/08/24 History tablet (Remeron SolTab) gieztzsl-knfo-jwuyu acid 120 1 tab PO QDL 07/27/24 09/08/24 History mcg-herbal no.293 25 mg chewable tablet (Alive Women's MVI No Sugar) omega 2-bdh-prv-fish oil 1,000 mg 1 cap PO QDL 07/27/24 09/08/24 History (120 mg-180 mg) capsule (Fish Oil) ondansetron 8 mg disintegrating 8 mg PO Q8H PRN nausea and vomiting 07/27/24 09/08/24 History tablet prochlorperazine maleate 10 mg 10 mg PO Q6H PRN Nausea And 07/27/24 09/08/24 History tablet (Compazine) Vomiting tamsulosin 0.4 mg capsule 0.4 mg PO QAM 07/27/24 09/08/24 History cefdinir 300 mg capsule 300 mg PO BID 5 days #10 caps 09/08/24 Rx metoprolol succinate 25 mg 37.5 mg PO PM 09/08/24 09/08/24 History tablet,extended release 24 hr quetiapine 200 mg tablet 200 mg PO HS 09/08/24 09/08/24 History quetiapine 25 mg tablet 25 mg PO HS 09/08/24 09/08/24 History quetiapine 50 mg tablet 50 mg PO QAM 09/08/24 09/08/24 History Past Med/Surg History Problem List (Updated 09/08/24 @ 19:22 by Shantal Taylor PA-C) Macular erythematous rash Sepsis Urinary tract infection (Acute) Squamous cell carcinoma of lung, stage II (Chronic 06/28/24) Hypertension Dyslipidemia Schizophrenia Diabetes Hyponatremia Right leg swelling Acute hyponatremia (Acute) Acute UTI (urinary tract infection) (Acute) Noncompliance with medication regimen (Acute) Medical History Port-A-Cath in place right chest Implantable loop recorder present Wound of foot Surgical History Hx of tubal ligation S/P tonsillectomy Status post bronchoscopy with biopsy 06/28/24 Dr. 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: No Beliefs That Will Affect Care: None marital status: Current Living Situation: Alone 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 current occupational status: disabled How many Children do You have: 4 Feels Safe at Home: Yes Assistive Devices: Cane Review of Systems Review of Systems: All systems reviewed & are unremarkable except as noted in HPI & below Physical Exam Physical Exam: constitutional: WD/WN, vitals as above, NAD, sitting up in bed, flat affected, conversing easily Head: Normocephalic, Atraumatic Eyes: PERRL, conjunctivae normal, anicteric sclerae ENMT: external ear and nose normal, oropharynx normal Neck: trachea midline, no thyromegaly normal visual inspection dry membranes Respiratory: normal respiratory effort, lungs clear to auscultation, no wheeze, rales, rhonchi. Normal insp/exp effort, no accessory muscle use Cardiovascular: tachycardic rate regular rhyhtm, no murmur, no edema Vessels: no JVD or carotid bruit Chest: normal inspection of chest Abdomen: normal bowel sounds, soft, nontender, no hepatosplenomegaly Musculoskeletal: no cyanosis or clubbing, extremities motor strength 5/5 Skin: +diffuse macular blanchable rash all over body sparing hands/feet, warm and dry normal turgor Neurologic: no face palsy, no dysarthria CN's II-XI intact bilaterally and moves all extremities Psychiatric: A+Ox3, euthymic affect Lymphatic: no cervical or axillary lymphadenopathy : deferred Results & Data Results & Data Vital Signs (Past 12 Hours) Vital Signs Temp Pulse Resp BP Pulse Ox O2 Del Method 09/08/24 16:33 111 H 20 97 09/08/24 16:30 130/82 09/08/24 16:00 111 H 09/08/24 15:59 105 H 14 96 09/08/24 15:42 22 97 09/08/24 15:30 143/77 H 09/08/24 15:03 111 H 22 96 09/08/24 15:00 102/62 09/08/24 14:58 118/68 09/08/24 14:07 36.4 C L 116 H 20 125/63 97 Room Air Laboratory Results I have independently reviewed and interpreted patient's admitting labs including CBC, CMP, lactic, mag, procal, ua Diagnostic Findings Chest X-Ray 09/08/24 14:16 XR chest 1V portable CLINICAL HISTORY: Sepsis COMPARISON STUDY: 06/17/2024 FINDINGS: There is no airspace opacity or pleural effusion. There is no pneumothorax or significant atelectasis. The heart and pulmonary vascularity are unremarkable. There is a right jugular MediPort catheter in place with the tip near the cavoatrial junction. There is a loop recorder projected over the left heart. IMPRESSION: No acute cardiopulmonary process identified. ACT 112: Negative or not required by law. Electronically signed by: Esme Enrique M.D. 09/08/2024 3:11 PM Medications Administered Medication List Sodium Chloride (Nss) 1,000 mls @ 999 mls/hr IV .Q1H1M ONE Stop: 09/08/24 18:53 Last Admin: 09/08/24 17:56 Dose: 999 mls/hr Documented By: CEF Discontinued Medications Sodium Chloride (Nss) 1,000 mls @ 999 mls/hr IV .Q1H1M IVONE Stop: 09/08/24 15:30 Last Infusion: 09/08/24 17:56 Dose: Infused Documented By: Admin: 09/08/24 15:01 Dose: 999 mls/hr Documented By: CEF Ceftriaxone Sodium (Rocephin) 2,000 mg in 50 mls @ 100 mls/hr IV NOW STA Stop: 09/08/24 16:43 Last Infusion: 09/08/24 17:13 Dose: Infused Documented By: Admin: 09/08/24 16:20 Dose: 100 mls/hr Documented By: CEF ECG Additional Comments: I have independently reviewed and interpreted patient's admitting EKG which revealed: 110 ST with fusion complexes qtc 460ms COVID-19 Results Results COVID-19 Adm Lab Results: RBC 3.86 M/uL (4.20-5.40) L 09/08/24 WBC 2.98 K/ul (4.8-10.8) L 09/08/24 Hgb 12.0 g/dl (12.0-16.0) 09/08/24 Hct 34.6 % (37.0-47.0) L 09/08/24 Plt Count 159 K/uL (130-400) 09/08/24 Neutrophils (%) (Auto) 93.0 % 09/08/24 Lymphocytes (%) (Auto) 4.0 % 09/08/24 Monocytes # (Auto) 0.04 K/uL (0.11-0.59) L 09/08/24 Immature Granulocyte % (Auto) 0.3 % 09/08/24 Neutrophils # (Auto) 2.77 K/uL (1.40-6.50) 09/08/24 Lymphocytes # (Auto) 0.12 K/uL (1.20-3.40) L 09/08/24 Monocytes # (Auto) 0.04 K/uL (0.11-0.59) L 09/08/24 Basophils # (Auto) 0.02 K/uL (0.00-0.20) 09/08/24 Immature Granulocyte # (Auto) 0.01 K/uL (0.01-0.20) 5 Tear Drop Cells 1+ 09/08/24 Na 134 mmol/L (136-145) L 09/08/24 K 3.9 mmol/L (3.5-5.1) 09/08/24 Cl 100 mmol/L (98-107) 09/08/24 CO2 31 mmol/L (21-32) 09/08/24 Anion Gap 3 (3-11) 09/08/24 BUN 21 mg/dl (6-23) 09/08/24 Creatinine 0.85 mg/dl (0.6-1.2) 09/08/24 BUN/Creatinine Ratio 24.7 (10-20) H 09/08/24 Glucose Level 188 mg/dl (70-99(Fasting)) H 09/08/24 Ca 8.9 mg/dl (8.6-10.3) 09/08/24 Total Bilirubin 0.6 mg/dl (0.2-1.0) 09/08/24 Direct Bilirubin 0.1 mg/dl (0-0.2) 09/08/24 AST/SGOT 191 U/L (13-39) H 09/08/24 ALT/SGPT 68 U/L (7-52) H 09/08/24 Alkaline Phosphatase 62 U/L (34-104) 09/08/24 Total Protein 6.6 gm/dl (6.0-8.3) 09/08/24 Albumin 3.9 gm/dl (3.4-5.0) 09/08/24 Procalcitonin 0.44 ng/ml (0-0.5) 09/08/24 COVID-19 PCR NEGATIVE (Negative) 09/08/24 Influenza Virus Type A (PCR) Negative (Neg) 09/08/24 Influenza Virus Type B (PCR) Negative (Neg) 09/08/24 Chest X-Ray 09/08/24 Code Status & VTE Plan Code Status FULL CODE VTE Prophylaxis Plan VTE Prophylaxis will be ordered: Yes Supervising Physician Co-Signing Physician Notes Patient is a 74-year-old female with history of SCC lung cancer ongoing chemotherapy and radiation therapy, diabetes mellitus, hypertension, schizophrenia, dementia and other medical problems presents with history of increasing confusion for the past 2 days. Patient last chemotherapy was yesterday and she developed generalized erythematous rash. Currently she is oriented but patient's daughter states that she has been more confused from her baseline. She denies any dysuria, hematuria but her outpatient urine culture grew E. coli. Patient reports chronic cough, dyspnea on exertion but otherwise denies any chest pain, nausea, vomiting, abdominal pain. Please review HPI for complete details of presentation. I personally reviewed blood work and imaging studies. Noted leukopenia, sodium 134, glucose 188, normal lactate levels, transaminitis AST 191, ALT 68, normal procalcitonin. UA suggestive of possible UTI. Serology negative for COVID, influenza, RSV. Chest x-ray showed no acute findings. Physical Exam: Vitals signs as noted above General Appearance:Moderately built and nourished, no apparent distress Head: normocephalic, Atraumatic Eyes: normal inspection, EOMI Neck: supple, Trachea midline Respiratory/Chest: Normal breath sounds, CTA, No accessory muscle use Cardiovascular: S1, S2, No murmur, tachycardia Abdomen/GI:Soft, Non tender, Bowel sounds present Extremities/Musculoskeletal:normal inspection, trace edema Neurologic/Psych:AAOX3, grossly no focal neurological deficits Skin: normal color, warm,+ generalized erythematous rash Sepsis UTI Immunocompromise state Generalized rash likely secondary to chemotherapy Acute metabolic encephalopathy secondary to infection Sinus tachycardia Leukopenia Agree with IV Rocephin, IV fluids Will give hydrocortisone, antihistamine, Benadryl as needed PT OT, fall precautions Monitor LFTs Blood, urine cultures pending I personally interviewed and examined the patient at bedside. I have reviewed the advanced practitioner's documentation on the date of service referred in note and agree with plan. Patient's care is coordinated with Shantal Yap. Please refer to the documentation above for details of patient's presentation and for discussion of other issues. I spent a total [id number] coordinating, documenting, and providing care for this patient excluding time spent in the performance of separately billed services or time spent by another provider/QHP. (3) Squamous cell carcinoma of lung, stage II Laterality: unspecified laterality Qualified Code(s): C34.90 - Malignant neoplasm of unspecified part of unspecified bronchus or lung (7) Schizophrenia Schizophrenia type: paranoid schizophrenia Qualified Code(s): F20.0 - Paranoid schizophrenia
[2024-09-08] MEDS ORDERED: CALAMINE/PRAMOXINE LOTION 180 APPLN/180 ML BTL EXT PRN (21:28)
[2024-09-08] MEDS ORDERED: GLUCOSE 10 TAB/TUBE PO PRN (21:28)
[2024-09-08] MEDS ORDERED: DEXTROSE 50% 50 ML SYRINGE IV PRN (21:28)
[2024-09-08] MEDS ORDERED: GLUCAGON FOR INJ 1 MG VIAL SQ PRN (21:28)
[2024-09-08] MEDS ORDERED: ONDANSETRON INJ 2 MG/ML 2 ML VIAL IV PRN (21:28)
[2024-09-08] MEDS ORDERED: ACETAMINOPHEN 325 MG TAB PO PRN (21:28)
[2024-09-08] MEDS ORDERED: CARBOHYDRATES FOR HYPOGLYCEMIA PO PRN (21:28)
[2024-09-08] MEDS ORDERED: HYDROCORTISONE SOD SUCCINATE 100 MG/2 ML VIAL IV STA (21:28)
[2024-09-08] MEDS ORDERED: GLUCOSE 40% GEL 15 GM TUBE PO PRN (21:28)
[2024-09-08] MEDS ORDERED: FAMOTIDINE 20 MG TAB PO PRN (21:28)
[2024-09-08] MEDS ORDERED: diphenhydrAMINE Capsule 25 MG CAP PO PRN (21:28)
[2024-09-08] MEDS ORDERED: POLYETHYLENE (MIRALAX) 17 GM PACK PO PRN (21:28)
[2024-09-08] MEDS ORDERED: haloperidoL 5 MG TAB PO PRN (21:28)
[2024-09-08] MEDS ORDERED: MELATONIN 3 MG TAB PO PRN (21:28)
[2024-09-08] MEDS: MEMANTINE HCL 10 MG TAB PO SCH (22:15)
[2024-09-08] MEDS: ENOXAPARIN INJ 40 MG/0.4 ML SYR SQ SCH (22:15)
[2024-09-08] MEDS: METOPROLOL SUCC 25MG EXT REL TAB PO SCH (22:16)
[2024-09-08] MEDS: ASPIRIN 81 MG ECTAB PO SCH (22:19)
[2024-09-08] MEDS: haloperidoL 5 MG TAB PO SCH (22:19)
[2024-09-08] MEDS: MIRTAZAPINE SOLTAB 15 MG PO SCH (22:19)
[2024-09-08] MEDS: CETIRIZINE HCL 10 MG TABLET PO ONE (22:19)
[2024-09-08] MEDS: QUEtiapine FUMARATE 25 MG TABLET PO SCH (22:20)
[2024-09-08] MEDS: QUEtiapine FUMARATE 200 MG TAB PO SCH (22:20)
[2024-09-08] MEDS: HYDROCORTISONE SOD 100 MG in SYRINGE 0 ML IV ONE (22:21)
[2024-09-08] MEDS: SIMVASTATIN 40 MG TAB PO SCH (22:21)
[2024-09-08] MEDS: INSULIN ASPART PER UNIT CHARGE SC SCH (22:56)
[2024-09-08] MEDS: LANTUS PER UNIT CHARGE SQ SCH (22:56)
[2024-09-09] MEDS ORDERED: HEPARIN 100 UNIT/ML 5ML FLUSH FLUSH PRN (05:27)
[2024-09-09 07:03] VITALS: O2SAT 96
[2024-09-09 07:25] LABS: Hematocrit (blood only) 32.1 % (37.0-47.0); Hemoglobin 10.7 g/dl (12.0-16.0); Immature Granulocytes # (auto) 0.01 K/uL (0.01-0.20); Immature Granulocytes % (auto) 0.6 %; Lymphocytes # (auto) 0.26 K/uL (1.20-3.40); Lymphocytes % (auto) 15.2 %; Mean Corpuscular Hemoglobin 30.5 pg (25.0-34.0); Mean Corpuscular Hgb Conc 33.3 g/dL (32.0-36.0); Mean Corpuscular Volume 91.5 fL (80.0-100.0); Monocytes # (auto) 0.04 K/uL (0.11-0.59); Monocytes % (auto) 2.3 %; Neutrophils % (auto) 81.9 %; Platelet Count 126 K/uL (130-400); RDW Coefficient of Variation 13.8 % (11.5-14.5); Red Blood Count 3.51 M/uL (4.20-5.40); White Blood Count 1.71 K/ul (4.8-10.8)
[2024-09-09 07:57] LABS: Albumin Globulin Ratio 1.3 (0.9-2); Albumin Level 3.2 gm/dl (3.4-5.0); BUN Creatinine Ratio 20.7 (10-20); Bilirubin,Total 0.3 mg/dl (0.2-1.0); Calcium 7.8 mg/dl (8.6-10.3); Creatinine Clr Calc Pharmacy 63.1 ml/min; Globulin 2.5 gm/dl (2.5-4.0); Potassium 3.9 mmol/L (3.5-5.1); Total Protein 5.7 gm/dl (6.0-8.3)
[2024-09-09] MEDS: MEMANTINE HCL 5 MG TAB PO SCH (08:53)
[2024-09-09] MEDS: CETIRIZINE HCL 10 MG TABLET PO SCH (08:53)
[2024-09-09] MEDS: haloperidoL 1 MG TAB PO SCH (08:53)
[2024-09-09] MEDS: TAMSULOSIN HCL 0.4 MG CAP PO SCH (08:55)
[2024-09-09] MEDS: QUEtiapine FUMARATE 25 MG TABLET PO SCH (08:55)
[2024-09-09] MEDS ORDERED: [UNRECOGNIZED DRUG - REMARK] PO SCH (11:30)
[2024-09-09] MEDS: cefTRIAXone SODIUM 2,000 MG/50 ML BAG IV SCH (12:18)
[2024-09-09 12:25] VITALS: BP 146/75; RESP 20; TEMP 97.5
--- NOTE | 2024-09-09 12:38 | Discharge Summary ---
Discharge Summary Date of Service September 09, 2024 Principal Dx & Hospital Course #1 = Principal Diagnosis (1) Sepsis: (2) Urinary tract infection: (3) Squamous cell carcinoma of lung, stage II: (4) Diabetes: (5) Hypertension: (6) Schizophrenia: (7) Acute metabolic encephalopathy: (8) Drug-induced skin rash: (9) Pancytopenia due to antineoplastic chemotherapy: Plan Patient 74-year-old female undergoing chemo and radiation treatment for squamous cell lung cancer presented to the emergency room with increasing confusion. She has a long history of recurrent urinary tract infections. Outpatient urine culture was growing E. coli. Patient was admitted to the hospital. She was started on IV Rocephin which the E. coli is sensitive to. Other medical issues remained stable throughout her hospitalization. There was concern for possible drug rash and drug eruption presumably from the Taxol. This improved to her hospitalization. On the day of discharge patient's children at the bedside. They reported that her mentation was back to baseline. Her sepsis had resolved. They expressed concerns that she does much better in her own home as far as her mental health is concerned. While we are discussing this her PCP called stating that they have called in an antibiotic for her UTI. We discussed the benefits of her being able to continue to care for self at home. She can be converted to oral antibiotics. She will continue other outpatient oncological care. She will be discharged home. Notes For Next Care Provider Medication Changes From Visit Magic mouthwash for throat pain associated with rib deviation Cefdinir for UTI Admission HPI Per Admitting Provider This is a 74 yr old F who has a significant PMH of T2DM insulin dependent, HTN, HLD, SCC of Right Lung stage IIB currently receiving taxol/carboplatin weekly and daily XRT, schizophrenia, mood disorder, dementia and osteoporosis who presents to ED 2/2 increased confusion, disorientation x 2 days. Daughter is at bedside who helps elicit history. Pt received chemotherapy yesterday. She had lab work and a urine drawn on 09/06 that showed she had a UTI and daughter states they were just told that today. Daughter notes increased confusion, disorientation, weakness and walking into [facility]. She generally feels she isn't herself. After receiving chemo last evening she developed a diffuse red rash all over body. It is not painful for itchy. She tried benadryl w/o improvement. Pt reports hx of UTI before. She is also receiving daily radiation tx and last tx was this morning. She denies f/c/s, chest pain, n/v/d, abd pain, dysuria, increased urg/freq with urination or hematuria. She does have chronic sob/cough 2/2 lung cancer. She has been taking her medications as prescribed. From a paranoid schizophrenia standpoint she has been doing very well on current medication regimen. In ED pt met sepsis criteria 2/2 leukopenia and tachycardia. She received 1L of IVF and was started on IV ceftriaxone. Admission Exam Per Admitting Provider See H&P Discharge Exam Constitutional: Alert HEENT: Mucous membranes slightly dry Lungs: Decreased breath sounds CV: S1-S2, regular Abdomen: Soft, nontender, nondistended Extremities: No significant edema Neuro: No focal deficits, generally weak Psych: Cooperative, normal mood Updated Medication List Medication Instructions Recorded Confirmed Type simvastatin 40 mg tablet 40 mg PO PM 05/20/20 09/08/24 History alendronate 70 mg tablet (Fosamax) 70 mg PO WK 07/27/24 09/08/24 History aspirin 81 mg tablet,delayed 81 mg PO QPM 07/27/24 09/08/24 History release calcium 600 mg (as carbonate)-vit 1 tab PO QDL 07/27/24 09/08/24 History D3 10 mcg (400 unit) chewable tablet (Calcium 600 with Vitamin D3) cranberry 500 mg capsule 500 mg PO QDL 07/27/24 09/08/24 History haloperidol 10 mg tablet 10 mg PO HS 07/27/24 09/08/24 History haloperidol 2 mg tablet 2 mg PO QAM 07/27/24 09/08/24 History haloperidol 5 mg tablet 5 mg PO TID PRN Unknown 07/27/24 09/08/24 History haloperidol decanoate 100 mg/mL 100 mg IM MONTHLY 07/27/24 09/08/24 History intramuscular solution insulin glargine 100 unit/mL (3 25 unit subcut QPM 07/27/24 09/08/24 History mL) subcutaneous pen (Lantus Solostar U-100 Insulin) losartan 25 mg tablet 25 mg PO QAM 07/27/24 09/08/24 History memantine 10 mg tablet 10 mg PO QPM 07/27/24 09/08/24 History memantine 5 mg tablet 5 mg PO QAM 07/27/24 09/08/24 History mirtazapine 45 mg disintegrating 45 mg PO HS 07/27/24 09/08/24 History tablet (Remeron SolTab) ydeudjty-mhwt-nqfng acid 120 1 tab PO QDL 07/27/24 09/08/24 History mcg-herbal no.293 25 mg chewable tablet (Alive Women's MVI No Sugar) omega 5-vae-adu-fish oil 1,000 mg 1 cap PO QDL 07/27/24 09/08/24 History (120 mg-180 mg) capsule (Fish Oil) ondansetron 8 mg disintegrating 8 mg PO Q8H PRN nausea and vomiting 07/27/24 09/08/24 History tablet prochlorperazine maleate 10 mg 10 mg PO Q6H PRN Nausea And 07/27/24 09/08/24 History tablet (Compazine) Vomiting tamsulosin 0.4 mg capsule 0.4 mg PO QAM 07/27/24 09/08/24 History cefdinir 300 mg capsule 300 mg PO BID 5 days #10 caps 09/08/24 Rx metoprolol succinate 25 mg 37.5 mg PO PM 09/08/24 09/08/24 History tablet,extended release 24 hr quetiapine 200 mg tablet 200 mg PO HS 09/08/24 09/08/24 History quetiapine 25 mg tablet 25 mg PO HS 09/08/24 09/08/24 History quetiapine 50 mg tablet 50 mg PO QAM 09/08/24 09/08/24 History Magic Mouthwash 300 mL mouthwash 10 ml mucous membrane TID PRN sore 09/09/24 Rx throat #300 mL Hospital Stay Data Consultations 09/08/24 18:02 ED Decision to Admit Stat 09/08/24 19:26 Consult Radiation Oncology Routine Diagnostic Imagining Performed Reviewed imaging, laboratory and diagnostic studies. Pertinent findings as below. WBCs 1.7 Hemoglobin 10.7 Platelets of 126 Electrolytes stable Creatinine 0.58 Glucose 180 AST 114 ALT 61 Procalcitonin 0.44 Blood and urine cultures pending Pending Results Patient Have Any Pending Studies at Discharge: Yes Discharge Instructions Given to Patient (Per Discharging Provider) Complete course of oral antibiotics Continue with your usual oncology care and radiation Home Health Attestation I certify that this patient is under my care and that I, or a physicians university administrative assistant working with me, had a face to-face encounter that meets the home health [id number] encounter requirements with this patient. The encounter with the patient was in whole, or in part, for the following medical condition, which is the primary reason for home health care (list medical condition): I certify that, based on my findings, the following services are medically necessary home health services: My clinical findings support the need for the above services because: Further, I certify that my clinical findings support that this patient is homebound (i.e. absences from home require considerable and taxing effort and are for medical reasons or uatsdin services or infrequently or of short duration when for other reasons) because: Certification for Home Health Services: Based on the above findings, I certify that this patient is confined to the home and needs intermittent mcfp care, physical therapy and/or speech therapy or continues to need occupational therapy. The patient is under my care, and I have initiated the establishment of the plan of care. This patient will be followed by a physician who will periodically review the plan of care. Total Time Total Time Spent Total Time Spent (In Minutes): 33
--- NOTE | 2024-09-09 13:07 | Radiation OncologyConsultation ---
Date of Consultation September 09, 2024 Assessment & Plan (1) Squamous cell carcinoma of lung, stage II: Laterality: unspecified laterality Qualified Code(s): C34.90 - Malignant neoplasm of unspecified part of unspecified bronchus or lung Plan ATTENDING ADDENDUM Assessment: Ms. Harding has been admitted to the hospital for infection unrelated to her radiation therapy. The patient is currently under treatment for lung cancer. We have been asked to evaluate her regarding continuing radiation therapy in the inpatient setting. The patient is stable and she would like to continue radiation therapy if possible. Plan: 1. Continue radiation therapy. 2. Continue all other management as per primary team. History of Present Illness Reason for Consultation: To continue radiation therapy. Requesting Physician: Dr. Fernandez Attending Physician: Duncan Reyez DO History of Present Illness [id number] history of smoking. Quit at age 72. 01/07/2023. Low-dose CT for lung cancer screening. 1. LungRADS Category 2: Negative, benign appearance or behavior. 2. LungRADS Category S: Negative. No new/unknown potentially significant inci dental findings requiring additional evaluation. 3. Incidental findings as above. RECOMMENDATIONS: Continued routine annual CT lung cancer screening. Next exam to be arranged by the Lung Cancer Screening Program on or around 01/07/2024. 01/14/2024. Low-dose CT for lung cancer screening. 1. LungRADS Category 3: Positive. Indeterminate, probably benign finding requiring CT chest imaging follow-up. New, 0.4 cm right lower lobe pulmonary nodule. 2. LungRADS Category S: Positive. New, subcarinal lymphadenopathy measuring 2.0 cm. Attention on follow-up is recommended. 3. Incidental findings as above. RECOMMENDATIONS: 1. Management of the significant lung nodule(s) will be done by the Lung Cancer Screening Program (Pulmonary/Thoracic Surgery review to determine next step). 2. Management of the significant incidental finding is deferred to the primary care provider. 05/03/2024. Low-dose CT for lung cancer screening. 1. LungRADS Category 2: Negative, benign appearance or behavior. 2. LungRADS Category S: Positive. Mediastinal adenopathy. Increased size of subcarinal node when compared to 01/07/2023 CT, indeterminate. Please correlate with histopathology. 3. Incidental findings as above. RECOMMENDATIONS: 1. Next exam to be arranged by the Lung Cancer Screening Program. 2. Management of the significant incidental finding is deferred to the primary care provider. 05/17/2024. Primary care follow-up. Complaint of cough. Review of low-dose CT. Pulmonary referral. 05/24/2024. Pulmonary consultation (Dr. Stacy). Nocturnal pulse oximetry study showed episodes of significant drop in oxygen levels throughout the night. Recommendation for oxygen therapy at night. PET/CT ordered. 06/07/2024. PET/CT. 3.3 x 2.2 cm high metabolic intensity subcarinal lymphadenopathy, concerning for lymphoma. Further evaluation with bronchoscopy and biopsy. 06/28/2024. Bronchoscopy. EBUS with biopsies. Path report reveals: Final Diagnosis A. Lung, Bronchial wash: Adequacy: Satisfactory for evaluation. Category: Benign. Interpretation: Benign respiratory epithelial cells., Pulmonary macrophages and mixed inflammation. Other: Cellblock: The histological sections of the cellblock preparation show similar findings. B. Lung, Right middle lobe, Bronchoalveolar lavage: Adequacy: Satisfactory for evaluation. Category: Benign. Interpretation: Pulmonary macrophages and mixed inflammation. Other: Comment: No viral inclusions identified., GMS stain on the cell block is negative for pneumocystisand negative for other fungal elements., Cellblock: The histological sections of the cellblock preparationshow similar findings. C. Lymph Node, 7, EBUS transbronchial fine needle aspiration: Adequacy: Satisfactory for evaluation. Category: Malignant. Interpretation: Squamous cell carcinoma. Other: Cellblock: The histological sections of the cellblock preparation show similar findings. PDL1 and NGS ordered. Comment : Tumor cells (A1, A3 40%) are strong and diffusely positive for p40 and CK5/6. They arenegative for CK7, TTF-1, NUT and synaptophysin. The cytomorphologic features and immunophenotypeare diagnostic of squamous cell carcinoma. 07/12/2024. Medical oncology consultation (Dr. Dumas). Patient has at least TXN2. Stage IIB disease. Will benefit from chemotherapy concurrent with radiation therapy followed by immunotherapy. Planning weekly Taxol carboplatin with radiation. Referral to radiation therapy. 07/27/2024. Radiation oncology consultation (Dr. Angelika Conner). Patient is mildly symptomatic with some dysphagia. Plan for completion of staging workup and then chemotherapy and radiation therapy followed by immunotherapy. 08/05/2024. Brain MRI. No enhancing intracranial lesion to suggest metastasis. 08/10/2024. Medical oncology follow-up. Patient will undergo combined radiation and chemotherapy. 08/17/2024. Initiation of systemic chemotherapy with Taxol and carboplatin. This will be given weekly. 09/08/2024. Patient was noted by the radiation therapist to have a diffuse rash. She was seen following treatment. She had no complaints. There was no itching associated with rash. Our office notified medical oncology that she was having a rash. Benadryl was suggested. If this would worsen she would need to go to emergency room. After leaving radiation oncology her daughter received a call that she had a positive urine culture. She was advised to go to the emergency room. She was seen and admitted. She was noted to have some increased confusion. This typically happens to her when she is having a urinary tract infection. Today was her 17th fraction of treatment. She is planned for 33 fractions. 09/09/2024. Radiation oncology consultation. We are asked to see the patient because she is currently undergoing radiation therapy. She did wish to continue her treatments. Arrangements were made for her to be brought down and receive her treatment today. Allergies Allergy/AdvReac Type Severity Reaction Status Date / Time Penicillins Allergy Unknown Unknown Verified 09/08/24 17:30 Sulfa (Sulfonamide Allergy Unknown Unknown Verified 09/08/24 17:30 Antibiotics) metformin AdvReac Severe Hypglycemia Verified 09/08/24 17:30 Home Medications Medication Instructions Recorded Confirmed Type simvastatin 40 mg tablet 40 mg PO PM 05/20/20 09/08/24 History alendronate 70 mg tablet (Fosamax) 70 mg PO WK 07/27/24 09/08/24 History aspirin 81 mg tablet,delayed 81 mg PO QPM 07/27/24 09/08/24 History release calcium 600 mg (as carbonate)-vit 1 tab PO QDL 07/27/24 09/08/24 History D3 10 mcg (400 unit) chewable tablet (Calcium 600 with Vitamin D3) cranberry 500 mg capsule 500 mg PO QDL 07/27/24 09/08/24 History haloperidol 10 mg tablet 10 mg PO HS 07/27/24 09/08/24 History haloperidol 2 mg tablet 2 mg PO QAM 07/27/24 09/08/24 History haloperidol 5 mg tablet 5 mg PO TID PRN Unknown 07/27/24 09/08/24 History haloperidol decanoate 100 mg/mL 100 mg IM MONTHLY 07/27/24 09/08/24 History intramuscular solution insulin glargine 100 unit/mL (3 25 unit subcut QPM 07/27/24 09/08/24 History mL) subcutaneous pen (Lantus Solostar U-100 Insulin) losartan 25 mg tablet 25 mg PO QAM 07/27/24 09/08/24 History memantine 10 mg tablet 10 mg PO QPM 07/27/24 09/08/24 History memantine 5 mg tablet 5 mg PO QAM 07/27/24 09/08/24 History mirtazapine 45 mg disintegrating 45 mg PO HS 07/27/24 09/08/24 History tablet (Remeron SolTab) qcabodtj-ospa-poxiy acid 120 1 tab PO QDL 07/27/24 09/08/24 History mcg-herbal no.293 25 mg chewable tablet (Alive Women's MVI No Sugar) omega 8-ylo-ydx-fish oil 1,000 mg 1 cap PO QDL 07/27/24 09/08/24 History (120 mg-180 mg) capsule (Fish Oil) ondansetron 8 mg disintegrating 8 mg PO Q8H PRN nausea and vomiting 07/27/24 09/08/24 History tablet prochlorperazine maleate 10 mg 10 mg PO Q6H PRN Nausea And 07/27/24 09/08/24 History tablet (Compazine) Vomiting tamsulosin 0.4 mg capsule 0.4 mg PO QAM 07/27/24 09/08/24 History cefdinir 300 mg capsule 300 mg PO BID 5 days #10 caps 09/08/24 Rx metoprolol succinate 25 mg 37.5 mg PO PM 09/08/24 09/08/24 History tablet,extended release 24 hr quetiapine 200 mg tablet 200 mg PO HS 09/08/24 09/08/24 History quetiapine 25 mg tablet 25 mg PO HS 09/08/24 09/08/24 History quetiapine 50 mg tablet 50 mg PO QAM 09/08/24 09/08/24 History Magic Mouthwash 300 mL mouthwash 10 ml mucous membrane TID PRN sore 09/09/24 Rx throat #300 mL Patient History Medical History Port-A-Cath in place right chest Implantable loop recorder present Wound of foot Surgical History Hx of tubal ligation S/P tonsillectomy Status post bronchoscopy with biopsy 06/28/24 Dr. Tawanna Luther Family History Mother Scleroderma Father Myocardial infarction, Onset Age: 72 Sister Ovarian cancer Cervical cancer, Onset Age: 43 Surgery + Chemo Social History Smoking Status: Former smoker Tobacco Type: Cigarettes and Cigars Age Started Using Tobacco: 19; Age Quit Using Tobacco: 72; packs per day: 2; Cigarettes Per Day: "I dont know"; Second Hand Exposure: No; Do You Dip or Chew Tobacco: No; Hx Alcohol Use: No Hx Substance Use: No Preferred Language: [place]er Communication Ability: Effective Visual Impairment: No Limitations Hearing Ability: Normal [employer] Consultant Required: No Beliefs That Will Affect Care: None marital status: Current Living Situation: Alone Current Living Situation Comment: Lives Alone in Apartment. Caregiver from 3-9. Daughter and Son lives close current occupational status: disabled How many Children do You have: 4 Feels Safe at Home: Yes Assistive Devices: Glasses and Walker Radiation History Diagnosis: Chest/mediastinum. SCC. Stage [id number]. Stage IIB. Treatment: 08/17/2024. Initiation of combined radiation and chemotherapy. Chemotherapy comprised of weekly Taxol and carboplatin. Review of Systems Review of Systems: 13 point review of systems is negative o ther than what is in the history of present illness. Physical Exam Constitutional: WD/WN, vitals as above Eyes: PERRL, conjunctivae normal, anicteric sclerae ENMT: Ears: no hearing impairment Neck: trachea midline, no thyromegaly Respiratory: normal respiratory effort, lungs clear to auscultation Auscultation: + diminished lung sounds Cardiovascular: Rate/Rhythm: regular rate and regular rhythm Heart Sounds: + murmur (2/6 systolic murmur.) Gastrointestinal (Abdomen): normal bowel sounds, soft, nontender, no hepatosplenomegaly Skin: no rashes, warm and dry Psychiatric: A+Ox3, euthymic affect Results (Rad Onc) Pathology Results: were reviewed and pertinent findings noted in HPI Imaging Studies: were reviewed and pertinent findings noted in HPI Time Spent Midlevel I spent [15] minutes in preparation for this follow up evaluation including reviewing all the clinical records, reviewing laboratory studies, pathology reports and imaging results. I spent [20] minutes with direct face to face interaction with the patient and/or family including performing a physical exam and answering all questions. I spent [15] minutes documenting this patient's visit. Attending I spent 5 minutes in preparation for this follow up evaluation including reviewing all the clinical records, reviewing laboratory studies, pathology reports and imaging results. I spent 5 minutes with direct face to face interaction. I spent 5 minutes documenting this patient's visit. PG Care Time/CCT Total # of Minutes Spent Total Time Spent with Patient: Total time spent is greater than 50% in coordination of care (as documented) at patient's floor/unit and/or counseling patient: Coding [place] [address] INT INP/OBS CARE 1/40MIN Patient Type Established History Problem Focused Exam Problem Focused Medical Decision Making Straight Forward Diagnoses Stage II squamous cell carcinoma of lung, unspecified laterality C34.90 Laterality: unspecified laterality
[2024-09-09] MEDS: CALCIUM 600MG + VIT D 400 IU TAB PO SCH (13:10)
[2024-09-09 14:07] VITALS: PULSE 97
--- NOTE | 2024-09-10 00:59 | Electrocardiogram Report ---
Test Reason : Blood Pressure : */* mmHG Vent. Rate : 110 BPM Atrial Rate : 110 BPM P-R Int : 130 ms QRS Dur : 74 ms QT Int : 340 ms P-R-T Axes : 76 50 71 degrees QTcB Int : 460 ms Sinus tachycardia with Premature ventricular complexes Otherwise normal ECG When compared with ECG of 17-Jun-2024 13:38, Premature ventricular complexes are now Present Confirmed by Vishnu Jewell ([id number]) on 09/10/2024 12:58:43 AM Referred By: REFERRED SELF Confirmed By: Vishnu Jewell
== END 2024-09-09 14:43 | disposition home or self-care (01) | DRG 871 ==
LOC: ED 14:01 → SUATTDRO 18:19 → 2W 18:19